=== PATIENT | male | born 1965 | race Caucasian/White ===

== ENCOUNTER → 2019-11-05 09:34 | Outpatient (BNVA) | payer MEDICARE, MEDICAID, SELFPAY | PROVIDERS: PCP Internal Medicine Cardiovascular Disease; Visit Provider Registered Nurse | DX: Z79.899 Other long term (current) drug therapy (principal); F02.80 Dementia in other diseases classified elsewhere, unspecified severity, without behavioral disturbance, psychotic disturbance, mood disturbance, and anxiety; F20.9 Schizophrenia, unspecified | CPT/HCPCS: 80164 ==

== ENCOUNTER → 2020-05-04 14:01 | Outpatient (BNVA) | payer OTHER, SELFPAY | PROVIDERS: Visit Provider Registered Nurse | DX: F20.9 Schizophrenia, unspecified (principal) | CPT/HCPCS: 80061; 83036 ==

== ENCOUNTER → 2020-12-09 10:58 | Outpatient (BNVA) | payer MEDICARE, MEDICAID, SELFPAY ==
[2020-12-09 08:18] VITALS: BP 141/87; BMI 30.5
== END ==
PROVIDERS: Visit Provider Emergency Medicine
DX: R63.4 Abnormal weight loss (principal); F20.9 Schizophrenia, unspecified
CPT/HCPCS: 71046; 80053; 82105; 82378; 84443; 85025; 86304; G0103

== ENCOUNTER → 2020-12-14 00:01 | Outpatient (BNVA) | payer MEDICARE, MEDICAID, SELFPAY ==
[2020-12-09 08:18] VITALS: BP 141/87; BMI 30.5
== END ==
PROVIDERS: Visit Provider Emergency Medicine
DX: R63.4 Abnormal weight loss (principal); F20.9 Schizophrenia, unspecified; R97.20 Elevated prostate specific antigen [PSA]
CPT/HCPCS: 82274

== ENCOUNTER 2020-12-18 08:26 | Emergency (ER) | payer MEDICARE, MEDICAID, SELFPAY ==
[2020-12-09 08:18] VITALS: BP 141/87; BMI 30.5
[2020-12-18] VITALS (7 sets, daily range): BP systolic 89–103; BP diastolic 53–74; PULSE 52–75; RESP 14–21; TEMP 36.6; O2SAT 96–100; BMI 24.0
--- NOTE | 2020-12-18 08:44 | ECG_ITS ---
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 Measurements Intervals [place] Rate: 58 P: 50 AK: 141 QRS: -36 QRSD: 154 T: -85 QT: 509 QTc: 502 Interpretive Statements SINUS BRADYCARDIA POSSIBLE LEFT ATRIAL ENLARGEMENT [-0.1mV P WAVE IN V1/V2] LEFT AXIS DEVIATION [QRS AXIS < -30] RIGHT BUNDLE BRANCH BLOCK [120+ ms QRS DURATION, UPRIGHT V1, 40+ ms S IN I/aVL/V4/V5/V6] MARKED T-WAVE ABNORMALITY, CONSIDER ANTEROLATERAL ISCHEMIA [-0.5+ mV T WAVE IN I/aVL/V3-V6] MODERATE T-WAVE ABNORMALITY, CONSIDER INFERIOR ISCHEMIA [-0.1+ mV T WAVE IN II/aVF] No previous ECG available for comparison Electronically Signed On 12-18-2020 18:13:02 CDT by Harleen Nielsen M.D. [id number]
[2020-12-18 08:55] LABS: Basophils # 0.1 10^3/uL (0.0-0.1); Basophils % 0.7 %; Eosinophils # 0.1 10^3/uL (0.0-0.8); Eosinophils % 0.7 %; Hematocrit 46.3 % (42.0-52.0); Hemoglobin 15.2 g/dL (11.7-16.6); Lymphocytes # 1.1 10^3/uL (0.8-4.8); Lymphocytes % 15.3 %; Mean Corpuscular HGB Conc 32.8 g/dL (30.0-36.0); Mean Corpuscular Hemoglobin 28.6 pg (28.0-34.0); Mean Corpuscular Volume 87.2 fL (80-94); Mean Platelet Volume 9.8 fL (7.4-10.4); Monocytes # 0.4 10^3/uL (0.2-0.9); Neutrophils # 5.27 10^3/uL (1.8-7.7); Nucleated Red Blood Cells % 0 %; Platelet Count 302 10^3/cmm (130-400); Red Blood Count 5.31 10^6/uL (4.1-5.3); White Blood Count 6.9 10^3/uL (4.0-10.0)
--- NOTE | 2020-12-18 09:00 | ED_ITS ---
HPI - Nausea/Vomiting/Diarrhea General: Chief complaint: Nausea/Vomiting/Diarrhea Stated complaint: NAUSEA/VOMITING Time Seen by Provider: 12/18/20 08:33 History of Present Illness: HPI Narrative: 55-year-old male who was brought in by his sister via EMS. He was supposed to be seen at the doctor today she was concerned and describes being stressed about having him in her car so she called EMS to come to the emergency room. Patient has had a 40 pound weight loss over the last several months he has an ongoing outpatient work-up for this. On arrival here patient's blood sugar is 135 he is requesting water. He has not had any vomiting in route. He denies any abdominal pain or chest pain. MD elicited complaint: nausea and vomiting Onset (ago): week(s) Description of vomiting: food contents and watery Associated nausea: Yes Associated abdominal pain: No Severity: moderate Quality: cramping Exacerbating factors: none Relieving factors: none Associated symtoms: Reports anxiety, anorexia, malaise, myalgias, nausea and other; Denies altered mental status, bloating, change in vision, chest pain, cough, diaphoresis, decreased urine output, dizziness, dysuria, epistaxis, fatigue, fecal incontinence, fevers/chills, headache(s), numbness, palpitations, rash, short of breath, syncope, tenesmus, tinnitus or weakness Review of Systems Const: Reports: malaise; Denies: fatigue or diaphoresis Eyes: Denies: change in vision ENMT: Denies: tinnitus or epistaxis Card: Denies: chest pain, palpitations or syncope Resp: Denies: dyspnea, productive cough or non-productive cough GI: Reports: nausea; Denies: bloating or fecal incontinence : Denies: dysuria Skin/Breast: Denies: rash or pruritus Neuro: Denies: headache(s) or dizziness Psych: Reports: anxiety PFSH ED PFSH: Medical History (Updated 12/18/20 @ 12:38 by Antonio Brady DO) Chronic schizophrenia Dementia in other diseases classified elsewhere without behavioral disturbance High prostate specific antigen (PSA) History of CA 125 test Weight loss, abnormal Surgical History (Updated 02/21/20 @ 18:02 by Harleen Nielsen MD) S/P VSD repair Family History (Updated 05/07/20 @ 11:54 by Zoie Mo RN) Other CAD (coronary artery disease) Cancer Diabetes Hypertension Psychiatric illness Stroke Social History Smoking and tobacco status: never smoked Second hand smoke exposure: Yes Alcohol intake: never Adopted: No Caregiver/support person: Yes Lives independently: No Household members: family Marital status: Single Number of children: 0 Number of grandchildren: 0 Highest education level completed: 10th Grade service: No Current occupational status: disabled Current occupational exposures/hazards: No Pets and animals: Yes Pets & animals: cat(s) and dog(s) History of recent travel: No Leisure activites: other Leisure activities details: watch tv, bowling and PSR Sexually active: No Current gender identity: Male Monika/Evangelical: None Special monika needs: No Agree to transfusion: Yes Financial difficulty paying for basics: Not Very Hard Physical Exam Const: COMMON NORMALS: no acute distress EXAM LIMITATIONS: no altered mental status GENERAL APPEARANCE: cooperative and comfortable ORIENTATION/CONSCIOUSNESS: Yes awake, Yes oriented to person, Yes oriented to place and Yes oriented to time HENMT: COMMON NORMALS: normocephalic, atraumatic, hearing grossly normal bilaterally, external ears normal, EAC's normal, TM's normal bilaterally, Normal nasal mucous membranes and turbinates present, moist oral mucous membranes and oropharynx normal HEAD & SCALP: normocephalic and atraumatic NOSE: Normal nasal mucous membranes and turbinates present EXTERNAL EAR: Yes external ears normal EXTERNAL AUDITORY CANAL: EAC's normal TYMPANIC MEMBRANE: TM's normal bilaterally Eye: COMMON NORMALS: Equal, round and reactive pupils present, EOMs intact bilaterally, conjunctivae normal and no scleral icterus CONJUNCTIVA: Yes conjunctivae normal PUPIL: Yes Equal, round and reactive pupils present Neck/C-Spine: COMMON NORMALS: full ROM, no lymphadenopathy, supple and no JVD Lymph: LYMPHATIC: no lymphadenopathy noted and no lymphedema noted Resp: COMMON NORMALS: normal respiratory effort, No retractions, No use of accessory muscles and clear to auscultation bilaterally AUSCULTATION: clear to auscultation bilaterally Cardio: COMMON NORMALS: no JVD, regular rate, regular rhythm and No murmurs present (Cardio) RATE: regular rate RHYTHM: regular rhythm GI: COMMON NORMALS: Soft to palpation and No hepatosplenomegaly present AUSCULTATION: Yes normoactive bowel sounds PALPATION: Yes Soft to palpation, No Tenderness to palpation present (GI), No Guarding due to palpation present (GI) and Yes No hepatosplenomegaly present Extremity: COMMON NORMALS: normal to inspection, capillary refill normal, no clubbing, cyanosis or edema, no calf tenderness and no pedal edema Neuro: SENSORIUM/ORIENTATION: Yes oriented to person, Yes oriented to place and Yes oriented to time Skin: COMMON NORMALS: no rashes or lesions noted GENERAL SKIN EXAM: no rashes or lesions noted Course Vital Signs: Vital signs: Vital Signs Temperature 97.8 F 12/18/20 08:32 Pulse Rate 52 L 12/18/20 13:08 Respiratory Rate 14 12/18/20 13:08 Blood Pressure 89/67 12/18/20 12:03 Pulse Oximetry 100 12/18/20 13:08 MDM - Nausea/Vomiting/Diarrhea MDM Narrative: Medical decision making narrative: No significant findings here in the ER. Patient was given potassium supplement for his hypokalemia p.o. and IV as well as IV fluids we will discharge him home with antiemetics potassium supplement follow-up with primary care he is possibly seeing surgery for endoscopy encouraged him to keep that appointment reviewed the CT findings with him. Lab Data: Labs: Lab Results 12/18/20 12/18/20 12/18/20 Range/Units 08:47 08:47 10:40 WBC 6.9 (4.0-10.0) 10^3/ uL RBC 5.31 H (4.1-5.3) 10^6/u L Hgb 15.2 (11.7-16.6) g/dL Hct 46.3 (42.0-52.0) % MCV 87.2 (80-94) fL MCH 28.6 (28.0-34.0) pg MCHC 32.8 (30.0-36.0) g/dL RDW 14.0 (12.1-15.1) % Plt Count 302 (130-400) 10^3/c mm MPV 9.8 (7.4-10.4) fL Neut % (Auto) 77.0 % Lymph % (Auto) 15.3 % [place]phill % (Auto) 6.0 % Eos % (Auto) 0.7 % Baso % (Auto) 0.7 % Neut # (Auto) 5.27 (1.8-7.7) 10^3/u L Lymph # (Auto) 1.1 (0.8-4.8) 10^3/u L Hemphill # (Auto) 0.4 (0.2-0.9) 10^3/u L Eos # (Auto) 0.1 (0.0-0.8) 10^3/u L Baso # (Auto) 0.1 (0.0-0.1) 10^3/u L Nucleated RBC % (a uto) 0 % Nucleated RBCs # 0.0 /100WBC Sodium 139 (136-145) mmol/L Potassium 2.7 L* (3.5-5.1) mmol/L Chloride 96 L (98-107) mmol/L Carbon Dioxide 24 (22-29) mmol/L Anion Gap 21.7 H (5-19) BUN 20 (6-20) mg/dL Creatinine 0.9 (0.7-1.2) mg/dL GFR Calculation 87.0 L (90-130) mL/min Glucose 113 (65-115) mg/dL Calculated Osmolal ity 291 (285-295) mOsm/k g Calcium 9.1 (8.5-10.5) mg/dL Magnesium 2.3 (1.7-2.3) mg/dL Total Bilirubin 0.9 (0.15-1.2) mg/dL AST 19 (0-40) U/L ALT 15 (0-41) U/L Alkaline Phosphata se 80 (40-130) IU/L Creatine Kinase 24 L (39-308) U/L Total Protein 7.5 (6.6-8.7) g/dL Albumin 3.9 (3.5-5.2) g/dL Globulin 3.6 (1.3-4.6) g/dL Lipase 28 (13-60) U/L Urine Color [place] (Yellow) Urine Appearance Turbid (CLEAR) Urine pH 5 (5-7) Ur Specific Gravit y 1.025 (1.005-1.030) Urine Protein Trace (Negative) Urine Glucose (UA) Norm (Normal) Urine Ketones 1+ H (Negative) Urine Blood Neg (Negative) Urine Nitrate Negative (Negative) Urine Bilirubin 1+ H (Negative) Urine Urobilinogen 8 H (Negative) mg/dL Ur Leukocyte Yamileth ase Negative (Negative) Urine RBC 0-4 H (0-2) /hpf Urine WBC 0-4 H (0-5) /hpf Ur Squamous Epith Cells 0-4 H (0-5) /hpf Amorphous Sediment 4+ /hpf Urine Bacteria 1+ H (NONE) /hpf Discharge Plan Discharge Patient Disposition: Home Clinical Impression: Weight loss, abnormal, Nausea & vomiting, Hypokalemia Condition: Stable Prescriptions: New promethazine 25 mg tablet 25 mg PO QID PRN (Reason: nausea and vomiting) Qty: 30 RF: 0 potassium chloride 20 mEq tablet extended release 20 meq PO DAILY Qty: 14 RF: 0 No Action magnesium oxide 250 mg magnesium tablet 250 mg PO DAILY@1500 RF: 0 hydroxyzine HCl 25 mg tablet 25 mg PO BID PRN (Reason: anxiety) Qty: 60 RF: 2 Depakote 250 mg tablet,delayed release (DR/EC) 250 mg PO DAILY@08 RF: 0 Aricept 10 mg tablet 10 mg PO BEDTIME@2100 RF: 0 Depakote 500 mg tablet,delayed release (DR/EC) 500 mg PO BEDTIME@2100 RF: 0 Celexa 20 mg tablet 30 mg PO DAILY@1200 RF: 0 buspirone 15 mg tablet 15 mg PO BID@12,15 RF: 0 Namenda 10 mg tablet 10 mg PO DAILY@0800 RF: 0 Namenda 5 mg tablet 5 mg PO DAILY@0800 RF: 0 Discharge Orders: Discharge ED (Routine); Ordered 12/18/20 Ordered By: Antonio Brady Discharge Diet: Clear Liquid Patient Instructions: Opioid Safety Activity Restrictions/Additional Instructions: Liquid diet for 24 to 48 hours then advance as tolerated recommend avoiding spicy foods, red meats, tomato-based sauces. Follow-up with Dr. Goldberg and Dr. Jain as previously scheduled. Coding Level of Care Code ED Sandal Parts Assembler for Carla Hyatt
[2020-12-18] MEDS: ondansetron 2 mg/ML SDV 2 mL 4 MG IVP (09:11)
[2020-12-18] MEDS: sodium chloride 0.9% 1,000 ML 999 ML IV ×2 (09:11→11:59)
[2020-12-18 09:15] LABS: Alanine Aminotransferase 15 U/L (0-41); Albumin Level 3.9 g/dL (3.5-5.2); Alkaline Phosphatase 80 IU/L (40-130); Anion Gap 21.7 (5-19); Aspartate Amino Transferase 19 U/L (0-40); Blood Urea Nitrogen 20 mg/dL (6-20); Calcium 9.1 mg/dL (8.5-10.5); Carbon Dioxide 24 mmol/L (22-29); Chloride 96 mmol/L (98-107); Creatine Phosphokinase 24 U/L (39-308); Globulin 3.6 g/dL (1.3-4.6); Glucose 113 mg/dL (65-115); Lipase 28 U/L (13-60); Magnesium 2.3 mg/dL (1.7-2.3); Osmolality Calculated 291 mOsm/kg (285-295); Sodium 139 mmol/L (136-145); Total Bilirubin 0.9 mg/dL (0.15-1.2); Total Protein 7.5 g/dL (6.6-8.7)
[2020-12-18 09:41] LABS: Potassium 2.7 mmol/L (3.5-5.1)
[2020-12-18] MEDS: lidocaine 1% 5 ML in potassium chloride premix 100 ML 50 ML IV (09:59)
[2020-12-18] MEDS: potassium chloride oral liq 20 mEq/15 mL UDC 40 MEQ PO (10:00)
--- NOTE | 2020-12-18 10:26 | CT_ITS ---
WS: [id number] CT ABDOMEN AND PELVIS WITH CONTRAST HISTORY: Abdominal pain, LEFT lower quadrant pain for 3 days with nausea and vomiting. TECHNIQUE: Imaging performed of the abdomen and pelvis with IV contrast. Single phase imaging of the abdomen. Coronal and sagittal reformats are submitted. All CT scans at [facility] use at least one of these dose optimization techniques: automated exposure control; mA and/or kV adjustment per patient size (includes targeted exams where dose is matched to clinical indication); or iterativ e reconstruction. IV CONTRAST: Omnipaque 300; 95 mL IV. Oral contrast: No DLP: 1290.88 mGy.cm COMPARISON: None available. Lower thorax: 6 mm nodule at the RIGHT lung base inseparable from the diaphragm contains a central ca lcification. Heart is normal size. No hiatal hernia. Liver/biliary system: Normal size with no intrahepatic dilatation. Gallbladder: Slightly contracted gallbladder. No stones identified. Pancreas: Normal. Spleen: Normal. Adrenal glands: Normal. Right kidney: Normal. Left kidney: Normal. Aorta: Normal. Lymphadenopathy: None. Free fluid: None. GI tract: The appendix is very small caliber. There is a calcific or medicinal tablet at the terminal ileum. There is no evidence for obstruction of the small bowel. There is very mild fluid distention of the small bowel. This may be medicinal tablet. Numerous diverticula in the descending and sigmoid colon. No definite acute diverticulitis. Abdominal wall: Fat-containing umbilical hernia. Pelvis: Markedly enlarged prostate gland is heterogeneous. Prostate measures 5.1 x 4.7 x 5.7 cm. No f luid or adenopathy. Urinary bladder is normally distended. Bones: L5 anterolisthesis by 7 mm. LEFT lateral pars defect. CT/CT abdomen pelvis w con* [id number] IMPRESSION: 1. Descending and sigmoid diverticulosis. No definite evidence for acute diver ticulitis at this time. There is no free fluid or adenopathy. 2. Mild fluid distention of small bowel. 3. There is a calcific density or medicinal tablet in the terminal ileum. Loca ramana at the junction between the cecum and small bowel. This does not appear to be causing a significant obstruction. If patient continues with pain a follow-u p abdomen radiograph would readily identify whether this is a calcific density which resolves or calcification associated with the terminal ileum. 4. Appendix appears normal. 5. 6 mm nodule at the RIGHT lung base. Recommend follow-up chest CT in 6 month s. 6. Marked prostate gland enlargement.
[2020-12-18] MEDS: iohexol 300 mg/mL 100 mL Btl IV (11:27)
[2020-12-18 11:32] LABS: Add Urine Microscopic? YES; Bilirubin Urine 1+ (Negative); Blood Urine Neg (Negative); Glucose Urine UA Norm (Normal); Ketones Urine 1+ (Negative); Leukocyte Esterase Urine Negative (Negative); Nitrate Urine Negative (Negative); Protein Urine Trace (Negative); Specific Gravity, Urine 1.025 (1.005-1.030); Urine Appearance Turbid (CLEAR); Urine Color Orange (Yellow); Urobilinogen Urine 8 mg/dL (Negative); pH Urine 5 (5-7)
[2020-12-18 11:33] LABS: Add Urine Culture? No; Amorphous Sediment Urine 4+ /hpf; Bacteria Urine 1+ /hpf; RBC Urine 0-4 /hpf (0-2); Squamous Epithelial Cell Urine 0-4 /hpf (0-5); WBC Urine 0-4 /hpf (0-5)
[2020-12-18] MEDS: promethazine 25 mg/mL SDV 1 mL IM (11:58)
== END 2020-12-18 13:09 | disposition home or self-care (01) ==
PROVIDERS: Emergency Provider Family Medicine
DX: R11.2 Nausea with vomiting, unspecified (principal); E87.6 Hypokalemia; R63.4 Abnormal weight loss; F03.90 Unspecified dementia, unspecified severity, without behavioral disturbance, psychotic disturbance, mood disturbance, and anxiety; Z77.22 Contact with and (suspected) exposure to environmental tobacco smoke (acute) (chronic)
CPT/HCPCS: 74177; 80053; 81001; 82550; 83690; 83735; 85025; 93005; 96365; 96366; 96372; 96375; 99284; J2405; J2550; J3480; J7030; Q9967

== ENCOUNTER 2020-12-26 10:05 | Inpatient (IN) | payer MEDICARE, MEDICAID, SELFPAY ==
[2020-12-09 08:18] VITALS: BP 141/87; BMI 30.5
[2020-12-26] VITALS (7 sets, daily range): BP systolic 91–156; BP diastolic 70–101; PULSE 81–91; RESP 17–48; TEMP 36.9–37.5; O2SAT 95–99; BMI 28.0
--- NOTE | 2020-12-26 10:21 | CTR_ITS ---
PROCEDURE INFORMATION: Exam: CT Head Without Contrast Exam date and time: 12/26/2020 10:28 AM Age: 55 years old Clinical indication: Altered mental status/memory loss; Additional info: Altered menta status fall TECHNIQUE: Imaging protocol: Computed tomography of the head without contrast. Radiation optimization: All CT scans at this facility use at least one of these dose optimization techniques: automated exposure control; mA and/or kV adjustment per patient size (includes targeted exams where dose is matched to clinical indication); or iterative reconstruction. COMPARISON: No relevant prior studies available. RADIATION DOSE METRICS: Total DLP (mGy-cm): 920.76 FINDINGS: Brain: Symmetric prominence of the cortical sulci relative to the patient's stated age. No acute cortical infarct or intracranial hemorrhage. Cerebral ventricles: Normal configuration of the ventricles. Bones/joints: No acute calvarial pathology. Paranasal sinuses: Trace left sphenoid sinus fluid. Mastoid air cells: No mastoid effusion. Vasculature: Subtle 13 x 7 mm hyperdense density in the region of the right cavernous sinus (series 2: Image 23), which can be better characterized with MRI if clinically indicated. Soft tissues: Unremarkable soft tissues. CT/CT head wo con* [id number] IMPRESSION: 1. Subtle 13 x 7 mm hyperdense density in the region of the right cavernous sinus (series 2: Image 23), which can be better characterized with MRI if clinically indicated. 2. No acute abnormality in the cerebral hemispheres. Radiation Dose CTDIVOL = (mGy): DLP = 920.76 (mGy-cm)
--- NOTE | 2020-12-26 10:22 | ECG_ITS ---
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 Measurements Intervals [place] Rate: 78 P: 15 VT: 110 QRS: -59 QRSD: 149 T: -50 QT: 462 QTc: 527 Interpretive Statements SINUS RHYTHM WITH SHORT VT INTERVAL WITH OCCASIONAL VENTRICULAR PREMATURE COMPLEXESRIGHT BUNDLE BRANCH BLOCK [120+ ms QRS DURATION, UPRIGHT V1, 40+ ms S INI/aVL/V4/V5/V6] LEFT ANTERIOR FASCICULAR BLOCK [QRS AXIS <= -45, QR IN I, RS IN II] MODERATE T-WAVE ABNORMALITY, CONSIDER LATERAL ISCHEMIA [-0.1+ mV T WAVE IN I/aVL/V5/V6]MODERATE T-WAVE ABNORMALITY, CONSIDER INFERIOR ISCHEMIA [-0.1+ mV T WAVE IN II/aVF] Compared to ECG 12/18/2020 08:55:41 Short VT interval now presentLeft anterior fascicular block now present Sinus bradycardia no longer presentLeft-axis deviation no longer present T-wave abnormality still present Possible ischemia still present Heavy baseline artifact, need to repeat Electronically Signed On 12-26-2020 20:25:10 CDT by Ajay Stokes M.D. [id number]
--- NOTE | 2020-12-26 10:22 | XRR_ITS ---
PROCEDURE INFORMATION: Exam: XR Chest Exam date and time: 12/26/2020 10:28 AM Age: 55 years old Clinical indication: Shortness of breath; Additional info: Cough, aspiration TECHNIQUE: Imaging protocol: XR of the chest Views: 1 view. COMPARISON: CR XR chest 2V* [id number] 12/09/2020 11:11 AM FINDINGS: Tubes, catheters and devices: Median sternotomy sutures. Lungs: Mild interstitial prominence without acute airspace disease. Pleural spaces: No pleural effusion. Heart/Mediastinum: Borderline cardiomegaly and prominent epicardial fat. Vasculature: Ectasia of the thoracic aorta. Diaphragm: Asymmetric elevation of the right hemidiaphragm. Bones/joints: Degenerative change. When correlating with the previous study, no significant interval changes are present. XR/XR chest 1V portable [id number] IMPRESSION: Stable appearance of the chest, not significantly changed from 12/09/20.
[2020-12-26] MEDS: naloxone 0.4 mg/ml SDV 1 MG IVP (11:02)
[2020-12-26 11:30] LABS: Basophils % 0.2 %; Hematocrit 44.1 % (42.0-52.0); Hemoglobin 14.7 g/dL (11.7-16.6); Lymphocytes # 0.6 10^3/uL (0.8-4.8); Lymphocytes % 4.3 %; Mean Corpuscular HGB Conc 33.3 g/dL (30.0-36.0); Mean Corpuscular Hemoglobin 29.2 pg (28.0-34.0); Mean Corpuscular Volume 87.7 fL (80-94); Mean Platelet Volume 9.2 fL (7.4-10.4); Monocytes # 0.8 10^3/uL (0.2-0.9); Monocytes % 5.5 %; Neutrophils # 13.08 10^3/uL (1.8-7.7); Neutrophils % 89.6 %; Nucleated Red Blood Cells % 0 %; Platelet Count 275 10^3/cmm (130-400); Red Blood Count 5.03 10^6/uL (4.1-5.3); White Blood Count 14.6 10^3/uL (4.0-10.0)
--- NOTE | 2020-12-26 11:42 | ED_ITS ---
HPI - Overdose General: Chief Complaint: Overdose Stated Complaint: AMS Time Seen by Provider: 12/26/20 10:19 History of Present Illness: HPI Narrative: Patient comes from home via EMS after her daughter went to go check on him and she found him on the floor and he had some dried vomit around his mouth. Patient does live at home alone but he has a history of dementia and some schizophrenia. She last spoke to him last evening and he appeared normal. She did notice today however it appears he may have missed his Monday medications and started to take those today as Saturdays medications are all present. She does not notice any medications missing just that he may be a day behind Patient is oriented to the hospital and that it is close enough orientation to the month she feels he seems a little more out of it than usual he denies injuring himself in the fall denies any pain denies any abdominal pain. Patient's daughter thinks his color looks a little bit off than usual. He does have a history of nausea and vomiting was here on 12/18 for similar symptoms. EMS had given him Narcan per protocol of altered mental status and they thought maybe he improved in the ambulance therefore they thought he overdosed but patient's sister who is the set and exhibit designer says he does not have any opiate medications that he has dementia and schizophrenia and she places all his medications and daily dosages Review of Systems General: Reports: ROS unobtainable due to medical condition Narrative: Unable to obtain review of systems due to patient have dementia and schizophrenia what can be obtained through the sister: Nausea and vomiting unable to tell how many times as well changes in coloration No known fevers or cough no known injuries or trauma from the fall Does have an enlarged prostate but is not noticed any incontinence or diarrhea around the house [facility] ED PFSH: Medical History Chronic schizophrenia Dementia in other diseases classified elsewhere without behavioral disturbance High prostate specific antigen (PSA) History of CA 125 test Weight loss, abnormal Surgical History S/P VSD repair Family History Other CAD (coronary artery disease) Cancer Diabetes Hypertension Psychiatric illness Stroke Social History Smoking and tobacco status: never smoked Second hand smoke exposure: Yes Alcohol intake: never Adopted: No Caregiver/support person: Yes Lives independently: No Household members: family Marital status: Single Number of children: 0 Number of grandchildren: 0 Highest education level completed: 10th Grade service: No Current occupational status: disabled Current occupational exposures/hazards: No Pets and animals: Yes Pets & animals: cat(s) and dog(s) History of recent travel: No Leisure activites: other Leisure activities details: watch tv, bowling and PSR Sexually active: No Current gender identity: Male Monika/Hindu: None Special monika needs: No Agree to transfusion: Yes Financial difficulty paying for basics: Not Very Hard Physical Exam Narrative: EXAM NARRATIVE: General: a/o/2, no distress Head: atraumatic HEENT: normal eyes, normal conjunctiva, normal hearing, normal external nose, normal mouth, mucous membranes moist, dried vomitus around his mouth Neck: FROM, trachea midline Chest: normal expansion, no gross deformities Resp: normal speech, no retractions, no accessory muscle use, CTA bilaterally Cardio: regular rate and rhythm and no murmur, no peripheral edema, normal peripheral pulses GI: soft, flat non tender, no guarding normal BS denies pain on exam : deferred Musculoskeletal: FROM, no pain or gross deformities no pain with range of motion of his extremities no hip pain no spine pain Neuro: a/o almost back to baseline per sister but he seems a little bit slower than usual, no gross motor or sensory deficits, CN II-XII grossly intact, normal coordination, patient simple answers are easy to understand he is not have his dentures in place Skin: no rashes Psych: cooperative, normal mood and effect Course ED course: Of note patient does not have any opiates at home we believe what happened is EMS gave Narcan as routine protocol when you have an altered mental status and that they felt maybe he improved after the Narcan however he could have improved just from having an IV in place or from stimulus sister is very adamant he does not take any type of opiates Vital Signs: Vital signs: Vital Signs Temperature 98.4 F 12/26/20 10:05 Pulse Rate 91 12/26/20 13:53 Respiratory Rate 48 H 12/26/20 13:53 Blood Pressure 108/74 12/26/20 13:53 Pulse Oximetry 95 12/26/20 13:53 MDM - Overdose MDM Narrative: Medical decision making narrative: She was just here recently for vomiting and weight loss as well and had a CT of his abdomen and pelvis December 18 due to some vomiting. He denies any abdominal pain on exam. Should mention has had previous prostate enlargement. His total CK was normal. Nursing staff went to cath patient for an in and out cath and was able to obtain 800 cc of retained urine and it was dark. Liver functions are normal his recent CT scan was reviewed and there is no signs of gallstones. He does have an elevated lactate IV fluids were started. Urine was sent however this was a urine that was also retained in his bladder a urine culture is pending we will start empiric antibiotics. His potassium is low again gave him 40 mEq of oral potassium will speak to Dr. Tse about admitting the patient Lab Data: Labs: Lab Results 12/26/20 12/26/20 12/26/20 Range/Units 11:12 11:12 11:12 WBC 14.6 H (4.0-10.0) 10^3/ uL RBC 5.03 (4.1-5.3) 10^6/u L Hgb 14.7 (11.7-16.6) g/dL Hct 44.1 (42.0-52.0) % MCV 87.7 (80-94) fL MCH 29.2 (28.0-34.0) pg MCHC 33.3 (30.0-36.0) g/dL RDW 14.0 (12.1-15.1) % Plt Count 275 (130-400) 10^3/c mm MPV 9.2 (7.4-10.4) fL Neut % (Auto) 89.6 % Lymph % (Auto) 4.3 % Perkins % (Auto) 5.5 % Eos % (Auto) 0.0 % Baso % (Auto) 0.2 % Neut # (Auto) 13.08 H (1.8-7.7) 10^3/u L Lymph # (Auto) 0.6 L (0.8-4.8) 10^3/u L Perkins # (Auto) 0.8 (0.2-0.9) 10^3/u L Eos # (Auto) 0.0 (0.0-0.8) 10^3/u L Baso # (Auto) 0.0 (0.0-0.1) 10^3/u L Nucleated RBC % (a uto) 0 % Nucleated RBCs # 0.0 /100WBC Sodium 134 L (136-145) mmol/L Potassium 2.9 L (3.5-5.1) mmol/L Chloride 97 L (98-107) mmol/L Carbon Dioxide 23 (22-29) mmol/L Anion Gap 16.9 (5-19) BUN 14 (6-20) mg/dL Creatinine 0.9 (0.7-1.2) mg/dL GFR Calculation 87.0 L (90-130) mL/min Glucose 115 (65-115) mg/dL Calculated Osmolal ity 279 L (285-295) mOsm/k g Lactate 4.4 H* (0.5-2.2) mmol/L Calcium 9.1 (8.5-10.5) mg/dL Total Bilirubin 1.4 H (0.15-1.2) mg/dL AST 18 (0-40) U/L ALT 13 (0-41) U/L Alkaline Phosphata se 80 (40-130) IU/L Creatine Kinase 207 (39-308) U/L Total Protein 6.4 L (6.6-8.7) g/dL Albumin 3.7 (3.5-5.2) g/dL Globulin 2.7 (1.3-4.6) g/dL Lipase 11 L (13-60) U/L Urine Color (Yellow) Urine Appearance (CLEAR) Urine pH (5-7) Ur Specific Gravit y (1.005-1.030) Urine Protein (Negative) Urine Glucose (UA) (Normal) Urine Ketones (Negative) Urine Blood (Negative) Urine Nitrate (Negative) Urine Bilirubin (Negative) Urine Urobilinogen (Negative) mg/dL Ur Leukocyte Yamileth ase (Negative) Urine RBC (0-2) /hpf Urine WBC (0-5) /hpf Ur Squamous Epith Cells (0-5) /hpf Amorphous Sediment Urine Bacteria (NONE) /hpf Urine Mucus /hpf Salicylates < 0.3 L (3-10) mg/dL Urine Opiates Scre en (Negative) ng/mL Acetaminophen < 5.0 L (10-30) ug/mL Ur Barbiturates Sc reen (Negative) ng/mL Valproic Acid (50-100) ug/mL Ur Phencyclidine S crn (Negative) ng/mL Ur Amphetamines Sc reen (Negative) ng/mL U Benzodiazepines Scrn (Negative) ng/mL Urine Cocaine Scre en (Negative) ng/mL U Marijuana (THC) Screen (Negative) ng/mL Ethyl Alcohol < 10 (0-10) mg/dL 12/26/20 12/26/20 12/26/20 Range/Units 11:12 13:50 13:50 WBC (4.0-10.0) 10^3/ uL RBC (4.1-5.3) 10^6/u L Hgb (11.7-16.6) g/dL Hct (42.0-52.0) % MCV (80-94) fL MCH (28.0-34.0) pg MCHC (30.0-36.0) g/dL RDW (12.1-15.1) % Plt Count (130-400) 10^3/c mm MPV (7.4-10.4) fL Neut % (Auto) % Lymph % (Auto) % Perkins % (Auto) % Eos % (Auto) % Baso % (Auto) % Neut # (Auto) (1.8-7.7) 10^3/u L Lymph # (Auto) (0.8-4.8) 10^3/u L Perkins # (Auto) (0.2-0.9) 10^3/u L Eos # (Auto) (0.0-0.8) 10^3/u L Baso # (Auto) (0.0-0.1) 10^3/u L Nucleated RBC % (a uto) % Nucleated RBCs # /100WBC Sodium (136-145) mmol/L Potassium (3.5-5.1) mmol/L Chloride (98-107) mmol/L Carbon Dioxide (22-29) mmol/L Anion Gap (5-19) BUN (6-20) mg/dL Creatinine (0.7-1.2) mg/dL GFR Calculation (90-130) mL/min Glucose (65-115) mg/dL Calculated Osmolal ity (285-295) mOsm/k g Lactate (0.5-2.2) mmol/L Calcium (8.5-10.5) mg/dL Total Bilirubin (0.15-1.2) mg/dL AST (0-40) U/L ALT (0-41) U/L Alkaline Phosphata se (40-130) IU/L Creatine Kinase (39-308) U/L Total Protein (6.6-8.7) g/dL Albumin (3.5-5.2) g/dL Globulin (1.3-4.6) g/dL Lipase (13-60) U/L Urine Color Daphne (Yellow) Urine Appearance Clear (CLEAR) Urine pH 5 (5-7) Ur Specific Gravit y 1.015 (1.005-1.030) Urine Protein Trace (Negative) Urine Glucose (UA) Norm (Normal) Urine Ketones 1+ H (Negative) Urine Blood 3+ H (Negative) Urine Nitrate Negative (Negative) Urine Bilirubin 1+ H (Negative) Urine Urobilinogen 4 H (Negative) mg/dL Ur Leukocyte Yamileth ase Negative (Negative) Urine RBC 15-25 H (0-2) /hpf Urine WBC Rare (0-5) /hpf Ur Squamous Epith Cells None (0-5) /hpf Amorphous Sediment Not Reportable Urine Bacteria 2+ H (NONE) /hpf Urine Mucus 2+ /hpf Salicylates (3-10) mg/dL Urine Opiates Scre en Negative (Negative) ng/mL Acetaminophen (10-30) ug/mL Ur Barbiturates Sc reen Negative (Negative) ng/mL Valproic Acid 10.6 L (50-100) ug/mL Ur Phencyclidine S crn Negative (Negative) ng/mL Ur Amphetamines Sc reen Negative (Negative) ng/mL U Benzodiazepines Scrn Negative (Negative) ng/mL Urine Cocaine Scre en Negative (Negative) ng/mL U Marijuana (THC) Screen Negative (Negative) ng/mL Ethyl Alcohol (0-10) mg/dL Discharge Plan Discharge Patient Disposition: Admitted As Inpatient Clinical Impression: Fall, Vomiting, Altered mental status, Chronic hypokalemia, Acute urinary retention, Acute dehydration Condition: Stable Coding Level of Care Code ED Gmat Tutor for Carla Hyatt
[2020-12-26 11:49] LABS: Alanine Aminotransferase 13 U/L (0-41); Albumin Level 3.7 g/dL (3.5-5.2); Alkaline Phosphatase 80 IU/L (40-130); Anion Gap 16.9 (5-19); Aspartate Amino Transferase 18 U/L (0-40); Blood Urea Nitrogen 14 mg/dL (6-20); Calcium 9.1 mg/dL (8.5-10.5); Carbon Dioxide 23 mmol/L (22-29); Chloride 97 mmol/L (98-107); Creatine Phosphokinase 207 U/L (39-308); Globulin 2.7 g/dL (1.3-4.6); Glucose 115 mg/dL (65-115); Lipase 11 U/L (13-60); Osmolality Calculated 279 mOsm/kg (285-295); Sodium 134 mmol/L (136-145); Total Bilirubin 1.4 mg/dL (0.15-1.2); Total Protein 6.4 g/dL (6.6-8.7)
[2020-12-26 12:10] LABS: Lactate (Lactic Acid level) 4.4 mmol/L (0.5-2.2); Salicylate < 0.3 mg/dL (3-10)
[2020-12-26 12:11] LABS: Acetaminophen < 5.0 ug/mL (10-30); Alcohol Level < 10 mg/dL (0-10); Potassium 2.9 mmol/L (3.5-5.1)
[2020-12-26 12:20] LABS: Valproic Acid Level 10.6 ug/mL (50-100)
[2020-12-26] MEDS: sodium chloride 0.9% 1,000 ML 999 ML IV (14:06)
[2020-12-26] MEDS: potassium chloride oral liq 20 mEq/15 mL UDC 40 MEQ PO (14:06)
[2020-12-26 14:20] LABS: Bilirubin Urine 1+ (Negative); Blood Urine 3+ (Negative); Glucose Urine UA Norm (Normal); Ketones Urine 1+ (Negative); Leukocyte Esterase Urine Negative (Negative); Nitrate Urine Negative (Negative); Protein Urine Trace (Negative); RBC Urine 15-25 /hpf (0-2); Specific Gravity, Urine 1.015 (1.005-1.030); Urine Appearance Clear (CLEAR); Urine Color Amber (Yellow); Urobilinogen Urine 4 mg/dL (Negative); WBC Urine RARE /hpf (0-5); pH Urine 5 (5-7)
[2020-12-26 14:21] LABS: Add Urine Culture? Yes; Bacteria Urine 2+ /hpf; Mucus Urine 2+ /hpf
[2020-12-26 14:22] LABS: Amphetamines Screen Urine Negative (Negative); Barbiturates Screen Urine Negative (Negative); Benzodiazepines Screen Urine Negative (Negative); Cocaine Screen Urine Negative (Negative); Opiate Screen Urine Negative (Negative); PCP Screen Urine Negative (Negative); THC Screen Urine Negative (Negative)
--- NOTE | 2020-12-26 14:47 | P.HP_ITS ---
Providers/Chief Complaint Primary Care Provider: Kira Jay Chief Complaint: AMS History of Present Illness Bryant Martin JR is a 55 year old male WITH pmh of depression,schizophrenia, BPH, Lewy body dementia without behavioral disturbance was brought in by the EMS after her sister went to go check on him and she found him on the floor and he had some dried vomit around his mouth. He live at home alone but he has a history of dementia and some schizophrenia. Sister last spoke to him last evening and he appeared normal. She did notice today however it appears he may have missed his Monday medications and started to take those today as Saturdays medications are all present. She does not notice any medications missing just that he may be a day behind Patient is oriented to the hospital and that it is close enough orientation to the month she feels he seems a little more out of it than usual he denies injuring himself in the fall denies any pain denies any abdominal pain. Patient's daughter thinks his color looks a little bit off than usual. He does have a history of nausea and vomiting was here on 12/18 for similar symptoms. EMS had given him Narcan per protocol of altered mental status and they thought maybe he improved in the ambulance therefore they thought he overdosed but patient's sister who is the diesel maintenance technician says he does not have any opiate medications that he has dementia and schizophrenia and she places all his medications and daily dosages.She was just here recently for vomiting and weight loss as well and had a CT of his abdomen and pelvis December 18 due to some vomiting.He denies any abdominal pain on exam. Should mention has had previous prostate enlargement. His total CK was normal. Nursing staff went to cath patient for an in and out cath and was able to obtain 800 cc of retained urine and it was dark. Liver functions are normal his recent CT scan was reviewed and there is no signs of gallstones. He does have an elevated lactate IV fluids were started. Urine was sent however this was a urine that was also retained in his bladder a urine culture is pending we will start empiric antibiotics. His potassium is low again gave him 40 mEq of oral potassium. C.T Head without Contarst : No acute intracranial pathology Xray chest : Mild interstitial prominence without acute airspace disease. Pleural spaces: No pleural effusion Review of Systems Const: Denies: fever(s) Card: Denies: palpitations Resp: Denies: productive cough or wheezing GI: Denies: abdominal pain or nausea Musc: Denies: back pain or extremity swelling Medications/Allergies Home Medications Medication Instructions Recorded Confirmed Last Taken Type magnesium oxide 250 mg PO DAILY@1500 02/21/20 12/26/20 12/24/20 History hydroxyzine HCl 25 mg tablet 25 mg PO BID PRN #60 tab 12/17/20 12/26/20 12/26/20 Rx buspirone 15 mg PO BID@12,15 12/18/20 12/26/20 12/24/20 History citalopram [Celexa] 30 mg PO DAILY@1200 12/18/20 12/26/20 12/24/20 History divalproex [Depakote] 250 mg PO DAILY@08 12/18/20 12/26/20 12/26/20 History divalproex [Depakote] 500 mg PO BEDTIME@2100 12/18/20 12/26/20 12/24/20 History donepezil [Aricept] 10 mg PO BEDTIME@2100 12/18/20 12/26/20 12/25/20 History memantine [Namenda] 5 mg PO DAILY@0800 12/18/20 12/26/20 12/26/20 History memantine [Namenda] 10 mg PO DAILY@0800 12/18/20 12/26/20 12/26/20 History promethazine 25 mg PO QID PRN #30 tab 12/18/20 12/26/20 12/26/20 Rx food supplemt, lactose-reduced 1 ea PO TID #414 ml 12/21/20 12/26/20 12/25/20 Rx potassium chloride 20 meq PO DAILY@0800 12/26/20 12/26/20 12/26/20 History Allergies Allergy/AdvReac Type Severity Reaction Status Date / Time No Known Allergies Allergy Verified 12/26/20 10:20 PFSH Acute PFSH: Medical History Chronic schizophrenia Dementia in other diseases classified elsewhere without behavioral disturbance High prostate specific antigen (PSA) History of CA 125 test Weight loss, abnormal Surgical History S/P VSD repair Family History Other CAD (coronary artery disease) Cancer Diabetes Hypertension Psychiatric illness Stroke Social History Smoking and tobacco status: never smoked Second hand smoke exposure: Yes Alcohol intake: never Adopted: No Caregiver/support person: Yes Lives independently: No Household members: family Marital status: Single Number of children: 0 Number of grandchildren: 0 Highest education level completed: 10th Grade service: No Current occupational status: disabled Current occupational exposures/hazards: No Pets and animals: Yes Pets & animals: cat(s) and dog(s) History of recent travel: No Leisure activites: other Leisure activities details: watch tv, bowling and PSR Sexually active: No Current gender identity: Male Monika/Scientology: None Special monika needs: No Agree to transfusion: Yes Financial difficulty paying for basics: Not Very Hard Vitals/I&O/Wt Last Vital Signs Temp 98.4 F 12/26/20 10:05 Pulse 91 12/26/20 13:53 Resp 48 H 12/26/20 13:53 BP 108/74 12/26/20 13:53 Pulse Ox 95 12/26/20 13:53 Weight last 48 hrs Weight 86.183 kg Physical Exam HENMT: COMMON NORMALS: normocephalic and atraumatic HEAD & SCALP: normocephalic and atraumatic Chest: CHEST: Yes Symmetrical chest wall rise Resp: COMMON NORMALS: normal respiratory effort and clear to auscultation bilaterally EFFORT & INSPECTION: Yes symmetric chest movement AUSCULTATION: clear to auscultation bilaterally Cardio: COMMON NORMALS: regular rate, regular rhythm, S1 normal heart sound present, S2 normal heart sound present, No gallops present (Cardio), No murmurs present (Cardio), No rub (Cardio) and Peripheral pulses 2+ throughout RATE: regular rate RHYTHM: regular rhythm HEART SOUNDS: S1 normal heart sound present and S2 normal heart sound present PERIPHERAL PULSES: Peripheral pulses 2+ throughout GI: COMMON NORMALS: Normal to inspection, nondistended, normoactive bowel soun ds present, Soft to palpation, non-tender, No hepatosplenomegaly present and no masses AUSCULTATION: Yes normoactive bowel sounds PALPATION: Yes Soft to palpation and Yes No hepatosplenomegaly present RECTAL EXAM: Yes deferred Extremity: COMMON NORMALS: no clubbing, cyanosis or edema and no pedal edema Neuro: COMMON NORMALS: patient oriented x3 Data : 12/27/20 06:38 12/27/20 06:38 A&P Assessment and plan (1) SIRS (systemic inflammatory response syndrome): Sepsis; Leukocytosis, tachypenia,hypothermia,elevated lactate : Possible UTI Blood Culture Urine Culture Procal Cef 1 gm q24 h daily Status: Acute (2) Acute dehydration: Status: Acute (3) Acute urinary retention: Status: Acute (4) Vomiting: Status: Acute Qualifiers: Nausea presence: unspecified Vomiting Intractability: unspecified Vomiting type: unspecified Qualified Code(s): R11.10 - Vomiting, unspecified (5) Hematuria: Status: Acute (6) Fall: Status: Acute Qualifiers: Encounter type: initial encounter Qualified Code(s): W19.XXXA - Unspecified fall, initial encounter (7) Chronic hypokalemia: Status: Acute (8) Dementia in other diseases classified elsewhere without behavioral disturbance: Status: Acute (9) Chronic schizophrenia: Status: Acute Attestations Medical Necessity Statement*: Patient needs to be in hospital for the management of sepsis.Anticipated LOS Greater then 2 midnights. Coding Level of Care Code Acute White Washer Piler for g Fwd Exam Detailed Diagnoses SIRS (systemic inflammatory response syndrome) R65.10 Acute dehydration E86.0 Acute urinary retention R33.8 Vomiting R11.10 Nausea presence: unspecified Vomiting Intractability: unspecified Vomiting type: unspecified Hematuria R31.9 Fall W19.XXXA Encounter type: initial encounter Chronic hypokalemia E87.6 Dementia in other diseases classified elsewhere without behavioral disturbance F02.80 Chronic schizophrenia F20.9
[2020-12-26] MEDS: sodium chlor 0.9% + KCl 20 mEq 20 MEQ/1,000 ML BAG 100 MEQ IV (16:08)
[2020-12-26] MEDS: cefTRIAXone 1,000 MG in sodium chloride 0.9% (plus) 50 ML 100 MG IV (17:58)
[2020-12-26] MEDS: enoxaparin 40 mg/0.4 mL Syringe SUBCUT (17:58)
[2020-12-26] MEDS: donepezil 5 MG Tablet 10 MG PO (20:30)
[2020-12-26] MEDS: divalproex DR 500 mg Tablet PO (20:31)
[2020-12-26] MEDS: tamsulosin 0.4 mg Capsule PO (21:50)
[2020-12-26] MEDS: hyDRALAzine 20 mg/mL INJ 1 mL 10 MG IVP (21:50)
[2020-12-27] VITALS (8 sets, daily range): BP systolic 105–136; BP diastolic 72–89; PULSE 64–87; RESP 17–20; TEMP 36.2–37.5; O2SAT 94–97
[2020-12-27] MEDS: sodium chlor 0.9% + KCl 20 mEq 20 MEQ/1,000 ML BAG 75 MEQ IV ×2 (04:31→22:35)
[2020-12-27 07:04] LABS: Basophils % 0.2 %; Eosinophils % 0.2 %; Hematocrit 40.3 % (42.0-52.0); Hemoglobin 13.1 g/dL (11.7-16.6); Lymphocytes # 0.8 10^3/uL (0.8-4.8); Lymphocytes % 6.3 %; Mean Corpuscular HGB Conc 32.5 g/dL (30.0-36.0); Mean Corpuscular Volume 89.4 fL (80-94); Mean Platelet Volume 9.4 fL (7.4-10.4); Monocytes # 0.6 10^3/uL (0.2-0.9); Monocytes % 5.1 %; Neutrophils # 10.55 10^3/uL (1.8-7.7); Neutrophils % 87.5 %; Nucleated Red Blood Cells % 0 %; Platelet Count 213 10^3/cmm (130-400); Red Blood Count 4.51 10^6/uL (4.1-5.3); Red Cell Distribution Width 14.7 % (12.1-15.1); White Blood Count 12.1 10^3/uL (4.0-10.0)
[2020-12-27 07:37] LABS: Procalcitonin 0.42 ng/mL (0-0.5)
[2020-12-27 07:48] LABS: Alanine Aminotransferase 10 U/L (0-41); Albumin Level 2.9 g/dL (3.5-5.2); Alkaline Phosphatase 71 IU/L (40-130); Anion Gap 12.7 (5-19); Aspartate Amino Transferase 14 U/L (0-40); Blood Urea Nitrogen 16 mg/dL (6-20); Calcium 8.5 mg/dL (8.5-10.5); Carbon Dioxide 21 mmol/L (22-29); Chloride 107 mmol/L (98-107); Globulin 2.3 g/dL (1.3-4.6); Glomerular Filtration Rate 116.2 mL/min (90-130); Glucose 101 mg/dL (65-115); Osmolality Calculated 285 mOsm/kg (285-295); Potassium 3.7 mmol/L (3.5-5.1); Sodium 137 mmol/L (136-145); Total Bilirubin 0.7 mg/dL (0.15-1.2); Total Protein 5.2 g/dL (6.6-8.7)
[2020-12-27] MEDS: tamsulosin 0.4 mg Capsule PO (09:21)
[2020-12-27] MEDS: divalproex DR 250 mg Tablet PO (09:22)
[2020-12-27] MEDS: memantine 5 mg tablet 15 MG PO (09:23)
[2020-12-27] MEDS: potassium chloride ER 20 mEq Tablet PO (09:23)
[2020-12-27 12:21] LABS: Lactate (Lactic Acid level) 1.6 mmol/L (0.5-2.2)
--- NOTE | 2020-12-27 12:22 | PM.PN ---
Subjective Subjective: Interval history: was alert, awake and oriented ( AO *2 ). He was very pleasant today. Has remained afebrile.WBC is trending down.Needed lynch to be placed as there was urinary retention. Post lynch placement 800cc urine output. Vitals/I&O/Wt Last Vital Signs Temp 98.6 F 12/27/20 11:16 Pulse 73 12/27/20 11:16 Resp 18 12/27/20 11:16 BP 105/74 12/27/20 11:16 Pulse Ox 94 12/27/20 11:16 12/26/20 12/27/20 12/27/20 22:59 06:59 14:59 Intake Total 1613.333 / 1613.333 436.667 / 2050.000 Output Total 0 / 0 100 / 100 Balance 1613.333 / 1613.333 336.667 / 1950.000 Weight last 48 hrs Weight 86.183 kg Physical Exam Const: COMMON NORMALS: patient oriented x3 HENMT: COMMON NORMALS: normocephalic and atraumatic HEAD & SCALP: normocephalic and atraumatic Chest: CHEST: Yes Symmetrical chest wall rise Resp: COMMON NORMALS: normal respiratory effort and clear to auscultation bilaterally EFFORT & INSPECTION: Yes symmetric chest movement AUSCULTATION: clear to auscultation bilaterally Cardio: COMMON NORMALS: regular rate, regular rhythm, S1 normal heart sound present, S2 normal heart sound present, No gallops present (Cardio), No murmurs present (Cardio), No rub (Cardio) and Peripheral pulses 2+ throughout RATE: regular rate RHYTHM: regular rhythm HEART SOUNDS: S1 normal heart sound present and S2 normal heart sound present PERIPHERAL PULSES: Peripheral pulses 2+ throughout GI: COMMON NORMALS: Normal to inspection, nondistended, normoactive bowel sounds present, Soft to palpation, non-tender, No hepatosplenomegaly present and no masses AUSCULTATION: Yes normoactive bowel sounds PALPATION: Yes Soft to palpation and Yes No hepatosplenomegaly present RECTAL EXAM: Yes deferred Extremity: COMMON NORMALS: no clubbing, cyanosis or edema and no pedal edema Neuro: COMMON NORMALS: patient oriented x3 Urinary Catheter Management^: Coude: Cath Placed During This Visit: yes Reason for Continuing Indwelling Catheter: Acute Urinary Retention or Obstruction Urinary Catheter Date of Insertion: 12/27/20 Urinary Catheter Time of Insertion: 04:23 Data : 12/27/20 06:38 12/27/20 06:38 Micro: Microbiology 12/26/20 13:50 Urine Culture - Preliminary Urine,Clean Catch 12/26/20 15:18 Blood Culture - Preliminary Blood SPECIMEN COLLECTED 12/26/20 15:15 Blood Culture - Preliminary Blood SPECIMEN COLLECTED A&P Assessment and plan (1) Sepsis: Sepsis; Leukocytosis, tachypenia,hypothermia,elevated lactate : Possible UTI Blood Culture:NTD Urine Culture:NTD Procal:0.42 Cef 1 gm q24 h daily Status: Acute (2) Acute dehydration: Status: Acute (3) Acute urinary retention: Possible cause, medications,enlarged Prostrate Currently has indwelling lynch. Will give voiding trail at appropriate time. Flomax 0.4 mg po daily Possible Urology consult Status: Acute (4) Vomiting: Status: Acute Qualifiers: Nausea presence: unspecified Vomiting Intractability: unspecified Vomiting type: unspecified Qualified Code(s): R11.10 - Vomiting, unspecified (5) Hematuria: Follow Repeat urine analysis.No renal calculi Possibly due to UTI Status: Acute (6) Fall: Status: Acute Qualifiers: Encounter type: initial encounter Qualified Code(s): W19.XXXA - Unspecified fall, initial encounter (7) Chronic hypokalemia: Status: Acute (8) Dementia in other diseases classified elsewhere without behavioral disturbance: Status: Acute (9) Chronic schizophrenia: Status: Acute (10) Enlarged prostate: Urology follow up Status: Acute Attestations Medical Necessity Statement*: Patient needs to be in hospital for the management of sepsis, dehydration,acute urinary retention. Coding Level of Care Code Acute Risk Management Specialist for [facility] Fwd Diagnoses Sepsis A41.9 Acute dehydration E86.0 Acute urinary retention R33.8 Vomiting R11.10 Nausea presence: unspecified Vomiting Intractability: unspecified Vomiting type: unspecified Hematuria R31.9 Fall W19.XXXA Encounter type: initial encounter Chronic hypokalemia E87.6 Dementia in other diseases classified elsewhere without behavioral disturbance F02.80 Chronic schizophrenia F20.9 Enlarged prostate N40.0
[2020-12-27] MEDS: citalopram 20 mg Tablet 30 MG PO (13:10)
[2020-12-27] MEDS: cefTRIAXone 1,000 MG in sodium chloride 0.9% (plus) 50 ML 100 MG IV (16:07)
[2020-12-27] MEDS: ondansetron 2 mg/ML SDV 2 mL 4 MG IVP (16:07)
[2020-12-27] MEDS: enoxaparin 40 mg/0.4 mL Syringe SUBCUT (16:07)
[2020-12-27] MEDS: BuSPIRONE 10 mg Tablet 15 MG PO (20:06)
[2020-12-27] MEDS: divalproex DR 500 mg Tablet PO (22:36)
[2020-12-27] MEDS: donepezil 5 MG Tablet 10 MG PO (22:36)
[2020-12-28] VITALS (8 sets, daily range): BP systolic 90–145; BP diastolic 60–79; PULSE 64–80; RESP 18–24; TEMP 36.6–37.4; O2SAT 91–98
[2020-12-28 05:53] LABS: Basophils % 0.2 %; Eosinophils # 0.1 10^3/uL (0.0-0.8); Eosinophils % 1.2 %; Hematocrit 35.2 % (42.0-52.0); Hemoglobin 11.3 g/dL (11.7-16.6); Lymphocytes # 0.6 10^3/uL (0.8-4.8); Mean Corpuscular HGB Conc 32.1 g/dL (30.0-36.0); Mean Corpuscular Hemoglobin 28.5 pg (28.0-34.0); Mean Corpuscular Volume 88.9 fL (80-94); Mean Platelet Volume 9.6 fL (7.4-10.4); Monocytes # 0.3 10^3/uL (0.2-0.9); Neutrophils # 7.32 10^3/uL (1.8-7.7); Neutrophils % 87.2 %; Nucleated Red Blood Cells % 0 %; Platelet Count 199 10^3/cmm (130-400); Red Blood Count 3.96 10^6/uL (4.1-5.3); Red Cell Distribution Width 14.5 % (12.1-15.1); White Blood Count 8.4 10^3/uL (4.0-10.0)
[2020-12-28 06:11] LABS: Alanine Aminotransferase 10 U/L (0-41); Albumin Level 2.6 g/dL (3.5-5.2); Alkaline Phosphatase 79 IU/L (40-130); Anion Gap 12.1 (5-19); Aspartate Amino Transferase 13 U/L (0-40); Blood Urea Nitrogen 13 mg/dL (6-20); Calcium 7.7 mg/dL (8.5-10.5); Carbon Dioxide 24 mmol/L (22-29); Chloride 100 mmol/L (98-107); Globulin 2.7 g/dL (1.3-4.6); Glomerular Filtration Rate 171.4 mL/min (90-130); Glucose 95 mg/dL (65-115); Osmolality Calculated 276 mOsm/kg (285-295); Potassium 3.1 mmol/L (3.5-5.1); Sodium 133 mmol/L (136-145); Total Bilirubin 0.7 mg/dL (0.15-1.2); Total Protein 5.3 g/dL (6.6-8.7)
[2020-12-28] MEDS: tamsulosin 0.4 mg Capsule PO (08:56)
[2020-12-28] MEDS: potassium chloride ER 20 mEq Tablet PO (08:56)
[2020-12-28] MEDS: memantine 5 mg tablet 15 MG PO (08:56)
[2020-12-28] MEDS: BuSPIRONE 10 mg Tablet 15 MG PO ×2 (08:56→17:29)
[2020-12-28] MEDS: divalproex DR 250 mg Tablet PO (09:03)
[2020-12-28] MEDS: lidocaine 1% 5 ML in potassium chloride premix 100 ML 50 ML IV (09:06)
--- NOTE | 2020-12-28 09:28 | PM.PN ---
Subjective Subjective: Interval history: is doing well,no acute event overnight. Has remained afebrile.WBC is trending down.Needed lynch to be placed as there was urinary retention. Vitals/I&O/Wt Last Vital Signs Temp 98.0 F 12/28/20 07:46 Pulse 67 12/28/20 08:15 Resp 18 12/28/20 07:46 BP 115/74 12/28/20 07:46 Pulse Ox 98 12/28/20 08:15 12/27/20 12/28/20 12/28/20 22:59 06:59 14:59 Intake Total 1050 / 1050 803.75 / 803.75 Output Total 1050 / 1050 Balance 1050 / 1050 -1050 / 0 803.75 / 803.75 Weight last 48 hrs Weight 86.183 kg Physical Exam HENMT: COMMON NORMALS: normocephalic and atraumatic HEAD & SCALP: normocephalic and atraumatic Chest: CHEST: Yes Symmetrical chest wall rise Resp: COMMON NORMALS: normal respiratory effort and clear to auscultation bilaterally EFFORT & INSPECTION: Yes symmetric chest movement AUSCULTATION: clear to auscultation bilaterally Cardio: COMMON NORMALS: regular rate, regular rhythm, S1 normal heart sound present, S2 normal heart sound present, No gallops present (Cardio), No murmurs present (Cardio), No rub (Cardio) and Peripheral pulses 2+ throughout RATE: regular rate RHYTHM: regular rhythm HEART SOUNDS: S1 normal heart sound present and S2 normal heart sound present PERIPHERAL PULSES: Peripheral pulses 2+ throughout GI: COMMON NORMALS: Normal to inspection, nondistended, normoactive bowel sounds present, Soft to palpation, non-tender, No hepatosplenomegaly present and no masses AUSCULTATION: Yes normoactive bowel sounds PALPATION: Yes Soft to palpation and Yes No hepatosplenomegaly present RECTAL EXAM: Yes deferred Extremity: COMMON NORMALS: no clubbing, cyanosis or edema and no pedal edema Urinary Catheter Management^: Coude: Cath Placed During This Visit: yes Reason for Continuing Indwelling Catheter: Acute Urinary Retention or Obstruction Urinary Catheter Date of Insertion: 12/27/20 Urinary Catheter Time of Insertion: 04:23 Data : 12/28/20 05:27 12/28/20 05:27 Micro: Microbiology 12/26/20 13:50 Urine Culture - Final Urine,Clean Catch 12/26/20 15:18 Blood Culture - Preliminary Blood NEGATIVE TO DATE 12/26/20 15:15 Blood Culture - Preliminary Blood NEGATIVE TO DATE A&P Assessment and plan (1) Sepsis: Sepsis; Leukocytosis, tachypenia,hypothermia,elevated lactate : Possible UTI Blood Culture:NTD Urine Culture:Negative Procal:0.42 Cef 1 gm q24 h daily Status: Acute (2) Acute dehydration: Status: Acute (3) Acute urinary retention: Possible causes, medications,enlarged Prostrate Currently has indwelling lynch. Flomax 0.4 mg po daily Possible Urology consult Status: Acute (4) Vomiting: Status: Acute Qualifiers: Nausea presence: unspecified Vomiting Intractability: unspecified Vomiting type: unspecified Qualified Code(s): R11.10 - Vomiting, unspecified (5) Hematuria: Follow Repeat urine analysis.No renal calculi Possibly due to UTI Status: Acute (6) Fall: Status: Acute Qualifiers: Encounter type: initial encounter Qualified Code(s): W19.XXXA - Unspecified fall, initial encounter (7) Chronic hypokalemia: Status: Acute (8) Dementia in other diseases classified elsewhere without behavioral disturbance: Status: Acute (9) Chronic schizophrenia: Status: Acute (10) Enlarged prostate: Urology follow up Status: Acute Attestations Medical Necessity Statement*: Patient needs to be in hospital for the management of sepsis, dehydration,acute urinary retention. Coding Level of Care Code Acute Biologics Specialist for [facility] Diagnoses Sepsis A41.9 Acute dehydration E86.0 Acute urinary retention R33.8 Vomiting R11.10 Nausea presence: unspecified Vomiting Intractability: unspecified Vomiting type: unspecified Hematuria R31.9 Fall W19.XXXA Encounter type: initial encounter Chronic hypokalemia E87.6 Dementia in other diseases classified elsewhere without behavioral disturbance F02.80 Chronic schizophrenia F20.9 Enlarged prostate N40.0
[2020-12-28] MEDS: citalopram 20 mg Tablet 30 MG PO (13:03)
[2020-12-28] MEDS: cefTRIAXone 1,000 MG in sodium chloride 0.9% (plus) 50 ML 100 MG IV (15:10)
[2020-12-28] MEDS: enoxaparin 40 mg/0.4 mL Syringe SUBCUT (15:11)
[2020-12-28] MEDS: divalproex DR 500 mg Tablet PO (20:41)
[2020-12-28] MEDS: donepezil 5 MG Tablet 10 MG PO (20:41)
[2020-12-28] MEDS: sodium chlor 0.9% + KCl 20 mEq 20 MEQ/1,000 ML BAG 75 MEQ IV (23:24)
[2020-12-29] VITALS: BP 122/90; PULSE 76; RESP 18; TEMP 37.3; O2SAT 93
[2020-12-29 04:00] VITALS: BP 109/70; PULSE 68; RESP 16; TEMP 36.6; O2SAT 92
[2020-12-29 05:12] LABS: Basophils % 0.4 %; Eosinophils # 0.1 10^3/uL (0.0-0.8); Eosinophils % 2.6 %; Hematocrit 34.2 % (42.0-52.0); Hemoglobin 11.1 g/dL (11.7-16.6); Lymphocytes # 0.8 10^3/uL (0.8-4.8); Lymphocytes % 16.1 %; Mean Corpuscular HGB Conc 32.5 g/dL (30.0-36.0); Mean Corpuscular Hemoglobin 28.8 pg (28.0-34.0); Mean Corpuscular Volume 88.6 fL (80-94); Mean Platelet Volume 9.2 fL (7.4-10.4); Monocytes # 0.2 10^3/uL (0.2-0.9); Monocytes % 4.7 %; Neutrophils # 3.72 10^3/uL (1.8-7.7); Neutrophils % 75.8 %; Nucleated Red Blood Cells % 0 %; Platelet Count 168 10^3/cmm (130-400); Red Blood Count 3.86 10^6/uL (4.1-5.3); Red Cell Distribution Width 14.2 % (12.1-15.1); White Blood Count 4.9 10^3/uL (4.0-10.0)
[2020-12-29 05:34] LABS: Alanine Aminotransferase 12 U/L (0-41); Albumin Level 2.5 g/dL (3.5-5.2); Alkaline Phosphatase 77 IU/L (40-130); Anion Gap 11.5 (5-19); Aspartate Amino Transferase 17 U/L (0-40); Blood Urea Nitrogen 10 mg/dL (6-20); Calcium 7.5 mg/dL (8.5-10.5); Carbon Dioxide 26 mmol/L (22-29); Chloride 101 mmol/L (98-107); Globulin 2.4 g/dL (1.3-4.6); Glomerular Filtration Rate 221.7 mL/min (90-130); Glucose 88 mg/dL (65-115); Osmolality Calculated 278 mOsm/kg (285-295); Potassium 3.5 mmol/L (3.5-5.1); Sodium 135 mmol/L (136-145); Total Bilirubin 0.5 mg/dL (0.15-1.2); Total Protein 4.9 g/dL (6.6-8.7)
[2020-12-29 07:21] VITALS: BP 145/75; PULSE 77; RESP 19; TEMP 37; O2SAT 97
[2020-12-29] MEDS: divalproex DR 250 mg Tablet PO (08:42)
[2020-12-29] MEDS: potassium chloride ER 20 mEq Tablet PO (08:43)
[2020-12-29] MEDS: tamsulosin 0.4 mg Capsule PO (08:43)
[2020-12-29] MEDS: BuSPIRONE 10 mg Tablet 15 MG PO ×2 (08:43→17:15)
[2020-12-29] MEDS: memantine 5 mg tablet 15 MG PO (08:43)
--- NOTE | 2020-12-29 10:54 | PC.NURSE ---
PT PREVIOUSLY UP IN [facility] AMBULATING WITH PT AT SIDE AND WALKER WELL - DEB WELL
[2020-12-29 11:05] VITALS: BP 110/75; PULSE 89; RESP 18; TEMP 37.2; O2SAT 98
--- NOTE | 2020-12-29 11:31 | PC.SOCIAL ---
IMM Update Pg.2 of IMM updated and reviewed with patient, who verbalized understanding. Copy provided.
[2020-12-29] MEDS: citalopram 20 mg Tablet 30 MG PO (11:49)
[2020-12-29] MEDS: cefTRIAXone 1,000 MG in sodium chloride 0.9% (plus) 50 ML 100 MG IV (14:27)
[2020-12-29] MEDS: enoxaparin 40 mg/0.4 mL Syringe SUBCUT (14:29)
--- NOTE | 2020-12-29 14:36 | P.PN_ITS ---
Subjective Subjective: Interval history: is doing well,no acute event overnight.Currently tolerating diet well,has good urine output, remained afebrile. Medications: Reviewed: Yes Vitals/I&O/Wt Last Vital Signs Temp 99.0 F 12/29/20 11:05 Pulse 89 12/29/20 11:05 Resp 18 12/29/20 11:05 BP 110/75 12/29/20 11:05 Pulse Ox 98 12/29/20 11:05 12/28/20 12/29/20 12/29/20 22:59 06:59 14:59 Intake Total 246.25 / 1515.00 1200 / 1200 Output Total 1040 / 1040 0 / 1040 2100 / 2100 Balance -793.75 / 475.00 0 / 475.00 -900 / -900 Physical Exam Const: COMMON NORMALS: patient oriented x3 HENMT: COMMON NORMALS: normocephalic and atraumatic HEAD & SCALP: normocephalic and atraumatic Chest: CHEST: Yes Symmetrical chest wall rise Resp: COMMON NORMALS: normal respiratory effort and clear to auscultation bilaterally EFFORT & INSPECTION: Yes symmetric chest movement AUSCULTATION: clear to auscultation bilaterally Cardio: COMMON NORMALS: regular rate, regular rhythm, S1 normal heart sound present, S2 normal heart sound present, No gallops present (Cardio), No murmurs present (Cardio), No rub (Cardio) and Peripheral pulses 2+ throughout RATE: regular rate RHYTHM: regular rhythm HEART SOUNDS: S1 normal heart sound present and S2 normal heart sound present PERIPHERAL PULSES: Peripheral pulses 2+ throughout GI: COMMON NORMALS: Normal to inspection, nondistended, normoactive bowel sounds present, Soft to palpation, non-tender, No hepatosplenomegaly present and no masses AUSCULTATION: Yes normoactive bowel sounds PALPATION: Yes Soft to palpation and Yes No hepatosplenomegaly present RECTAL EXAM: Yes deferred Extremity: COMMON NORMALS: no clubbing, cyanosis or edema and no pedal edema Neuro: COMMON NORMALS: patient oriented x3 Urinary Catheter Management^: Coude: Cath Placed During This Visit: yes Reason for Continuing Indwelling Catheter: Acute Urinary Retention or Obstruction Urinary Catheter Date of Insertion: 12/27/20 Urinary Catheter Time of Insertion: 04:23 Data : 12/29/20 05:00 12/29/20 05:00 A&P Assessment and plan (1) Sepsis: Sepsis; Leukocytosis, tachypenia,hypothermia,elevated lactate : Possible UTI Blood Culture:NTD Urine Culture:Negative Procal:0.42 Cef 1 gm q24 h daily Status: Acute (2) Acute dehydration: Status: Acute (3) Acute urinary retention: Possible causes, medications,enlarged Prostrate Currently has indwelling lynch. Flomax 0.4 mg po daily Patient will be discharged with lynch catheter and he will follow urology as outpatient. Status: Acute (4) Vomiting: Resolved Status: Acute Qualifiers: Nausea presence: unspecified Vomiting Intractability: unspecified Vomiting type: unspecified Qualified Code(s): R11.10 - Vomiting, unspecified (5) Hematuria: Follow Repeat urine analysis.No renal calculi Possibly due to UTI Status: Acute (6) Fall: Status: Acute Qualifiers: Encounter type: initial encounter Qualified Code(s): W19.XXXA - Unspecified fall, initial encounter (7) Chronic hypokalemia: Status: Acute (8) Dementia in other diseases classified elsewhere without behavioral disturbance: Status: Acute (9) Chronic schizophrenia: Status: Acute (10) Enlarged prostate: Urology follow up Status: Acute Attestations Medical Necessity Statement*: Patient needs to be in hospital for the management of sepsis. Coding Level of Care Code Acute Decision Support Analyst for [facility] Diagnoses Sepsis A41.9 Acute dehydration E86.0 Acute urinary retention R33.8 Vomiting R11.10 Nausea presence: unspecified Vomiting Intractability: unspecified Vomiting type: unspecified Hematuria R31.9 Fall W19.XXXA Encounter type: initial encounter Chronic hypokalemia E87.6 Dementia in other diseases classified elsewhere without behavioral disturbance F02.80 Chronic schizophrenia F20.9 Enlarged prostate N40.0
[2020-12-29 15:31] VITALS: BP 108/58; PULSE 88; RESP 17; TEMP 36.4; O2SAT 90
[2020-12-29 19:43] VITALS: BP 92/66; PULSE 92; RESP 18; TEMP 37; O2SAT 91
[2020-12-29] MEDS: divalproex DR 500 mg Tablet PO (20:52)
[2020-12-29] MEDS: donepezil 5 MG Tablet 10 MG PO (20:52)
[2020-12-30] VITALS: BP 122/90; PULSE 76; RESP 18; TEMP 37.3; O2SAT 93
[2020-12-30 04:00] VITALS: BP 117/67; PULSE 81; RESP 18; TEMP 37.5; O2SAT 90
[2020-12-30 06:31] LABS: Basophils % 0.4 %; Eosinophils # 0.2 10^3/uL (0.0-0.8); Eosinophils % 2.9 %; Hematocrit 35.1 % (42.0-52.0); Hemoglobin 11.6 g/dL (11.7-16.6); Lymphocytes # 0.8 10^3/uL (0.8-4.8); Lymphocytes % 16.1 %; Mean Corpuscular Volume 87.8 fL (80-94); Mean Platelet Volume 8.9 fL (7.4-10.4); Monocytes # 0.4 10^3/uL (0.2-0.9); Monocytes % 7.3 %; Neutrophils # 3.79 10^3/uL (1.8-7.7); Neutrophils % 72.5 %; Nucleated Red Blood Cells % 0 %; Platelet Count 243 10^3/cmm (130-400); Red Cell Distribution Width 13.6 % (12.1-15.1); White Blood Count 5.2 10^3/uL (4.0-10.0)
[2020-12-30 06:49] LABS: Anion Gap 12.5 (5-19); Blood Urea Nitrogen 11 mg/dL (6-20); Calcium 7.6 mg/dL (8.5-10.5); Carbon Dioxide 26 mmol/L (22-29); Chloride 98 mmol/L (98-107); Glomerular Filtration Rate 221.7 mL/min (90-130); Glucose 84 mg/dL (65-115); Osmolality Calculated 275 mOsm/kg (285-295); Potassium 3.5 mmol/L (3.5-5.1); Sodium 133 mmol/L (136-145)
[2020-12-30 07:18] VITALS: BP 117/67; PULSE 81; RESP 18; TEMP 37.5; O2SAT 90
[2020-12-30] MEDS: divalproex DR 250 mg Tablet PO (08:51)
[2020-12-30] MEDS: tamsulosin 0.4 mg Capsule PO (08:51)
[2020-12-30] MEDS: potassium chloride ER 20 mEq Tablet PO (08:52)
[2020-12-30] MEDS: memantine 5 mg tablet 15 MG PO (08:53)
[2020-12-30] MEDS: BuSPIRONE 10 mg Tablet 15 MG PO (08:54)
[2020-12-30] MEDS: citalopram 20 mg Tablet 30 MG PO (11:16)
[2020-12-30 11:19] VITALS: BP 106/74; PULSE 79; RESP 18; TEMP 37; O2SAT 94
--- NOTE | 2020-12-30 11:20 | PC.NURSE ---
[facility] FAXED INFORMATION TO [facility] - PT BATHED/GROOMED PER MARGUERITE OLIVERA, OPTED TO REMAIN IN GOWN
--- NOTE | 2020-12-30 11:30 | P.DS_ITS ---
Discharge Providers Date of Admission: 12/26/20 14:39 Date of Discharge: December 30, 2020 Attending Provider at Admission: Rasheed Tse MD Attending Provider at Discharge: Rasheed Tse MD Primary Care Provider: Kira Jay Diagnoses at Discharge Discharge Diagnosis (1) Sepsis: Status: Resolved (2) Acute dehydration: Status: Resolved (3) Acute urinary retention: Status: Acute (4) Vomiting: Status: Acute Qualifiers: Nausea presence: unspecified Vomiting Intractability: unspecified Vomiting type: unspecified Qualified Code(s): R11.10 - Vomiting, unspecified (5) Fall: Status: Acute Qualifiers: Encounter type: initial encounter Qualified Code(s): W19.XXXA - Unspecified fall, initial encounter (6) Chronic hypokalemia: Status: Chronic (7) Dementia in other diseases classified elsewhere without behavioral disturbance: Status: Chronic (8) Chronic schizophrenia: Status: Chronic (9) Enlarged prostate: Status: Chronic Reason for Visit Reason for Visit: AMS Hospital Course Hospital Course 55 year old male WITH pmh of depression,schizophrenia, BPH, Lewy body dementia without behavioral disturbance was brought in by the EMS after her sister went to go check on him and she found him on the floor and he had some dried vomit around his mouth.He was admitted for the management of sepsis likely 2/2 UTI as well as for Ac urinary retention and dehydration.For his sepsis he was kept on ceftriaxone and was discharged on levofloxacin for additional 3 days.Cultures were negative. C.T head without contrast on admission was negative for any acute intra cranial pathology. Recent C.T abdomen and pelvis which was Marked prostate gland enlargement ( Markedly enlarged prostate gland is heterogeneous. Prostate measures 5.1 x 4.7 x 5.7 cm ) which could be the possible cause of Ac urinary retention, lynch catheter was placed during the hospital stay and he was discharged on lynch catheter. He has follow up appointment with on Monday, he was also started on tamsulosin during this hospital stay.Hematuria present on urine analysis is likely 2/2 to UTI as well due to prostatic enlargement resulting in obstructed flow.He will follow urology as outpatient. Patient responded well to the above medical management and is being discharged in stable condition. Physical Exam Const: COMMON NORMALS: patient oriented x3 HENMT: COMMON NORMALS: normocephalic and atraumatic HEAD & SCALP: normocephalic and atraumatic Chest: CHEST: Yes Symmetrical chest wall rise Resp: COMMON NORMALS: normal respiratory effort and clear to auscultation bilaterally EFFORT & INSPECTION: Yes symmetric chest movement AUSCULTATION: clear to auscultation bilaterally Cardio: COMMON NORMALS: regular rate, regular rhythm, S1 normal heart sound present, S2 normal heart sound present, No gallops present (Cardio), No murmurs present (Cardio), No rub (Cardio) and Peripheral pulses 2+ throughout RATE: regular rate RHYTHM: regular rhythm HEART SOUNDS: S1 normal heart sound present and S2 normal heart sound present PERIPHERAL PULSES: Peripheral pulses 2+ throughout GI: COMMON NORMALS: Normal to inspection, nondistended, normoactive bowel sounds present, Soft to palpation, non-tender, No hepatosplenomegaly present and no masses AUSCULTATION: Yes normoactive bowel sounds PALPATION: Yes Soft to palpation and Yes No hepatosplenomegaly present RECTAL EXAM: Yes deferred Extremity: COMMON NORMALS: no clubbing, cyanosis or edema and no pedal edema Neuro: COMMON NORMALS: patient oriented x3 Urinary Catheter Management^: Coude: Cath Placed During This Visit: yes Reason for Continuing Indwelling Catheter: Acute Urinary Retention or Obstruction Urinary Catheter Date of Insertion: 12/27/20 Urinary Catheter Time of Insertion: 04:23 Discharge Data Data Completed and Pending: Completed Studies During Hospitalization Category Date Time Status CT head wo con* 7 0450 Stat Cat Scan 12/26/20 10:21 Completed XR chest 1V melba ble [id number] Stat Exams 12/26/20 10:22 Completed Pending at discharge Category Date Time Status Blood Culture Rou maren Lab 12/26/20 15:18 Results Urine Culture Sta t Lab 12/26/20 14:36 Ordered Labs from last 24 hours 12/30/20 12/30/20 06:12 06:12 WBC 5.2 RBC 4.00 L Hgb 11.6 L Hct 35.1 L MCV 87.8 MCH 29.0 MCHC 33.0 RDW 13.6 Plt Count 243 MPV 8.9 Neut % (Auto) 72.5 Lymph % (Auto) 16.1 Treasure % (Auto) 7.3 Eos % (Auto) 2.9 Baso % (Auto) 0.4 Neut # (Auto) 3.79 Lymph # (Auto) 0.8 Treasure # (Auto) 0.4 Eos # (Auto) 0.2 Baso # (Auto) 0.0 Nucleated RBC % (a uto) 0 Nucleated RBCs # 0.0 Sodium 133 L Potassium 3.5 Chloride 98 Carbon Dioxide 26 Anion Gap 12.5 BUN 11 Creatinine 0.4 L GFR Calculation 221.7 H Glucose 84 Calculated Osmolal ity 275 L Calcium 7.6 L Vitals: Last Vital Signs Temp 98.6 F 12/30/20 11:19 Pulse 79 12/30/20 11:19 Resp 18 12/30/20 11:19 BP 106/74 12/30/20 11:19 Pulse Ox 94 12/30/20 11:19 Discharge Plan Discharge Patient Disposition: Home Condition: Stable Prescriptions: New tamsulosin 0.4 mg Capsule 0.4 mg PO DAILY 30 Days RF: 3 levofloxacin 500 mg tablet 500 mg PO DAILY 3 Days RF: 0 Continued magnesium oxide 250 mg magnesium tablet 250 mg PO DAILY@1500 RF: 0 hydroxyzine HCl 25 mg tablet 25 mg PO BID PRN (Reason: anxiety) Qty: 60 RF: 2 Ensure Active High Protein Liquid 1 ea PO TID Qty: 414 RF: 12 divalproex [Depakote] 250 mg tablet,delayed release (DR/EC) 250 mg PO DAILY@08 RF: 0 donepezil [Aricept] 10 mg tablet 10 mg PO BEDTIME@2100 RF: 0 divalproex [Depakote] 500 mg tablet,delayed release (DR/EC) 500 mg PO BEDTIME@2100 RF: 0 citalopram [Celexa] 20 mg tablet 30 mg PO DAILY@1200 RF: 0 buspirone 15 mg tablet 15 mg PO BID@12,15 RF: 0 memantine [Namenda] 10 mg tablet 10 mg PO DAILY@0800 RF: 0 memantine [Namenda] 5 mg tablet 5 mg PO DAILY@0800 RF: 0 promethazine 25 mg tablet 25 mg PO QID PRN (Reason: nausea and vomiting) Qty: 30 RF: 0 potassium chloride 20 mEq tablet extended release 20 meq PO DAILY@0800 RF: 0 Discharge Orders: Discharge Order (Routine); Ordered 12/30/20 Ordered By: Rasheed Tse Other Ambulatory Orders: DME: Walker (Order) Location: None Selected Ordered By: Rasheed Tse Referrals: [facility] [Outside] ([facility] cannot start services until after your appointment with Dr. Canchola. ) Xu Goldberg MD [Physician] - 01/01/21 9:30 am Elizabeth Canchola MD [Physician] - 01/04/21 10:30 am (You have an appointment [facility] with Dr. Canchola. [facility] cannot start services until you establish primary care. [facility] has you scheduled on Monday, after your appointment. ) Discharge Diet: Regular Discharge Activity: Resume usual activity Patient Instructions: Levofloxacin (By mouth), Tamsulosin (By mouth), Lynch Catheter Placement and Care (GEN) Discharge Attestations Time Spent in Discharge Care*: less than 30 min Specific Discharge Activities: educating patient, educating and/or supporting family/caregiver, discussing with pcp/other providers, discussing with assistant case manager/social workers/dc planners, documenting/other paperwork and evaluating patient/reviewing data Status at Discharge: Cognitive status at discharge: cognitively intact , Behavioral status at discharge: cooperative , Functional status at discharge: independent ambulation Overall status at discharge: patient is back to [facility] Quality Metrics Clinical Quality Measures During this hospital stay, did patient experience: None Coding Level of Care Code Acute Chg FW DC note Diagnoses Sepsis A41.9 Acute dehydration E86.0 Acute urinary retention R33.8 Vomiting R11.10 Nausea presence: unspecified Vomiting Intractability: unspecified Vomiting type: unspecified Fall W19.XXXA Encounter type: initial encounter Chronic hypokalemia E87.6 Dementia in other diseases classified elsewhere without behavioral disturbance F02.80 Chronic schizophrenia F20.9 Enlarged prostate N40.0
--- NOTE | 2020-12-30 14:38 | PC.NURSE ---
DISCHARGE NOTE DISCHARGE EDUCATION GIVEN AT LENGTH PER THIS NURSE - OLIVARES CARE WELL EMPTYING AND RECORDING URINE TAUGHT PER THIS NURSE - SISTER VERBALIZES UNDERSTANDING - HARD SCRIPT GIVEN FOR LEVAQUIN TO SISTER - FLOMAX SCRIPT E SENT - SISTER AWARE
[2020-12-30 14:47] VITALS: BP 106/74; PULSE 79; RESP 18; TEMP 37; O2SAT 94
== END 2020-12-30 14:48 | disposition home or self-care (01) | DRG 872 ==
LOC: ER 14:37 → MEDSURG 15:34
PROVIDERS: Admitting Provider Internal Medicine; Emergency Provider Emergency Medicine; PCP Nurse Practitioner Family; Visit Provider Internal Medicine
DX: A41.9 Sepsis, unspecified organism (principal); N39.0 Urinary tract infection, site not specified; T68.XXXA Hypothermia, initial encounter; F20.9 Schizophrenia, unspecified; F32.9 Major depressive disorder, single episode, unspecified; G31.83 Neurocognitive disorder with Lewy bodies; F02.80 Dementia in other diseases classified elsewhere, unspecified severity, without behavioral disturbance, psychotic disturbance, mood disturbance, and anxiety; N40.1 Benign prostatic hyperplasia with lower urinary tract symptoms; R33.8 Other retention of urine; R97.20 Elevated prostate specific antigen [PSA]; Z77.22 Contact with and (suspected) exposure to environmental tobacco smoke (acute) (chronic); E86.0 Dehydration; R31.9 Hematuria, unspecified; W19.XXXA Unspecified fall, initial encounter; E87.6 Hypokalemia
CPT/HCPCS: 36415; 51701; 51702; 70450; 71045; 80048; 80053; 80164; 80306; 80307; 81001; 82550; 83605; 83690; 84145; 85025; 87040; 87086; 93005; 96365; 96366; 96372; 96375; 97116; 97161; 97530; 99285; J0360; J0696; J1650; J2310; J2405; J3480; J7030

== ENCOUNTER → 2021-01-21 09:48 | Outpatient (BNVA) | payer MEDICARE, MEDICAID, SELFPAY ==
[2020-12-09 08:18] VITALS: BP 141/87; BMI 30.5
== END ==
PROVIDERS: PCP Family Medicine; Referring Provider Surgery; Visit Provider Surgery
DX: Z20.822 Contact with and (suspected) exposure to COVID-19 (principal); R63.4 Abnormal weight loss
CPT/HCPCS: 87635

== ENCOUNTER 2021-01-26 07:19 | Day surgery (SDC) | payer MEDICARE, MEDICAID, SELFPAY ==
[2020-12-09 08:18] VITALS: BP 141/87; BMI 30.5
[2021-01-22 14:19] VITALS: BMI 22.8
--- NOTE | 2021-01-26 07:47 | ANES.PREANE2 ---
Pre-Anesthetic Assessment Pre-Anesthetic Assessment: Height/Weight: Height 1.75 m Weight 70.307 kg Preop Diagnosis: panendoscopy Proposed Procedure: Operation Date: 01/26/21 08:45 Proposed Procedures p EGD/Colon 19652 43992 R63.4(Not Applicable) - Speedy Jain MD s Colonoscopy(Not Applicable) - Speedy Jain MD Was Beta Leslee taken within 24 hours: N/A Was Clonidine taken within 24 hours: N/A Social: Social History: No alcohol and No tobacco Exam: Pre-Anes Outpt Exam: alert, oriented x 3, clear to auscultation bilaterally and regular rate & rhythm Airway: Submandibular: WNL Cervical ROM: WNL MP: 2 Dentition: False CV/HEM: Comments: h/o VSD repair (as child), reported Ao aneurysm : Comments: Indwelling catheter Musc/skel: Musc/skel: Weakness Neuropsych: Neuropsych: Dementia Comments: Schizoaffective Anesthetic Plan: ASA status: 3 Anesthesia: MAC Risk of > 500 ml blood loss (7ml/kg in children): No PFSH Anesthesia PFSH: Medical History Acute dehydration Acute urinary retention Chronic hypokalemia Chronic schizophrenia Dementia in other diseases classified elsewhere without behavioral disturbance Surgical History S/P VSD repair Family History Other CAD (coronary artery disease) Cancer Diabetes Hypertension Psychiatric illness Stroke Social History Smoking and tobacco status: never smoked Second hand smoke exposure: Yes Alcohol intake: never Adopted: No Caregiver/support person: Yes Lives independently: No Household members: family Marital status: Single Number of children: 0 Number of grandchildren: 0 Highest education level completed: 10th Grade service: No Current occupational status: disabled Current occupational exposures/hazards: No Pets and animals: Yes Pets & animals: cat(s) and dog(s) History of recent travel: No Leisure activites: other Leisure activities details: watch tv, bowling and PSR Sexually active: No Current gender identity: Male Monika/Baptism: None Special monika needs: No Agree to transfusion: Yes Financial difficulty paying for basics: Not Very Hard Data Anesthesia Cardiac Studies: No Data to Display
[2021-01-26 08:07] VITALS: BP 143/73; PULSE 75; RESP 18; TEMP 36; O2SAT 97
[2021-01-26] MEDS: sodium chloride 0.9% 1,000 ML 30 ML IV (08:21)
--- NOTE | 2021-01-26 08:45 | W.PM.OPSUD ---
Surgery/Procedure H&P Update DATE OF PROCEDURE: January 26, 2021 DATE H&P PERFORMED: 01/08/21 H&P UPDATE INFORMATION: I have reviewed H&P completed within last 30 days, I have examined patient prior to procedure and No changes to prior documentation PREOP DIAGNOSIS: panendoscopy PLANNED PROCEDURE: Operation Date: 01/26/21 08:45 Proposed Procedures p EGD/Colon [id number] R63.4(Not Applicable) - Speedy Jain MD s Colonoscopy(Not Applicable) - Speedy Jain MD
[2021-01-26 09:40] VITALS: BP 118/70; PULSE 69; RESP 16; TEMP 36.1; O2SAT 94
[2021-01-26 09:59] VITALS: BP 127/93; PULSE 62; RESP 18; O2SAT 100
--- NOTE | 2021-01-26 12:40 | ANE.PACU2 ---
Inpatient post-anesthesia follow up: Airway intact: Yes Vital signs: Temperature 97 F Pulse Rate 62 Respiratory Rate 18 Blood Pressure 127/93 Pulse Oximetry 100 Oxygen Delivery Me thod Room Air Oxygen Flow Rate Fraction of Inspir ed Oxygen Hydration adequate: Yes Nausea and vomiting: No Pain level: 1 Mental status: Baseline
== END 2021-01-26 10:12 | disposition home or self-care (01) ==
PROVIDERS: PCP Family Medicine; Visit Provider Surgery
PROC: 0DJ08ZZ Inspection of Upper Intestinal Tract, Via Natural or Artificial Opening Endoscopic (ICD-10-PCS; CPT 43235; principal; 2021-01-26 08:45)
PROC: 0DJD8ZZ Inspection of Lower Intestinal Tract, Via Natural or Artificial Opening Endoscopic (ICD-10-PCS; CPT 45378; 2021-01-26 08:45)
DX: R63.4 Abnormal weight loss (principal); D12.5 Benign neoplasm of sigmoid colon; D12.3 Benign neoplasm of transverse colon; K57.30 Diverticulosis of large intestine without perforation or abscess without bleeding; F03.90 Unspecified dementia, unspecified severity, without behavioral disturbance, psychotic disturbance, mood disturbance, and anxiety
CPT/HCPCS: 43235; 45385; 88305; 96360; 96361; J2704; J3490; J7030

== ENCOUNTER 2021-03-02 09:53 | Outpatient (CLI) | payer MEDICARE, MEDICAID, SELFPAY ==
[2020-12-09 08:18] VITALS: BP 141/87; BMI 30.5
--- NOTE | 2021-03-02 10:15 | USCV_ITS ---
Bryant Martin Age: 56 Gender: M : 1965 Exam Date: 03/02/2021 10:04 Ordering Phys: Harleen Nielsen MD ([email or web address]) Technologist: Marjorie Miller Exam Location: [facility] [place] Indication: THORACIC AORTIC ECTSIA BP: / HR: 89 Rhythm: Sinus Technical Quality: Adequate MEASUREMENTS (Male / Female) Normal Values 2D ECHO LV Diastolic Diameter PLAX 3.3 cm 4.2 - 5.9 / 3.9 - 5.3 cm LV Systolic Diameter PLAX 2.3 cm LV Chamber Size 3.0 cm IVS Diastolic Thickness 1.2 cm 0.6 - 1.0 / 0.6 - 0.9 cm IVS Systolic Thickness 1.6 cm LVPW Diastolic Thickness 1.4 cm 0.6 - 1.0 / 0.6 - 0.9 cm LVPW Systolic Thickness 1.7 cm RV Chamber Size 4.5 cm LVOT Diameter 2.1 cm LV Ejection Fraction 2D Teich 60.1 % LV Ejection Fraction MOD 2C 50.7 % LV Ejection Fraction 2C AL 50.9 % LA Diameter 3.0 cm LA Width 2.5 cm LA Height 3.7 cm RA Width 4.4 cm RA Height 4.7 cm Aorta at Sinotubular Diameter 4.3 cm M-MODE LV Diastolic Diameter MM 4.4 cm 4.2 - 5.9 / 3.9 - 5.3 cm LV Systolic Diameter MM 3.3 cm LV Ejection Fraction MM Teich 49.9 % IVS Diastolic Thickness MM 1.2 cm 0.6 - 1.0 / 0.6 - 0.9 cm IVS Systolic Thickness MM 1.3 cm LVPW Diastolic Thickness MM 0.9 cm 0.6 - 1.0 / 0.6 - 0.9 cm LVPW Systolic Thickness MM 1.3 cm RV Diastolic Diameter MM 2.3 cm Aortic Annulus Diameter 2.7 cm LA Ao Ratio MM 1.1 MV E Point Septal Separation 0.5 cm DOPPLER AV Peak Velocity 90.0 cm/s LVOT Peak Velocity 94.0 cm/s AV Area Cont Eq vti 2.7 cm squared AV Area Cont Eq pk 3.6 cm squared MV Area PHT 12.9 cm squared Mitral E to A Ratio 0.9 MV E' Velocity 40.0 cm/s Mitral E to MV E' Ratio 5.5 Mitral E to LV E' Lateral Ratio 5.1 Mitral E to LV E' Septal Ratio 6.1 TR Peak Velocity 213.5 cm/s TR Peak Gradient 18.2 mmHg TR Mean Velocity 152.9 cm/s TR Mean Gradient 10.5 mmHg TR Velocity Time Integral 52.2 cm TV Peak E Velocity 60.0 cm/s FINDINGS Left Ventricle Normal left ventricular cavity size. Midly increased left ventricular wall thickness. Normal left ventricular systolic function. Left ventricular ejection fraction is estimated at 55- 60 %. No regional wall motion abnormalities. Grade I diastolic dysfunction (abnormal relaxation filling pattern), normal to mildly elevated filling pressures. Abnormal septal motion. Right Ventricle Right ventricle not well visualized. Probably normal right ventricular systolic function. Right ventricular systolic pressure 21 mmHg. Right Atrium Mildly increased right atrial size. Right atrial pressure estimated at 3 mm Hg. Left Atrium Normal left atrial size. Mitral Valve Structurally normal mitral valve. No mitral valve stenosis. No mitral valve regurgitation. Aortic Valve Structurally normal trileaflet aortic valve. No aortic valve stenosis. Mild markedly eccentric aortic valve regurgitation directed to septal wall. Tricuspid Valve Tricuspid valve not well visualized. Trace tricuspid valve regurgitation. Pulmonic Valve Structurally normal pulmonic valve. Mild to moderate pulmonary valve regurgitation. Pericardium No pericardial effusion. Aorta Dilated aortic root at sinus of valsalva measured at 46 mm. Ascending aorta measured at 38 mm and aortic arch measured at 36 mm. Normal sized inferior vena cava. CONCLUSIONS 1. Normal left ventricular cavity size and systolic function. Midly increased left ventricular wall thickness. Left ventricular ejection fraction is estimated at 55-60 %. No regional wall motion abnormalities. Grade I diastolic dysfunction (abnormal relaxation filling pattern), normal to mildly elevated filling pressures. 2. Probably normal right ventricular systolic function. 3. Pulmonary artery pressure measured at 21 mmHg. 4. Mild markedly eccentric aortic valve regurgitation directed to septal wall. 5. Mild to moderate pulmonary valve regurgitation. 6. Dilated aortic root at sinus of valsalva measured at 46 mm. Ascending aorta measured at 38 mm and aortic arch measured at 36 mm. 7. When compared to previous echocardiogram dated 02/06/2019, aortic root size seems to have increased slightly. Harleen Nielsen MD (Electronically Signed) Final Date: 07 March 2021 10:58 S
== END 2021-03-02 09:54 | disposition home or self-care (01) ==
LOC: RAD 09:55
PROVIDERS: PCP Family Medicine; Visit Provider Internal Medicine Cardiovascular Disease
DX: I77.810 Thoracic aortic ectasia (principal); I35.1 Nonrheumatic aortic (valve) insufficiency; I37.1 Nonrheumatic pulmonary valve insufficiency
CPT/HCPCS: 93306

== ENCOUNTER → 2021-05-12 13:23 | Outpatient (BNVA) | payer OTHER, SELFPAY ==
[2020-12-09 08:18] VITALS: BP 141/87; BMI 30.5
== END ==
PROVIDERS: PCP Family Medicine; Visit Provider Registered Nurse
DX: F20.89 Other schizophrenia (principal)
CPT/HCPCS: 80061; 83036

== ENCOUNTER → 2021-05-20 10:31 | Outpatient (BNVA) | payer MEDICARE, MEDICAID, SELFPAY ==
[2021-05-13 12:01] VITALS: BP 129/83; BMI 25.1
== END ==
PROVIDERS: PCP Family Medicine; Visit Provider Urology
DX: R33.9 Retention of urine, unspecified (principal)
CPT/HCPCS: 81003

== ENCOUNTER → 2021-11-16 10:38 | Outpatient (BNVA) | payer MEDICARE, MEDICAID, SELFPAY ==
[2021-05-13 12:01] VITALS: BP 129/83; BMI 25.1
== END ==
PROVIDERS: PCP Family Medicine; Visit Provider Urology
DX: N40.1 Benign prostatic hyperplasia with lower urinary tract symptoms (principal); N13.8 Other obstructive and reflux uropathy; R97.20 Elevated prostate specific antigen [PSA]
CPT/HCPCS: 81003

== ENCOUNTER → 2022-04-20 09:46 | Outpatient (BNVA) | payer MEDICARE, MEDICAID, SELFPAY ==
[2022-04-05 08:23] VITALS: BP 129/83; BMI 25.1
== END ==
PROVIDERS: PCP Family Medicine; Visit Provider Registered Nurse
DX: Z79.899 Other long term (current) drug therapy (principal); I50.32 Chronic diastolic (congestive) heart failure
CPT/HCPCS: 80053; 80061; 80164; 82306; 82607

== ENCOUNTER 2022-05-24 09:28 | Emergency (ER) | payer MEDICARE, MEDICAID, SELFPAY ==
[2022-04-05 08:23] VITALS: BP 129/83; BMI 25.1
[2022-05-24 09:40] VITALS: BP 142/92; PULSE 73; RESP 18; TEMP 36.8; O2SAT 99; BMI 26.3
--- NOTE | 2022-05-24 09:55 | W.ED.PSYCHS ---
HPI - Psych General: Chief Complaint: Psychiatric Symptoms Stated Complaint: Possible medication withdrawl Time Seen by Provider: 05/24/22 09:32 Source: patient Mode of arrival: ambulatory Limitations: other (demnetia) History of Present Illness: 57-year-old male who presents to the emergency room with his sister. He has some dementia he intermittently takes his medications and he will have episodes of behavioral issues where she describes them as spinning out of control. He will pull his hair get fidgety get very anxious. He does not make any suicidal homicidal ideations in the room he states he has go the bathroom he is waiting patiently does not really contribute much to history at all. Usually sees someone over at [facility] at the [place] office where he is on citalopram donepezil hydroxyzine BuSpar Depakote and memantine. He has not had any recent changes in medications but has not been taking his medications regularly. When he does take them regularly things tend to go much better, he does not have these episodes of spinning out of control . MD complaint: altered mental status Duration: intermittent History of same: Yes Relieving factors: none Exacerbating factors: none Context: other (Underlying dementia) Associated psychiatric symptoms: none Associated symptoms: Reports depression; Deny auditory hallucinations, visual hallucinations, delusions, homicidal ideation, suicidal ideation or racing thoughts Treatments prior to arrival: none Review of Systems Const: Denies: fever(s), chills, body aches, change in appetite, fatigue or malaise ENMT: Denies: throat pain, ear or mastoid pain, nasal discharge or nasal congestion Card: Denies: chest pain, edema, dyspnea on exertion or orthopnea Resp: Denies: dyspnea, productive cough or non-productive cough GI: Denies: abdominal pain, nausea, vomiting, hematemesis, coffee ground emesis, diarrhea, constipation, bloating, hematochezia or melena : Denies: flank pain, dysuria, urinary frequency or urinary urgency Skin/Breast: Denies: rash or pruritus Psych: Reports: depression; Denies: visual hallucinations, auditory hallucinations, suicidal ideation or homicidal ideation [facility] ED PFSH: Medical History Acute dehydration Acute urinary retention BPH w urinary obs/LUTS Chronic hypokalemia Chronic schizophrenia Decreased independence with activities of daily living Dementia in other diseases classified elsewhere without behavioral disturbance Generalized anxiety disorder Medication management Poor compliance with medication Psychiatric care Surgical History H/O esophagogastroduodenoscopy (01/26/21) S/P VSD repair Status post colonoscopy (01/26/21) Diverticulosis, transverse and sigmoid colon polyp Family History Other CAD (coronary artery disease) Cancer Dementia in other diseases classified elsewhere without behavioral disturbance Diabetes Hypertension Psychiatric illness Stroke Social History Smoking and tobacco status: never smoked Second hand smoke exposure: Yes Alcohol intake: never Adopted: No Caregiver/support person: Yes Lives independently: No Household members: none Housing: Apartment Marital status: Single Number of children: 0 Number of grandchildren: 0 Highest education level completed: 10th Grade service: No Current occupational status: disabled Current occupational exposures/hazards: No Pets and animals: Yes Pets & animals: cat(s) and dog(s) History of recent travel: No Leisure activites: other Leisure activities details: watch tv, bowling and PSR Sexually active: No Current gender identity: Male Monika/Christianity: None Special monika needs: No Agree to transfusion: Yes Financial difficulty paying for basics: Not Very Hard Physical Exam Const: GENERAL APPEARANCE: cooperative and comfortable ORIENTATION/CONSCIOUSNESS: Yes awake, Yes oriented to person, Yes oriented to place and Yes oriented to time HENMT: COMMON NORMALS: normocephalic, atraumatic and hearing grossly normal bilaterally HEAD & SCALP: normocephalic and atraumatic Resp: COMMON NORMALS: normal respiratory effort, No retractions, No use of accessory muscles and clear to auscultation bilaterally AUSCULTATION: clear to auscultation bilaterally Cardio: COMMON NORMALS: regular rate, regular rhythm and No murmurs present (Cardio) RATE: regular rate RHYTHM: regular rhythm GI: COMMON NORMALS: Soft to palpation and No hepatosplenomegaly present AUSCULTATION: Yes normoactive bowel sounds PALPATION: Yes Soft to palpation, No Tenderness to palpation present (GI), No Guarding due to palpation present (GI) and Yes No hepatosplenomegaly present Extremity: COMMON NORMALS: normal to inspection, capillary refill normal, no clubbing, cyanosis or edema, no calf tenderness and no pedal edema Neuro: SENSORIUM/ORIENTATION: Yes oriented to person, Yes oriented to place and Yes oriented to time Psych: THOUGHT CONTENT: No delusions Skin: COMMON NORMALS: no rashes or lesions noted GENERAL SKIN EXAM: no rashes or lesions noted Course Vital Signs: Vital signs: Vital Signs Temperature 98.2 F 05/24/22 09:40 Pulse Rate 73 05/24/22 09:40 Respiratory Rate 18 05/24/22 09:40 Blood Pressure 142/92 05/24/22 09:40 Pulse Oximetry 99 05/24/22 09:40 Oxygen Delivery Me thod 05/24/22 09:40 MDM - Psych Medical Decision Making Patient has dementia issues but is not acutely psychotic is not having any behavioral disturbances. At this point he does not present a danger to himself or others continue his current medication he is having some increased reflux symptoms add Protonix daily. Discussed with caregiver strongly encouraged to consider senior living level of care on the Medical Records I reviewed the patient's medical records. Lab Data I reviewed the patient's lab results. : 05/24/22 10:05 05/24/22 10:05 Laboratory Results WBC 7.3 10^3/uL (4.0-10.0) 05/24/22 10:05 RBC 5.62 10^6/uL (4.1-5.3) H 05/24/22 10:05 Hgb 15.8 g/dL (11.7-16.6) 05/24/22 10:05 Hct 47.7 % (42.0-52.0) 05/24/22 10:05 MCV 84.9 fl (80-94) 05/24/22 10:05 MCH 28.1 pg (28.0-34.0) 05/24/22 10:05 MCHC 33.1 g/dL (30.0-36.0) 05/24/22 10:05 RDW 13.0 % (12.1-15.1) 05/24/22 10:05 Plt Count 221 10^3/cmm (130-400) 05/24/22 10:05 MPV 9.5 fL (7.4-10.4) 05/24/22 10:05 Neut % (Auto) 69.5 % 05/24/22 10:05 Lymph % (Auto) 22.2 % 05/24/22 10:05 [place] % (Auto) 6.4 % 05/24/22 10:05 Eos % (Auto) 1.1 % 05/24/22 10:05 Baso % (Auto) 0.5 % 05/24/22 10:05 Neut # (Auto) 5.06 10^3/uL (1.8-7.7) 05/24/22 10:05 Lymph # (Auto) 1.6 10^3/uL (0.8-4.8) 05/24/22 10:05 [place] # (Auto) 0.5 10^3/uL (0.2-0.9) 05/24/22 10:05 Eos # (Auto) 0.1 10^3/uL (0.0-0.8) 05/24/22 10:05 Baso # (Auto) 0.0 10^3/uL (0.0-0.1) 05/24/22 10:05 Nucleated RBC % (auto) 0 % 05/24/22 10:05 Nucleated RBCs # 0.0 /100WBC 05/24/22 10:05 Sodium 141 mmol/L (136-145) 05/24/22 10:05 Potassium 3.9 mmol/L (3.5-5.1) 05/24/22 10:05 Chloride 103 mmol/L (98-107) 05/24/22 10:05 Carbon Dioxide 24 mmol/L (22-29) 05/24/22 10:05 Anion Gap 17.9 (5-19) 05/24/22 10:05 BUN 28 mg/dL (6-20) H 05/24/22 10:05 Creatinine 0.7 mg/dL (0.7-1.2) 05/24/22 10:05 GFR Calculation 115.4 mL/min (90-130) 05/24/22 10:05 Glucose 91 mg/dL (65-115) 05/24/22 10:05 Calculated Osmolality 297 mOsm/kg (285-295) H 05/24/22 10:05 Calcium 9.7 mg/dL (8.5-10.5) 05/24/22 10:05 Total Bilirubin 0.5 mg/dL (0.15-1.2) 05/24/22 10:05 AST 21 U/L (0-40) 05/24/22 10:05 ALT 18 U/L (0-41) 05/24/22 10:05 Alkaline Phosphatase 91 U/L (40-130) 05/24/22 10:05 Total Protein 8.1 g/dL (6.6-8.7) 05/24/22 10:05 Albumin 5.0 g/dL (3.5-5.2) 05/24/22 10:05 Globulin 3.1 g/dL (1.3-4.6) 05/24/22 10:05 Urine Color Yellow (Yellow) 05/24/22 09:58 Urine Appearance Clear (CLEAR) 05/24/22 09:58 Urine pH 7 (5-7) 05/24/22 09:58 Ur Specific [place] 1.000 (1.005-1.030) L 05/24/22 09:58 Urine Protein Neg (Negative) 05/24/22 09:58 Urine Glucose (UA) Norm (Normal) 05/24/22 09:58 Urine Ketones Negative (Negative) 05/24/22 09:58 Urine Blood Neg (Negative) 05/24/22 09:58 Urine Nitrate Negative (Negative) 05/24/22 09:58 Urine Bilirubin Neg (Negative) 05/24/22 09:58 Urine Urobilinogen Norm mg/dL (Negative) 05/24/22 09:58 Ur Leukocyte Esterase Negative (Negative) 05/24/22 09:58 Salicylates < 0.3 mg/dL (3-10) L 05/24/22 10:05 Acetaminophen < 5.0 ug/mL (10-30) L 05/24/22 10:05 Valproic Acid 35.0 ug/mL (50-100) L 05/24/22 10:05 Discharge Plan Discharge Patient Disposition: Home Clinical Impression: Dementia in other diseases classified elsewhere without behavioral disturbance, Cognitive dysfunction Condition: Stable Prescriptions: New Protonix 40 mg tablet,delayed release (DR/EC) 40 mg PO DAILY Qty: 30 0RF No Action Men's 50 Plus Multivitamin 400-20-370 mcg tablet 1 tab PO DAILY@08 Ensure Active High Protein Liquid 1 ea PO TID PRN (Reason: weight loss) Rx Instructions: strawberry flavored potassium gluconate 595 mg (99 mg) tablet 595 mg PO DAILY@15 magnesium oxide 250 mg magnesium tablet 250 mg PO DAILY@1500 divalproex [Depakote] 250 mg tablet,delayed release (DR/EC) 250 mg PO DAILY@08 Qty: 30 3RF hydroxyzine HCl 25 mg tablet See Rx Instructions PO .COMPLEX Qty: 90 3RF Rx Instructions: 50MG PO DAILY@08:00 AND 25MG PO DAILY @15:00 memantine [Namenda] 10 mg tablet 10 mg PO DAILY@0800 Qty: 30 3RF Rx Instructions: in addition to 5mg = 15mg memantine [Namenda] 5 mg tablet 5 mg PO DAILY@0800 Qty: 30 3RF Rx Instructions: in addition to 10mg = 15mg citalopram 40 mg tablet 40 mg PO DAILY@08 Aricept 10 mg tablet 10 mg PO DAILY@15 Depakote 500 mg tablet,delayed release (DR/EC) 500 mg PO DAILY@15 tamsulosin 0.4 mg capsule 0.4 mg PO BID@08,15 Risperdal 0.5 mg tablet 0.5 mg PO DAILY@15 buspirone 15 mg tablet 15 mg PO BID@08,15 Discharge Orders: Discharge ED (Routine); Ordered 05/24/22 Ordered By: Antonio Brady Referrals: Elizabeth Canchola MD [Primary Care Provider] - Discharge Diet: Usual diet Discharge Activity: Limit activity as instructed Patient Instructions: Opioid Safety Activity Restrictions/Additional Instructions: Follow-up with your primary care doctor to be evaluated for placement in memory impairment unit at senior living.. Coding Level of Care Code ED Therapist Physical for Carla Fwd Exam Comprehensive
[2022-05-24 10:05] LABS: Add Urine Microscopic? NO; Charge for UA Resulting for Rev
[2022-05-24 10:09] LABS: Bilirubin Urine Neg (Negative); Blood Urine Neg (Negative); Glucose Urine UA Norm (Normal); Ketones Urine Negative (Negative); Leukocyte Esterase Urine Negative (Negative); Nitrate Urine Negative (Negative); Protein Urine Neg (Negative); Urine Appearance Clear (CLEAR); Urine Color Yellow (Yellow); Urobilinogen Urine Norm (Negative); pH Urine 7 (5-7)
[2022-05-24 10:11] LABS: Basophils % 0.5 %; Eosinophils # 0.1 10^3/uL (0.0-0.8); Eosinophils % 1.1 %; Hematocrit 47.7 % (42.0-52.0); Hemoglobin 15.8 g/dL (11.7-16.6); Lymphocytes # 1.6 10^3/uL (0.8-4.8); Lymphocytes % 22.2 %; Mean Corpuscular HGB Conc 33.1 g/dL (30.0-36.0); Mean Corpuscular Hemoglobin 28.1 pg (28.0-34.0); Mean Corpuscular Volume 84.9 fl (80-94); Mean Platelet Volume 9.5 fL (7.4-10.4); Monocytes # 0.5 10^3/uL (0.2-0.9); Monocytes % 6.4 %; Neutrophils # 5.06 10^3/uL (1.8-7.7); Neutrophils % 69.5 %; Nucleated Red Blood Cells % 0 %; Platelet Count 221 10^3/cmm (130-400); Red Blood Count 5.62 10^6/uL (4.1-5.3); White Blood Count 7.3 10^3/uL (4.0-10.0)
[2022-05-24 10:26] LABS: Alanine Aminotransferase 18 U/L (0-41); Alkaline Phosphatase 91 U/L (40-130); Anion Gap 17.9 (5-19); Aspartate Amino Transferase 21 U/L (0-40); Blood Urea Nitrogen 28 mg/dL (6-20); Calcium 9.7 mg/dL (8.5-10.5); Carbon Dioxide 24 mmol/L (22-29); Chloride 103 mmol/L (98-107); Globulin 3.1 g/dL (1.3-4.6); Glomerular Filtration Rate 115.4 mL/min (90-130); Glucose 91 mg/dL (65-115); Osmolality Calculated 297 mOsm/kg (285-295); Potassium 3.9 mmol/L (3.5-5.1); Sodium 141 mmol/L (136-145); Total Bilirubin 0.5 mg/dL (0.15-1.2); Total Protein 8.1 g/dL (6.6-8.7)
[2022-05-24 10:31] LABS: Acetaminophen < 5.0 ug/mL (10-30); Salicylate < 0.3 mg/dL (3-10)
== END 2022-05-24 12:52 | disposition home or self-care (01) ==
PROVIDERS: Emergency Provider Family Medicine; PCP Family Medicine
DX: F03.90 Unspecified dementia, unspecified severity, without behavioral disturbance, psychotic disturbance, mood disturbance, and anxiety (principal); F09 Unspecified mental disorder due to known physiological condition; Z77.22 Contact with and (suspected) exposure to environmental tobacco smoke (acute) (chronic)
CPT/HCPCS: 36415; 80053; 80164; 80307; 81003; 85025; 99284

== ENCOUNTER → 2022-06-13 14:15 | Outpatient (BNVA) | payer OTHER, SELFPAY ==
[2022-04-05 08:23] VITALS: BP 129/83; BMI 25.1
== END ==
PROVIDERS: PCP Family Medicine; Visit Provider Registered Nurse
DX: F20.89 Other schizophrenia (principal); Z03.89 Encounter for observation for other suspected diseases and conditions ruled out; Z79.899 Other long term (current) drug therapy
CPT/HCPCS: 80061; 83036

== ENCOUNTER → 2022-10-21 09:46 | Outpatient (BNVA) | payer MEDICARE, MEDICAID, SELFPAY ==
[2022-06-16 15:59] VITALS: BP 133/78; BMI 24.0
== END ==
PROVIDERS: PCP Family Medicine; Visit Provider Internal Medicine Cardiovascular Disease
DX: I71.20 Thoracic aortic aneurysm, without rupture, unspecified (principal); Z87.74 Personal history of (corrected) congenital malformations of heart and circulatory system; F20.9 Schizophrenia, unspecified; R91.1 Solitary pulmonary nodule
CPT/HCPCS: 99214; Q3014

== ENCOUNTER 2022-11-22 11:56 | Outpatient (CLI) | payer MEDICARE, MEDICAID, SELFPAY ==
[2022-06-16 15:59] VITALS: BP 133/78; BMI 24.0
--- NOTE | 2022-11-22 12:00 | USCV_ITS ---
Bryant Martin Age: 57 Gender: M : 1965 Exam Date: 11/22/2022 12:15 Ordering Phys: Harleen Nielsen MD ([email or web address]) Technologist: [place]am [place] [facility] [place]: enlarged ao BP: 125 / 73 HR: 66 Rhythm: Sinus Technical Quality: Adequate MEASUREMENTS (Male / Female) Normal Values 2D ECHO LV Diastolic Diameter PLAX 4.1 cm 4.2 - 5.9 / 3.9 - 5.3 cm LV Systolic Diameter PLAX 3.4 cm IVS Diastolic Thickness 1.2 cm 0.6 - 1.0 / 0.6 - 0.9 cm IVS Systolic Thickness 1.4 cm LVPW Diastolic Thickness 1.3 cm 0.6 - 1.0 / 0.6 - 0.9 cm LVPW Systolic Thickness 1.4 cm LVOT Diameter 2.0 cm LV Ejection Fraction 2D Teich 28.3 % LV Ejection Fraction MOD 2C 69.8 % LV Ejection Fraction 2C AL 69.9 % LA Diameter 3.5 cm Aorta at Sinotubular Diameter 4.3 cm IVC Diameter 1.2 cm M-MODE Aortic Annulus Diameter 3.9 cm LA Ao Ratio MM 1.0 MV E Point Septal Separation 0.7 cm DOPPLER AV Peak Velocity 126.0 cm/s LVOT Peak Velocity 77.0 cm/s AV Area Cont Eq vti 2.3 cm squared AV Area Cont Eq pk 2.0 cm squared MV Area PHT 5.0 cm squared Mitral E to A Ratio 0.9 MV E' Velocity 34.0 cm/s Mitral E to MV E' Ratio 4.5 Mitral E to LV E' Lateral Ratio 4.2 Mitral E to LV E' Septal Ratio 4.9 TR Peak Velocity 269.7 cm/s TR Peak Gradient 29.1 mmHg TV Peak E Velocity 121.0 cm/s Right Atrial Pressure 3.0 mmHg Pulmonary Artery Systolic Pressu 32.1 mmHg FINDINGS Left Ventricle Normal left ventricular size and systolic function, EF 67 %. No regional wall motion abnormalities. Right Ventricle Mildly dilated with a normal ejection fraction Right Atrium Mildly dilated Left Atrium Normal left atrial size. Mitral Valve Trace mitral valve regurgitation. Aortic Valve Mild aortic valve regurgitation. Tricuspid Valve Mild tricuspid valve regurgitation. Estimated pulmonary artery peak systolic pressure 32 mmHg Pulmonic Valve Mild pulmonary valve regurgitation. Pericardium No pericardial effusion. Aorta Aortic root, measured 4.5 centimeter at the level of the sinuses and 4.3 cm at the sinotubular junction IVC Normal inferior vena cava. CONCLUSIONS 1. Dilated aortic root measuring 4.5 cm at the level of the sinuses and 4.3 cm at the level of the sinotubular junction. 2. Normal LV size ejection fraction of 67%. No gross wall motion abnormalities. 3. Mild aortic regurgitation. 4. Mild tricuspid valve regurgitation. Estimated pulmonary artery peak systolic pressure 32 mmHg. 5. Mild pulmonary valve regurgitation. 6. Trace mitral valve regurgitation. 7. No intracardiac masses. 8. No significant pericardial effusion Compared to the study from 03/02/2021, there is no significant change in the aortic root dimensions Dr Ajay Stokes MD [facility] (Electronically Signed) Final Date: 23 November 2022 07:00 S
== END 2022-11-22 11:57 | disposition home or self-care (01) ==
LOC: RAD 12:01
PROVIDERS: PCP Family Medicine; Visit Provider Internal Medicine Cardiovascular Disease
DX: I50.9 Heart failure, unspecified (principal); I77.810 Thoracic aortic ectasia; Z87.74 Personal history of (corrected) congenital malformations of heart and circulatory system; I08.3 Combined rheumatic disorders of mitral, aortic and tricuspid valves
CPT/HCPCS: 93306

== ENCOUNTER 2022-12-15 09:39 | Outpatient (CLI) | payer MEDICARE, MEDICAID, SELFPAY ==
[2022-06-16 15:59] VITALS: BP 133/78; BMI 24.0
[2022-12-15] MEDS: iohexol 350 mg/mL 500 mL Btl (per mL) IV (09:48)
--- NOTE | 2022-12-15 10:00 | CT_ITS ---
WS: [id number] CTA THORACIC TECHNIQUE: Noncontrast and contrast enhanced CTA of the thoracic aorta with coronal and sagittal refo rmatted images and maximum intensity projection (MIP) images. CLINICAL INFORMATION: Thoracic Aneurysm COMPARISON: CT abdomen pelvis December 18, 2020 DLP: 462.[address] scans at [facility] use at least one of these dose optimization techniques: automated e xposure control; mA and/or kV adjustment per patient size (includes targeted exams where dose is matc hed to clinical indication); or iterative reconstruction. FINDINGS: Ascending thoracic aortic aneurysm measuring 4.1 CM. Normal aortic arch and descending thoracic aorta . Prominent LEFT main pulmonary artery. Visualized upper abdominal aorta is normal caliber. Celiac an d SMA are patent. No mediastinal or hilar lymphadenopathy. No axillary lymphadenopathy. Normal GE junction. Adrenal gla nds are normal. Noncontrast images are unremarkable. Lungs are well aerated. No acute pulmonary infiltrates. No focal pneumonia or pleural fluid. Partiall y calcified 7 mm nodule RIGHT lower lobe is unchanged. CT/CT angio chest [id number] IMPRESSION: 1. Aneurysmal ascending thoracic aorta measures 4.1 CM. 2. Normal descending thoracic aorta. 3. No acute pulmonary infiltrates. 4. Partially calcified 7 mm nodule RIGHT lower lobe is unchanged.
== END 2022-12-15 09:40 | disposition home or self-care (01) ==
LOC: RAD 09:42
PROVIDERS: PCP Family Medicine; Visit Provider Internal Medicine
DX: R91.1 Solitary pulmonary nodule; I71.20 Thoracic aortic aneurysm, without rupture, unspecified
CPT/HCPCS: 71275; Q9967

== ENCOUNTER → 2023-01-26 09:51 | Outpatient (BNVA) | payer MEDICARE, MEDICAID, SELFPAY ==
[2022-06-16 15:59] VITALS: BP 133/78; BMI 24.0
== END ==
PROVIDERS: PCP Family Medicine; Visit Provider Family Medicine
DX: Z02.2 Encounter for examination for admission to residential institution (principal); N13.8 Other obstructive and reflux uropathy; N40.1 Benign prostatic hyperplasia with lower urinary tract symptoms; I50.9 Heart failure, unspecified
CPT/HCPCS: 80053; 81000; 84153; 85025; 87086

== ENCOUNTER → 2023-03-30 11:24 | Outpatient (BNVA) | payer OTHER, SELFPAY ==
[2022-06-16 15:59] VITALS: BP 133/78; BMI 24.0
== END ==
PROVIDERS: PCP Family Medicine; Visit Provider Registered Nurse
DX: Z51.81 Encounter for therapeutic drug level monitoring (principal); Z79.899 Other long term (current) drug therapy
CPT/HCPCS: 80053; 80061; 80164; 82306; 82607; 83036; 83735; 85007; 85025

== ENCOUNTER → 2023-04-21 11:07 | Outpatient (BNVA) | payer MEDICARE, MEDICAID, SELFPAY ==
[2022-06-16 15:59] VITALS: BP 133/78; BMI 24.0
== END ==
PROVIDERS: PCP Family Medicine; Visit Provider Internal Medicine Cardiovascular Disease
DX: I71.20 Thoracic aortic aneurysm, without rupture, unspecified (principal); Z87.74 Personal history of (corrected) congenital malformations of heart and circulatory system; F20.9 Schizophrenia, unspecified; R91.1 Solitary pulmonary nodule
CPT/HCPCS: 99214

== ENCOUNTER → 2023-10-20 11:14 | Outpatient (BNVA) | payer MEDICARE, MEDICAID, SELFPAY ==
[2023-06-08 14:40] VITALS: BP 97/71; BMI 28.5
== END ==
PROVIDERS: PCP Family Medicine; Visit Provider Nurse Practitioner Family
DX: I77.810 Thoracic aortic ectasia (principal)
CPT/HCPCS: 99214

== ENCOUNTER 2023-11-03 12:37 | Outpatient (CLI) | payer MEDICARE, MEDICAID, SELFPAY ==
[2023-06-08 14:40] VITALS: BP 97/71; BMI 28.5
--- NOTE | 2023-11-03 13:00 | USCV_ITS ---
Bryant Martin Age: 58 Gender: M : 1965 Exam Date: 11/03/2023 13:12 Ordering Phys: Theresa Hernandez Technologist: ARIELLE Exam Location: [facility] – [place] Indication: dilated aortic root BP: 119 / 77 HR: Rhythm: Sinus Technical Quality: MEASUREMENTS (Male / Female) Normal Values FINDINGS Left Ventricle Normal left ventricular size, systolic function and wall thickness, with no regional wall motion abnormalities. Grade I/IV diastolic dysfunction (abnormal relaxation filling pattern), normal to mildly elevated filling pressures. Left ventricular ejection fraction is estimated at 60 %. Right Ventricle Normal right ventricular size and systolic function. Right Atrium The right atrium is normal in size. Left Atrium The left atrium is normal in size. Mitral Valve Structurally normal mitral valve without significant stenosis or prolapse. There is no mitral regurgitation. Aortic Valve Structurally normal trileaflet aortic valve. No aortic valve stenosis. Mild aortic valve regurgitation. Tricuspid Valve Structurally normal tricuspid valve without significant stenosis or regurgitation. Pulmonary artery systolic pressure is normal. Pulmonic Valve Structurally normal pulmonic valve without significant stenosis. There is no pulmonic regurgitation. Pericardium Normal pericardium without effusion. Aorta Ascending aortic dilation 3.35 cm IVC The inferior vena cava appears normal. CONCLUSIONS Normal left ventricular size, systolic function and wall thickness, with no regional wall motion abnormalities. Grade I/IV diastolic dysfunction (abnormal relaxation filling pattern), normal to mildly elevated filling pressures. Structurally normal trileaflet aortic valve. No aortic valve stenosis. Mild aortic valve regurgitation. Ascending aortic dilation 3.35 cm. EF 60% From the previous study dictated 11/23 22, the proximal aorta appears to be smaller in size. There is a large discrepancy from [address] scanning would solve the dilemma. Dr. Giovanni Torres MD (Electronically Signed) Final Date: 03 November 2023 16:01 S
== END 2023-11-03 12:38 | disposition home or self-care (01) ==
LOC: RAD 12:37
PROVIDERS: PCP Family Medicine; Visit Provider Nurse Practitioner Family
DX: I77.810 Thoracic aortic ectasia (principal); I35.1 Nonrheumatic aortic (valve) insufficiency
CPT/HCPCS: 93306

== ENCOUNTER → 2023-11-30 13:31 | Outpatient (BNVA) | payer OTHER, SELFPAY ==
[2023-06-08 14:40] VITALS: BP 97/71; BMI 28.5
== END ==
PROVIDERS: PCP Family Medicine; Visit Provider Psychiatry & Neurology Psychiatry
DX: Z79.899 Other long term (current) drug therapy (principal)
CPT/HCPCS: 80053; 80061; 80164; 83036; 84443; 85025

== ENCOUNTER 2023-12-19 11:38 | Outpatient (CLI) | payer MEDICARE, MEDICAID, SELFPAY ==
[2023-06-08 14:40] VITALS: BP 97/71; BMI 28.5
--- NOTE | 2023-12-19 12:00 | CT_ITS ---
WS: [id number] CTA THORACIC TECHNIQUE: Contrast enhanced CTA of the thoracic aorta with coronal and sagittal reformatted images a nd maximum intensity projection (MIP) images. CLINICAL INFORMATION: Thoracic Aneurysm COMPARISON: CT 12/15/2022 DLP: 697.[address] scans at [facility] use at least one of these dose optimization techniques: automated e xposure control; mA and/or kV adjustment per patient size (includes targeted exams where dose is matc hed to clinical indication); or iterative reconstruction. FINDINGS: Aneurysmal ascending thoracic aorta measures 4.1 cm not significantly changed compared to 12/15/2022. Proximal main pulmonary arteries are patent. Prominent LEFT main pulmonary artery is unchanged. Kya l caliber descending thoracic aorta. Celiac and SMA are patent in the upper abdomen. Adrenal glands are normal. Tiny esophageal hiatal her esme. Partially calcified nodule in the RIGHT lower lobe along the diaphragm is unchanged. No mediasti nal or hilar lymphadenopathy. No axillary lymphadenopathy. Chronic emphysematous changes. No acute pu lmonary infiltrates. IMPRESSION: 1. Aneurysmal ascending thoracic aorta measures 4.1 cm not significantly changed compared to 2022. 2. Normal descending thoracic aorta. 3. No other changes compared to previous.
[2023-12-19] MEDS: iohexol 350 mg/mL 500 mL Btl (per mL) IV (12:25)
== END 2023-12-19 11:39 | disposition home or self-care (01) ==
LOC: RAD 11:39
PROVIDERS: PCP Family Medicine; Visit Provider Internal Medicine
DX: I71.20 Thoracic aortic aneurysm, without rupture, unspecified (principal); I71.21 Aneurysm of the ascending aorta, without rupture
CPT/HCPCS: 71275; 99214; Q9967

== ENCOUNTER → 2024-04-08 10:40 | Outpatient (BNVA) | payer MEDICARE, OTHER, SELFPAY ==
[2024-01-03 09:45] VITALS: BP 97/71; BMI 28.5
== END ==
PROVIDERS: PCP Family Medicine; Visit Provider Psychiatry & Neurology Psychiatry
DX: F41.1 Generalized anxiety disorder (principal); Z79.899 Other long term (current) drug therapy
CPT/HCPCS: 80061; 83036

== ENCOUNTER → 2024-04-23 11:21 | Outpatient (BNVA) | payer OTHER, SELFPAY ==
[2024-04-11 13:37] VITALS: BP 131/85; BMI 30.9
== END ==
PROVIDERS: PCP Family Medicine; Visit Provider Internal Medicine Cardiovascular Disease
DX: R06.02 Shortness of breath (principal); R07.9 Chest pain, unspecified
CPT/HCPCS: 36415; 80048; 83880; 93005

== ENCOUNTER → 2024-06-20 09:42 | Outpatient (BNVA) | payer MEDICARE, MEDICAID, SELFPAY ==
[2024-04-11 13:37] VITALS: BP 131/85; BMI 30.9
== END ==
PROVIDERS: PCP Family Medicine; Visit Provider Surgery
DX: Z12.11 Encounter for screening for malignant neoplasm of colon (principal); Z86.010 Personal history of colon polyps
CPT/HCPCS: 99024; 99204

== ENCOUNTER → 2024-07-15 14:53 | Outpatient (BNVA) | payer MEDICARE, MEDICAID, SELFPAY ==
[2024-04-11 13:37] VITALS: BP 131/85; BMI 30.9
== END ==
PROVIDERS: PCP Family Medicine; Visit Provider Family Medicine
DX: Z12.5 Encounter for screening for malignant neoplasm of prostate (principal); I50.32 Chronic diastolic (congestive) heart failure
CPT/HCPCS: 80048; 83880; G0103

== ENCOUNTER 2024-07-24 09:18 | Day surgery (SDC) | payer MEDICARE, MEDICAID, SELFPAY ==
[2024-04-11 13:37] VITALS: BP 131/85; BMI 30.9
[2024-07-24 09:35] VITALS: BP 136/76; PULSE 78; RESP 18; TEMP 36.2; O2SAT 94; BMI 33.0
[2024-07-24] MEDS: sodium chloride 0.9% 1,000 ML 30 ML IV (09:42)
--- NOTE | 2024-07-24 10:17 | ANES.PREANE2 ---
Pre-Anesthetic Assessment Height/Weight: Height 1.7 m Weight 95.708 kg Temp Pulse Resp BP Pulse Ox O2 Del Method 97.2 F L 78 18 136/76 94 Room Air 07/24/24 09:35 07/24/24 09:35 07/24/24 09:35 07/24/24 09:35 07/24/24 09:35 07/24/24 09:35 Preop Diagnosis: screening Operation Date: 07/24/24 10:30 Proposed Procedures p Colonoscopy 98399, G0105, Z12.11(Not Applicable) - Tian Tucker, DO Was Beta Leslee taken within 24 hours: N/A Was Clonidine taken within 24 hours: N/A Last intake: Intake Last Liquid Date 07/23/24 Last Liquid Time 22:00 Last Solid Date 07/22/24 Last Solid Time 17:00 Social No alcohol and No tobacco Exam alert and oriented x 3 Airway Submandibular: within normal limits Cervical ROM: within normal limits Mallampati: Class II Dentition: false History/ROS No significant history except as noted Pulmonary None reported CV/HEM Congestive Heart Failure None reported Hepatic None reported GI Gastroesophageal Reflux Disease Metabolic None reported Musc/skel None reported Neuropsych Dementia and Depression Anesthetic Plan ASA status: 3 Anesthesia: MAC Medications/Allergies Home Medications Medication Instructions Recorded Confirmed Last Taken Type magnesium oxide 250 mg PO DAILY@1500 02/21/20 07/24/24 07/23/24 History kvbltczlladc-uon-luivt acid-vit 1 tab PO DAILY@08 01/08/21 07/24/24 07/23/24 History K-lycop 400 mcg-20 mcg-370 mcg tablet (Men's 50 Plus Multivitamin) potassium gluconate 595 mg (99 mg) 595 mg PO DAILY@15 07/13/21 07/24/24 07/23/24 History tablet acetaminophen 500 mg tablet 500 mg PO Q6H PRN fever or pain 02/16/23 07/24/24 Unknown Rx (Tylenol Extra Strength) #90 tabs memantine 10 mg tablet (Namenda) 10 mg PO BID #60 tabs 09/03/23 07/24/24 07/23/24 Rx clotrimazole-betamethasone 1 1 applic topical BID 2 weeks #45 01/23/24 07/24/24 07/23/24 Rx %-0.05 % topical cream grams ketoconazole 2 % shampoo 1 applic topical DAILY #120 mL 01/23/24 07/24/24 07/23/24 Rx buspirone 15 mg tablet 15 mg PO BID #60 tabs 04/04/24 07/24/24 07/23/24 Rx citalopram 40 mg tablet 40 mg PO DAILY@08 #30 tabs 04/04/24 07/24/24 07/23/24 Rx divalproex 250 mg tablet,delayed 250 mg PO DAILY #30 tabs 04/04/24 07/24/24 07/24/24 Rx release (Depakote) divalproex 500 mg tablet,delayed 500 mg PO DAILY #30 tabs 04/04/24 07/24/24 07/24/24 Rx release (Depakote) donepezil 23 mg tablet 23 mg PO DAILY #30 tabs 04/04/24 07/24/24 07/23/24 Rx hydroxyzine HCl 25 mg tablet 50 mg (2 x 25 mg) PO BID PRN 04/04/24 07/24/24 07/24/24 Rx anxiety #60 tabs risperidone 0.25 mg tablet 0.25 mg PO DAILY #30 tabs 04/04/24 07/24/24 07/23/24 Rx oxygen-air delivery systems 04/23/24 07/22/24 Unknown History magnesium aspart,citrate,oxide 400 mg PO DAILY 06/20/24 07/24/24 07/23/24 History furosemide 20 mg tablet 10 mg (1/2 x 20 mg) PO QAM 90 days 07/15/24 07/24/24 07/23/24 Rx #45 tabs pantoprazole 40 mg tablet,delayed 40 mg PO DAILY 07/22/24 07/24/24 07/23/24 History release tamsulosin 0.4 mg capsule 0.4 mg PO DAILY 07/22/24 07/24/24 07/23/24 History Allergies Allergy/AdvReac Type Severity Reaction Status Date / Time No Known Allergies Allergy Verified 07/24/24 09:33 Current Medications Generic Name Dose Route Start Last Admin Trade Name Freq PRN Reason Stop Dose Admin Sodium Chloride 1,000 mls @ 30 mls/hr 07/24/24 09:30 07/24/24 09:42 Sodium Chloride 0.9% IV 07/25/24 09:29 30 mls/hr .Q24H SIGRID Administration PFSH Anesthesia Medical History Schizophrenia Poor compliance with medication Decreased independence with activities of daily living Generalized anxiety disorder Medication management BPH w urinary obs/LUTS Psychiatric care Acute dehydration Acute urinary retention Chronic hypokalemia Dementia in other diseases classified elsewhere without behavioral disturbance Chronic schizophrenia Surgical History Status post colonoscopy (01/26/21) Diverticulosis, transverse and sigmoid colon polyp H/O esophagogastroduodenoscopy (01/26/21) S/P VSD repair Family History Other CAD (coronary artery disease) Cancer Dementia in other diseases classified elsewhere without behavioral disturbance Diabetes Hypertension Psychiatric illness Stroke Social History (Updated 07/22/24 @ 11:07 by Zoie Mo RN) Smoking and tobacco/nicotine status: never used tobacco/nicotine Second hand smoke exposure: Yes Alcohol intake: never Substance/Drug Use: never Adopted: No Caregiver/support person: Yes Lives independently: No Household members: other Details: assisted living facility - [facility] Housing: Assisted Living Facility Marital status: Single Number of children: 0 Number of grandchildren: 0 Highest education level completed: 10th Grade service: No Current occupational status: disabled Current occupational exposures/hazards: No Pets and animals: No Leisure activites: music, games and other Leisure activities details: watch tv, bingo, simin art, puzzle booksand PSR Sexually active: No Do you think of yourself as: Straight/Heterosexual Current gender identity: Male Monika/Scientology: Yazdanism Special monika needs: No Agree to transfusion: Yes Data Anesthesia Cardiac Studies: Echocardiogram 11/03/23 Echocardiogram Ultrasound 03/02/21
--- NOTE | 2024-07-24 10:50 | PM.HP ---
Providers/Chief Complaint Primary Care Provider: Elizabeth Canchola MD Chief Complaint: Z12.11 History of Present Illness Bryant Martin is a 59 year old male Review of Systems General: Reports: 10 or more systems reviewed and unremarkable except in HPI and below Medications/Allergies Home Medications Medication Instructions Recorded Confirmed Last Taken Type magnesium oxide 250 mg PO DAILY@1500 02/21/20 07/24/24 07/23/24 History siaoifxebkqn-znc-xkslz acid-vit 1 tab PO DAILY@08 01/08/21 07/24/24 07/23/24 History K-lycop 400 mcg-20 mcg-370 mcg tablet (Men's 50 Plus Multivitamin) potassium gluconate 595 mg (99 mg) 595 mg PO DAILY@15 07/13/21 07/24/24 07/23/24 History tablet acetaminophen 500 mg tablet 500 mg PO Q6H PRN fever or pain 02/16/23 07/24/24 Unknown Rx (Tylenol Extra Strength) #90 tabs memantine 10 mg tablet (Namenda) 10 mg PO BID #60 tabs 09/03/23 07/24/24 07/23/24 Rx clotrimazole-betamethasone 1 1 applic topical BID 2 weeks #45 01/23/24 07/24/24 07/23/24 Rx %-0.05 % topical cream grams ketoconazole 2 % shampoo 1 applic topical DAILY #120 mL 01/23/24 07/24/24 07/23/24 Rx buspirone 15 mg tablet 15 mg PO BID #60 tabs 04/04/24 07/24/24 07/23/24 Rx citalopram 40 mg tablet 40 mg PO DAILY@08 #30 tabs 04/04/24 07/24/24 07/23/24 Rx divalproex 250 mg tablet,delayed 250 mg PO DAILY #30 tabs 04/04/24 07/24/24 07/24/24 Rx release (Depakote) divalproex 500 mg tablet,delayed 500 mg PO DAILY #30 tabs 04/04/24 07/24/24 07/24/24 Rx release (Depakote) donepezil 23 mg tablet 23 mg PO DAILY #30 tabs 04/04/24 07/24/24 07/23/24 Rx hydroxyzine HCl 25 mg tablet 50 mg (2 x 25 mg) PO BID PRN 04/04/24 07/24/24 07/24/24 Rx anxiety #60 tabs risperidone 0.25 mg tablet 0.25 mg PO DAILY #30 tabs 04/04/24 07/24/24 07/23/24 Rx oxygen-air delivery systems 04/23/24 07/22/24 Unknown History magnesium aspart,citrate,oxide 400 mg PO DAILY 06/20/24 07/24/24 07/23/24 History furosemide 20 mg tablet 10 mg (1/2 x 20 mg) PO QAM 90 days 07/15/24 07/24/24 07/23/24 Rx #45 tabs pantoprazole 40 mg tablet,delayed 40 mg PO DAILY 07/22/24 07/24/24 07/23/24 History release tamsulosin 0.4 mg capsule 0.4 mg PO DAILY 07/22/24 07/24/24 07/23/24 History Allergies Allergy/AdvReac Type Severity Reaction Status Date / Time No Known Allergies Allergy Verified 07/24/24 09:33 PFSH Acute PFSH: Medical History Schizophrenia Poor compliance with medication Decreased independence with activities of daily living Generalized anxiety disorder Medication management BPH w urinary obs/LUTS Psychiatric care Acute dehydration Acute urinary retention Chronic hypokalemia Dementia in other diseases classified elsewhere without behavioral disturbance Chronic schizophrenia Surgical History Status post colonoscopy (01/26/21) Diverticulosis, transverse and sigmoid colon polyp H/O esophagogastroduodenoscopy (01/26/21) S/P VSD repair Family History Other CAD (coronary artery disease) Cancer Dementia in other diseases classified elsewhere without behavioral disturbance Diabetes Hypertension Psychiatric illness Stroke Social History (Updated 07/22/24 @ 11:07 by Zoie Mo RN) Smoking and tobacco/nicotine status: never used tobacco/nicotine Second hand smoke exposure: Yes Alcohol intake: never Substance/Drug Use: never Adopted: No Caregiver/support person: Yes Lives independently: No Household members: other Details: assisted living facility [facility] Housing: Assisted Living Facility Marital status: Single Number of children: 0 Number of grandchildren: 0 Highest education level completed: 10th Grade service: No Current occupational status: disabled Current occupational exposures/hazards: No Pets and animals: No Leisure activites: music, games and other Leisure activities details: watch tv, bingo, simin art, puzzle booksand PSR Sexually active: No Do you think of yourself as: Straight/Heterosexual Current gender identity: Male Monika/Holiness: Protestant Special monika needs: No Agree to transfusion: Yes Vitals/I&O/Wt Last Vital Signs Temp 97.2 F L 07/24/24 09:35 Pulse 78 07/24/24 09:35 Resp 18 07/24/24 09:35 BP 136/76 07/24/24 09:35 Pulse Ox 94 07/24/24 09:35 O2 Del Method Room Air 07/24/24 09:35 Weight last 48 hrs Weight 211 lb A&P Assessment and plan (1) History of colon polyps: Plan Colonoscopy Attestations Medical Necessity Statement*: Home Coding Level of Care Code Acute Code for Chg Fwd Diagnoses History of colon polyps Z86.010
--- NOTE | 2024-07-24 10:57 | PC.NURSE ---
Pt has bilat ischial decubitus ulcers. Stage 1 on the rt and stage 2 on the left.
[2024-07-24 11:10] VITALS: BP 91/57; PULSE 62; RESP 18; TEMP 36.1; O2SAT 96
[2024-07-24 11:15] VITALS: BP 115/69; PULSE 59; RESP 18; O2SAT 97
[2024-07-24 11:31] VITALS: BP 112/69; PULSE 52; RESP 18; O2SAT 99
--- NOTE | 2024-07-24 12:40 | ANE.PACU2 ---
Inpatient post-anesthesia follow up: Airway intact: Yes Vital signs: Temperature 97.0 F Pulse Rate 52 Respiratory Rate 18 Blood Pressure 112/69 Pulse Oximetry 99 Oxygen Delivery Me thod Room Air Oxygen Flow Rate 3 Fraction of Inspir ed Oxygen Hydration adequate: Yes Nausea and vomiting: No Pain level: 1 Mental status: Baseline
== END 2024-07-24 11:40 | disposition home or self-care (01) ==
PROVIDERS: PCP Family Medicine; Visit Provider Surgery
PROC: 0DJD8ZZ Inspection of Lower Intestinal Tract, Via Natural or Artificial Opening Endoscopic (ICD-10-PCS; CPT 45378; principal; 2024-07-24 10:30)
DX: Z12.11 Encounter for screening for malignant neoplasm of colon (principal); D12.4 Benign neoplasm of descending colon; K57.30 Diverticulosis of large intestine without perforation or abscess without bleeding; N40.1 Benign prostatic hyperplasia with lower urinary tract symptoms; N13.8 Other obstructive and reflux uropathy; Z86.0100 Personal history of colon polyps, unspecified; K21.9 Gastro-esophageal reflux disease without esophagitis; F20.9 Schizophrenia, unspecified
CPT/HCPCS: 45385; 88305; J2704; J7030

== ENCOUNTER → 2024-10-22 10:35 | Outpatient (BNVA) | payer MEDICARE, MEDICAID, SELFPAY ==
[2024-04-11 13:37] VITALS: BP 131/85; BMI 30.9
== END ==
PROVIDERS: PCP Family Medicine; Visit Provider Family Medicine
DX: N40.1 Benign prostatic hyperplasia with lower urinary tract symptoms (principal); N13.8 Other obstructive and reflux uropathy; I50.32 Chronic diastolic (congestive) heart failure; Z51.81 Encounter for therapeutic drug level monitoring; Z86.79 Personal history of other diseases of the circulatory system
CPT/HCPCS: 80053; 81000; 83880; 85025; 87086

== ENCOUNTER → 2024-11-08 10:02 | Outpatient (BNVA) | payer MEDICARE, MEDICAID, SELFPAY ==
[2024-04-11 13:37] VITALS: BP 131/85; BMI 30.9
== END ==
PROVIDERS: PCP Family Medicine; Visit Provider Nurse Practitioner Family
DX: I71.20 Thoracic aortic aneurysm, without rupture, unspecified (principal); Z87.74 Personal history of (corrected) congenital malformations of heart and circulatory system; I50.32 Chronic diastolic (congestive) heart failure; I35.1 Nonrheumatic aortic (valve) insufficiency
CPT/HCPCS: 99214

== ENCOUNTER 2024-11-20 11:29 | Outpatient (CLI) | payer MEDICARE, MEDICAID, SELFPAY ==
[2024-04-11 13:37] VITALS: BP 131/85; BMI 30.9
--- NOTE | 2024-11-20 12:00 | USCV_ITS ---
MartinBryant wallace Age: 59 Gender: M : 1965 Exam Date: 11/20/2024 12:05 Ordering Phys: Theresa Hernandez Technologist: CT Exam Location: [facility] [place]_ Indication: BP: 130 / 64 HR: 57 Rhythm: Sinus Technical Quality: Adequate MEASUREMENTS (Male / Female) Normal Values 2D ECHO LVOT Diameter 2.3 cm LV Ejection Fraction MOD 4C 43.6 % LV Ejection Fraction MOD 2C 37.5 % LV Ejection Fraction 2C AL 38.5 % LA Diameter 3.9 cm RA Systolic Volume 4C AL 90.1 ml RA Systolic Volume 4C MOD 84.3 ml LA Sys Volume AL 79.7 cm cubed LA Sys Volume Index AL 35.9 cm cubed/m squared Aorta at Sinotubular Diameter 3.2 cm IVC Diameter 2.6 cm M-MODE LA Ao Ratio MM 1.2 AV Cusp Separation MM 2.4 cm DOPPLER AV Peak Velocity 141.0 cm/s LVOT Peak Velocity 117.0 cm/s AV Area Cont Eq vti 3.4 cm squared AV Area Cont Eq pk 3.3 cm squared MV Peak Velocity 64.0 cm/s MV Area PHT 1.9 cm squared Mitral E to A Ratio 0.9 TR Peak Velocity 283.0 cm/s TR Peak Gradient 32.0 mmHg TR Mean Velocity 171.0 cm/s TR Mean Gradient 14.9 mmHg TR Velocity Time Integral 72.0 cm TV Peak E Velocity 72.0 cm/s PV Peak Velocity 170.0 cm/s FINDINGS Left Ventricle Moderately increased left ventricular cavity size. Severely decreased left ventricular systolic function. Left ventricular ejection fraction is estimated at 38 %. Global left ventricular hypokinesis. Grade II/IV diastolic dysfunction, moderately elevated filling pressures. Right Ventricle The right ventricle is normal in size and function. Right Atrium The right atrium is normal in size. Left Atrium Moderately increased left atrial size. Mitral Valve Thickened mitral valve. No mitral valve stenosis. Mild mitral valve regurgitation. Aortic Valve Mild aortic valve calcification. No aortic valve stenosis. Mild aortic valve regurgitation. Tricuspid Valve Structurally normal tricuspid valve without significant stenosis or regurgitation. Pulmonary artery systolic pressure is normal. Pulmonic Valve Moderate pulmonary valve regurgitation. Pericardium Normal pericardium without effusion. Aorta Normal ascending aorta dimension. IVC The inferior vena cava appears normal. CONCLUSIONS Moderately increased left ventricular cavity size. Severely decreased left ventricular systolic function. Left ventricular ejection fraction is estimated at 38 %. Global left ventricular hypokinesis. Grade II/IV diastolic dysfunction, moderately elevated filling pressures. Moderately increased left atrial size. Thickened mitral valve. No mitral valve stenosis. Mild mitral valve regurgitation. Mild aortic valve calcification. No aortic valve stenosis. Mild aortic valve regurgitation. Moderate pulmonary valve regurgitation. Right atrial pressure is around 10 mm of mercury. Shelly Claire MD (Electronically Signed) Final Date: 10 December 2024 10:37 S
== END 2024-11-20 11:30 | disposition home or self-care (01) ==
PROVIDERS: PCP Family Medicine; Visit Provider Nurse Practitioner Family
DX: I50.32 Chronic diastolic (congestive) heart failure (principal); Z87.74 Personal history of (corrected) congenital malformations of heart and circulatory system; I77.810 Thoracic aortic ectasia; I51.7 Cardiomegaly; R93.1 Abnormal findings on diagnostic imaging of heart and coronary circulation; I34.0 Nonrheumatic mitral (valve) insufficiency; I35.8 Other nonrheumatic aortic valve disorders; I35.1 Nonrheumatic aortic (valve) insufficiency; I37.1 Nonrheumatic pulmonary valve insufficiency; I51.89 Other ill-defined heart diseases
CPT/HCPCS: 93306

== ENCOUNTER 2024-12-10 11:46 | Outpatient (CLI) | payer MEDICARE, MEDICAID, SELFPAY ==
[2024-04-11 13:37] VITALS: BP 131/85; BMI 30.9
--- NOTE | 2024-12-10 12:00 | CT_ITS ---
WS: [id number] CTA THORACIC AORTA WITH AND WITHOUT HISTORY: aortic aneurysm TECHNIQUE: CTA imaging of the thorax is performed with and without contrast. After noncontrast imaging is performed, CT angiogram is performed during injection of Omnipaque 350; 100 mL IV.. Sagittal and coronal reconstructions, sagittal and coronal MIP imaging is submitted. All CT scans at [facility] use at least one of these dose optimization techniques: automated exposure control; mA and/or kV adjustment per patient size (includes targeted exams where dose is matched to clinical indication); or iterative reconstruction. DLP: 764.06 mGy.cm COMPARISON: 12/19/2023 Mildly dilated ascending thoracic aorta. Maximum diameter of 4.2 cm to the prior study. Normal caliber through the aortic arch. Normal descending thoracic aorta size. Sinotubular junction and sinus of Valsalva are normal. No progression of aneurysm and no dissection. Mild atherosclerotic plaque within the aorta. Proximal patent pulmonary artery at the level of the valve is very slightly dilated. Main pulmonary artery is normal size. LEFT pulmonary artery is dilated to 3.3 cm. Normal RIGHT main pulmonary artery. Enlarged RIGHT heart. All 4 chambers are slightly enlarged but greater involving the RIGHT heart. No mediastinal or hilar adenopathy. No pulmonary mass or pneumonia. Partially calcified pulmonary nodule at the RIGHT diaphragmatic surface is stable. Visualized liver and gallbladder are negative. No adrenal mass. Mild diverticular disease at the splenic flexure. No destructive bone lesions. Prior median sternotomy. CT/CT angio chest [id number] IMPRESSION: 1. Stable mild ascending aortic aneurysmal dilatation to 4.2 cm. 2. Dilated pulmonary artery just distal to the pulmonic valve, unchanged. 3. Dilated LEFT main pulmonary artery to 3.3 cm. Unchanged. 4. Cardiomegaly. All 4 chambers are enlarged. Slightly greater enlargement of the RIGHT heart.
[2024-12-10] MEDS: iohexol 350 mg/mL 500 mL Btl (per mL) IV (12:15)
== END 2024-12-10 11:47 | disposition home or self-care (01) ==
LOC: RAD 11:48
PROVIDERS: PCP Family Medicine; Visit Provider Nurse Practitioner Family
DX: I77.810 Thoracic aortic ectasia (principal); R93.89 Abnormal findings on diagnostic imaging of other specified body structures; I51.7 Cardiomegaly; I70.0 Atherosclerosis of aorta; R91.1 Solitary pulmonary nodule; K57.90 Diverticulosis of intestine, part unspecified, without perforation or abscess without bleeding; Z98.890 Other specified postprocedural states
CPT/HCPCS: 71275

== ENCOUNTER 2024-12-26 07:43 | Outpatient (CLI) | payer MEDICARE, MEDICAID, SELFPAY ==
[2024-04-11 13:37] VITALS: BP 131/85; BMI 30.9
[2024-12-26 07:57] VITALS: BMI 34.7
--- NOTE | 2024-12-26 08:02 | ECG_ITS ---
[employer] Test Date: 2024-12-26 Pat Name: Bryant Martin Department: Room: Gender: Male Manager Forensic: : 1965 Requested By: Ajay Stokes Order Number: [id number] Nathan MD: Toribio Barnhart M.D. Interpretive Statements LEXISCAN: Procedure: At the baseline, the blood pressure was 125/84 mmHg with a heart rate of 60 bpm. The electrocardiogram showed normal sinus rhythm, right bundle branch block with non specific ST T wave changes. The Lexiscan was infused over a period of 20 seconds. A total of 0.4 mg of Lexiscan was infused. The stress phase was continued for a total of 5 minutes. Heart rate was at the end of stress phase was 74 bpm and a blood pressure of 127/76 mmHg. The EKG at the peak infusion revealed normal sinus rhythm with no significant ST-T wave changes. Sestamibi was injected 20 seconds after the Lexiscan infusion. Blood pressure at the end of recovery phase was 113/77 mmHg with a heart rate of 71 bpm. Conclusion: 1. Normal EKG response to Lexiscan infusion 2. No Lexiscan induced chest pain or cardiac arrhythmia. 3. Normal blood pressure and heart rate response. 4. Sestamibi/sestamibi perfusion scan pending; see separate report. Electronically Signed On 01-11-2025 21:21:03 CDT by Toribio Barnhart M.D. [email or web address]
--- NOTE | 2024-12-26 08:04 | NMCV_ITS ---
NM sadie perf SPECT r/s* [id number] Bryant Martin Age: 59 Gender: M : 1965 Exam Date: 12/26/2024 08:52 Ordering Phys: Ajay Stokes MD ([email or web address]) Technologist: ÁNGEL Venegas Exam Location: [facility] Indications: cp STRESS TEST [facility] IMAGE PROTOCOL Rest/Stress 1 Lexiscan Day Radiopharmaceutical Dose (mCi) Administration Site Administered by Rest: Tc-99m 10.4 IV Beth Boone, REPTILE FARMER Sestamibi Stress:Tc-99m 33 IV Beth Olsengle, REPTILE FARMER Sestamibi Rest: 26-Dec-2024 60 Discovery 630 Stress: 26-Dec-2024 30 Discovery 630 0.4mg Lexiscan. Images obtained in supine and prone position. SPECT RESULTS Technical Quality: Good Raw Data Analysis: Normal Image Corrections: No attenuation or motion correction applied Summed Stress Score: 11 Summed Rest Score: 9 Summed Difference Score: 2 PERFUSION FINDINGS Moderate area of moderate decrease tracer uptake involving the inferior, inferolateral and apical lateral segments with a small area of reversibility at the basal inferior wall region, with the supine imaging. However with the prone imaging, no significant reversibility was noted FUNCTIONAL RESULTS (calculated via Gated SPECT) Stress Image LV EF (%): 68 Stress EDV (mL):88 TID: 0.9 Stress ESV (mL):28 FUNCTIONAL FINDINGS: Segmental wall motion analysis revealing no gross wall motion abnormalities IMPRESSIONS 1. Myocardial perfusion imaging revealing moderate area of moderately decreased persistent tracer uptake involving the inferior , inferolateral and apical regions with a very small area of reversibility at the basal inferior region may have suggestive Myocard scarring in the distribution of the right coronary artery/circumflex artery with a very small area of ischemia. However because of the inconsistency with the prone imaging, this could be artifactual 2. Normal LV ejection fraction of 68%. 3. LV wall motion analysis revealing no gross wall motion abnormalities. 4. Normal LV volume No similar previous studies are available for comparison Dr Ajay Stokes MD [facility] (Electronically Signed) Final Date: 26 December 2024 15:24 S
[2024-12-26] MEDS: regadenoson 0.4 Mg/5 ml Syringe IVP (09:21)
[2024-12-26 09:28] VITALS: BP 113/77; PULSE 70
== END 2024-12-26 07:44 | disposition home or self-care (01) ==
LOC: CDL 07:44
PROVIDERS: PCP Family Medicine; Visit Provider Internal Medicine Cardiovascular Disease
DX: I50.20 Unspecified systolic (congestive) heart failure (principal)
CPT/HCPCS: 36415; 78452; 93017; 96374; A9500; J2785

== ENCOUNTER → 2025-01-07 15:05 | Outpatient (BNVA) | payer MEDICARE, MEDICAID, SELFPAY ==
[2024-04-11 13:37] VITALS: BP 131/85; BMI 30.9
== END ==
PROVIDERS: PCP Family Medicine; Visit Provider Internal Medicine Cardiovascular Disease
DX: I50.32 Chronic diastolic (congestive) heart failure (principal); I25.10 Atherosclerotic heart disease of native coronary artery without angina pectoris; I71.20 Thoracic aortic aneurysm, without rupture, unspecified; Z87.74 Personal history of (corrected) congenital malformations of heart and circulatory system
CPT/HCPCS: 99214

== ENCOUNTER → 2025-01-10 11:44 | Outpatient (BNVA) | payer MEDICARE, MEDICAID, SELFPAY ==
[2024-04-11 13:37] VITALS: BP 131/85; BMI 30.9
== END ==
PROVIDERS: PCP Family Medicine; Visit Provider Nurse Practitioner
DX: N40.1 Benign prostatic hyperplasia with lower urinary tract symptoms (principal); R32 Unspecified urinary incontinence; N13.8 Other obstructive and reflux uropathy
CPT/HCPCS: 81000; 87086

== ENCOUNTER 2025-01-16 12:04 | Outpatient (CLI) | payer MEDICARE, MEDICAID, SELFPAY ==
[2024-04-11 13:37] VITALS: BP 131/85; BMI 30.9
[2025-01-16 13:00] LABS: Basophils # 0.1 10^3/uL (0.0-0.1); Basophils % 0.7 %; Eosinophils # 0.3 10^3/uL (0.0-0.8); Eosinophils % 3.4 %; Hematocrit 41.8 % (37-53); Lymphocytes % 27.8 %; Mean Corpuscular HGB Conc 32.5 g/dL (30-55); Mean Corpuscular Hemoglobin 27.9 pg (27-33); Mean Corpuscular Volume 85.7 fl (82-101); Mean Platelet Volume 9.4 fL (7.4-10.4); Monocytes # 0.7 10^3/uL (0.2-0.9); Monocytes % 10.1 %; Neutrophils # 4.19 10^3/uL (1.8-7.7); Neutrophils % 57.7 %; Nucleated Red Blood Cells % 0 %; Platelet Count 216 10^3/cmm (157-399); Red Blood Count 4.88 10^6/uL (3.85-5.65); Red Cell Distribution Width 14.6 % (12.1-15.1); White Blood Count 7.26 10^3/uL (3.29-11.43)
[2025-01-16 13:15] LABS: INR 0.99 (0.83-1.21); Prothrombin Time (Patient) 13.8 Seconds (12.0-15.1)
[2025-01-16 13:18] LABS: Anion Gap 14.2 (5-19); Blood Urea Nitrogen 15 mg/dL (8-23); Calcium 8.8 mg/dL (8.5-10.5); Carbon Dioxide 27 mmol/L (22-29); Chloride 101 mmol/L (98-107); Glomerular Filtration Rate 85.8 mL/min (90-130); Glucose 92 mg/dL (65-115); Osmolality Calculated 286 mOsm/kg (285-295); Potassium 4.2 mmol/L (3.5-5.1); Sodium 138 mmol/L (136-145)
== END 2025-01-16 12:05 | disposition home or self-care (01) ==
LOC: LAB 12:06
PROVIDERS: PCP Family Medicine; Visit Provider Internal Medicine Cardiovascular Disease
DX: I50.32 Chronic diastolic (congestive) heart failure (principal); R58 Hemorrhage, not elsewhere classified
CPT/HCPCS: 36415; 80048; 85025; 85610

== ENCOUNTER 2025-01-21 05:42 | Outpatient (CLI) | payer MEDICARE, MEDICAID, SELFPAY ==
[2024-04-11 13:37] VITALS: BP 131/85; BMI 30.9
[2025-01-21] VITALS (20 sets, daily range): BP systolic 95–157; BP diastolic 51–90; PULSE 55–66; RESP 12–20; TEMP 37.1; O2SAT 94–99; BMI 35.2
--- NOTE | 2025-01-21 06:00 | XACV_ITS ---
Exam Room: [id number] Ht: 170 cm Wt: 102 kg BSA: 2.24 m2 Gender: Male : 1965 Any Known Allergies: No known allergies Exam Priority: Routine Procedure(s): Procedure Description: Diagnostic procedure Procedure Description: Right Heart Catheterization Procedure Description: O2 saturation Procedure Description: Coronary Angiography Alethea BRYAN; Diagnostic Cath Status: Elective Diagnostic Findings * No disease noted in the Left Main, Left Anterior Descending, Right, or Circumflex coronary arteries. * Coronary angiography shows right dominance. Conclusions 1. No disease noted in the Left Main, Left Anterior Descending, Right, or Circumflex coronary arteries. Recommendations * Continue current medical management and risk factor modification. Pressures Phase:Rest AO : 149 / 79 ( 106 ) @ 9:49:00 AM 131 / 68 ( 95 ) @ 9:59:00 AM RV : 44 / 10 / 22 @ 9:32:00 AM PA : 44 / 17 ( 29 ) @ 9:31:00 AM RA : a wave = 20 v wave = 17 mean = 17 @ 9:33:00 AM a wave = 23 v wave = 20 mean = 20 @ 9:34:00 AM PCW : a wave = 19 v wave = 17 mean = 18 @ 9:31:00 AM O2 Content Phase:Rest PA : O2 Content O2: 58.8 @ 9:49:00 AM Saturations Phase:Rest AO : 93 @ 9:31:00 AM RV : 62 @ 9:59:00 AM PA : 59 @ 9:49:00 AM Cardiac Output Phase:Rest Lucio : 4 @ 9:15:55 AM Lucio Cardiac Index: 2 @ 9:15:55 AM Flow Phase:Rest Qp : 4 @ 9:15:55 AM Qs : 4 @ 9:15:55 AM Clinical Evaluation EBL: 5mL-10mL Procedural Details Procedure Consent Obtained. Pre-Procedure Time Out. Identified patient by full name and date of as verbalized by the patient/guarantor. Does the consent match the physician's order: Yes. Accurate & Complete Informed Consent: Yes. Inpatient/Outpatient History & Physical on Chart: Yes. If H&P is completed, is and addenduem needed: No; If yes, is the addendum complete: N/A. Visualize and Verify Site with Patient/Guarantor: N/A. Relevant Radiology Images available: Yes. Pre-op teaching completed and patient verbalized understanding. The risks, benefits, and alternatives of sedation and/or procedure were discussed by physician. The patient agrees to continue. Procedure started. [facility] Clinical Fraility Score: 3: Managing Well. [place] Indications: LV Dysfunction. Chest Pain Symptom Assessment: Typical Angina Symptoms. Correct patient, site and procedure confirmed by cath team. PERRLA. 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 Lungs clear x 5 lobes. Current diagnosis: Chest Pain. IV Site on Arrival: 20 gauge in the right anticubital. IV Site on Arrival: 20 gauge in the left anticubital. IV Fluids: 0.9% NaCl at KVO. 0 mL infused prior to labor service representative. Pre Procedural Pulses: bilateral dorsalis pedis was 3+. Pre Procedural Pulses: bilateral posterior tibial was Doppled. Pre Procedural Pulses: right radial was Absent. Pre Procedural Pulses: left radial was 3+. Oxygen started at 2liters/min via nasal canula. right groin was prepped with chloroprep then draped in the usual sterile fashion. right brachial was prepped with chloroprep then draped in the usual sterile fashion. Baseline sample Acquired. HR: 72 BPM. Physician arrived. Physician scrubbed in. Immediate Pre-Procedure Time Out. Correct Patient: Yes; Correct Procedure: Yes; Correct Site: Yes; Correct Patient Position: Yes; Correct Supplies: Yes; Dried Flammable Prep: Yes; Blood Products Available: N/A;. Lidocaine 1% infiltrated to the right brachial. Sheath wire inserted through the brachial sheath. IV catheter out OTW. [place] MON catheter inserted. [place] wire inserted through the catheter. Oximetry samples were obtained. Normal venous range: 60-85%. Normal arterial range: 95-100%. Pressure measurements obtained. [place] out. Lidocaine 1% infiltrated to the right groin. Arterial access obtained with micropuncture set. A Right femoral angiogram was performed to determine safe placement of closure device. A 5 turkmen JL4 catheter in over wire. Catheter removed over the standard wire. A 5 turkmen JR4 catheter in over wire. Multiple views taken of right coronary artery. Catheter removed over the standard wire. 6 turkmen XB 3.5 guide catheter was inserted over the wire. Guide catheter out. A 5 turkmen JL4.5 catheter in over wire. Multiple views taken of left coronary artery. Catheter removed over the standard wire. Lidocaine 1% infiltrated to the right groin. A Angio-Seal VIP ([place]) was successful obtaining hemostatsis at the Right Femoral artery insertion site. A Manual Compression was successful obtaining hemostatsis at the Right Brachial Vein insertion site. Post Procedure: Pulses reassessed and unchanged. PERRLA. 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 No VTE prophylaxis required. Medication's Wasted: Lidocaine 1% = 1 mL. Medication's Wasted: Heparin = 1000 units. Medication's Wasted: Other = Fentanyl 50 mcg. Total IV fluids: 50 mL. Post-op diagnosis: LV Dysfunction. Complications: None. Estimated blood loss: 5mL-10mL. Responsiveness - Normal response to verbal stimuli; alert and oriented, PERRLA. Airway - Unaffected, no intervention required; spontaneous ventilation. Circulation: W/N/L, pulses unchanged. Nausea/Vomiting: No. Procedure completed. Patient transferred by stretcher to CPRU. Vital chart was stopped. Access Site Site: Right Brachial Vein Sheath Size: 6 Fr Hemostasis Method: Manual Compression Hemostasis Success: Successful Site: Right Femoral artery Sheath Size: 6 Fr Hemostasis Method: Angio-Seal VIP ([place]) Hemostasis Success: Successful Procedure Medications Start: 8:18 AM Stop: 8:18 AM Medication: Versed Amount: 1 mg Route: I.V. Start: 8:47 AM Stop: 8:47 AM Medication: Versed 1 mg and Fentanyl 25 mcg Amount: 1 Route: I.V. Start: 9:05 AM Stop: 9:05 AM Medication: Fentanyl Amount: 25 mcg Route: I.V. I, the attending physician, have reviewed and verified all procedure medications. Yes, all medications given per verbal order History/Risk Factors Hypertension: No Dyslipidemia: No Peripheral Arterial Disease (PAD): No Myocardial Infarction (NE): No Obesity: No Renal Disease: No Tobacco Use: Never Prior Interventions PCI: No CABG: No Valve Surgery: No Report Signatures Finalized by Shelly Claire MD on 02/06/2025 11:11 PM
[2025-01-21] MEDS: diphenhydrAMINE 50 mg Capsule PO (06:30)
[2025-01-21] MEDS: aspirin 325 mg Tablet PO (06:30)
--- NOTE | 2025-01-21 08:12 | W.PM.OPSUD ---
Surgery/Procedure H&P Update DATE OF PROCEDURE: January 21, 2025 DATE H&P PERFORMED: 01/07/25 H&P UPDATE INFORMATION: I have reviewed H&P completed within last 30 days, I have examined patient prior to procedure and No changes to prior documentation PREOP DIAGNOSIS: New onset of heart failure, LV dysfunction, history of VSD repair, shortnes PRIMARY INDICATION FOR PROCEDURE: Right and left heart PLANNED PROCEDURE: Operation Date: 01/21/25 07:00 Proposed Procedures p Cardiac Catheterization - RLHC w/w/o LV and rossi(Bilateral) - Shelly Claire MD PATIENT REASSESSED PRIOR TO SEDATION, WITH NO CHANGE NOTED: Yes PHYSICAL EXAM: alert, oriented x 3, clear to auscultation bilaterally, regular rate & rhythm and operative site marked AIRWAY EVAL/ANESTHESIA PLAN: normal airway, ASA II, Risks, benefits & alternatives of sedation and/or procedure discussed and Patient agrees to continue as planned ADDITIONAL INFORMATION: All risk-benefit and alternative for the procedure has been explained to the patient and mother by bedside patient understand 2% risk of stroke major bleed, patient understand 5 to 6% risk of contrast induced nephropathy urgent emergent vascular or bypass surgery hematoma and pseudoaneurysm. Patient would like to proceed with it.
[2025-01-21 08:55] LABS: Alveolar-Arterial Oxygen Gradi 7.7 mmHg (5-10); Arterial Blood Gas Hematocrit 48.7 % (42-52); Blood Gas Allen Test Pos; Blood Gas Operator Identificat MONRO; Blood Gas Sample Site PA; Blood Gas Sample Type Arterial; Carboxyhemoglobin 0.3 %THgb (0.4-20.1); HGB O2 Sat 58.1 % (95-100); Oxygen Device ROOM AIR; Total Hemoglobin 15.9 g/dL (14-18)
[2025-01-21 08:57] LABS: Alveolar-Arterial Oxygen Gradi 3.7 mmHg (5-10); Alveolar-Arterial Oxygen Gradi 7.7 mmHg (5-10); Arterial Blood Gas Hematocrit 33.6 % (42-52); Arterial Blood Gas Hematocrit 38.5 % (42-52); Blood Gas Operator Identificat MONRO; Blood Gas Sample Site AO; Blood Gas Sample Site RV; Blood Gas Sample Type Arterial; Carboxyhemoglobin 1.1 %THgb (0.4-20.1); Carboxyhemoglobin < 0.3 %THgb (0.4-20.1); HGB O2 Sat 60.4 % (95-100); HGB O2 Sat 92.6 % (95-100); Methemoglobin 0.3 % (0.4-1.5); Methemoglobin 1.2 % (0.4-1.5); Oxygen Device ROOM AIR; Total Hemoglobin 12.6 g/dL (14-18)
[2025-01-21 08:58] LABS: Alveolar-Arterial Oxygen Gradi 7.7 mmHg (5-10); Arterial Blood Gas Hematocrit 41.1 % (42-52); Blood Gas Operator Identificat MONRO; Blood Gas Sample Site RV; Blood Gas Sample Type Arterial; HGB O2 Sat 61.1 % (95-100); Methemoglobin 0.6 % (0.4-1.5); Oxygen Device ROOM AIR; Total Hemoglobin 13.4 g/dL (14-18)
--- NOTE | 2025-01-21 09:20 | PC.NURSE ---
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 Patient drowsy. Awakens to verbal stimuli. A & 0 x 3. playground monitor placed and vital signs obtained. Right femoral access site s/p Mynx Closure. Groin soft with no bleeding or hematoma noted. Dressing D/I. No other assessment changes noted from pre cath assessment. Sister, Tania, remains at beside. No concerns voiced at this time.
--- NOTE | 2025-01-21 09:25 | PC.NURSE ---
Addendum to previous note: Patient has a bulky pressure dressing to the right brachial area from the RHC procedure. No bleeding or hematoma noted. Also, a Mynx closure was charted to be in the right femoral access site. It is an Angioseal closure.
--- NOTE | 2025-01-21 13:30 | PC.NURSE ---
Patient up out of bed and ambulated around the unit without difficulty. He also used the restroom to void. He then went back to the room to sit in the recliner. Right femoral access site remains unchanged from previous assessments. Dressing dry and intact. Big bulky pressure dressing was removed from the right brachial area at 1300. No bleeding noted. A new 4 x 4 was applied to the site and loosely secured with coban. No other assessemnt changes noted. Plan for DC home in one hour. Vital signs stable.
--- NOTE | 2025-01-21 13:53 | PC.NURSE ---
Patient care transferred, Verbal report to Horacio Correia RN.
== END 2025-01-21 14:50 | disposition home or self-care (01) ==
PROVIDERS: PCP Family Medicine; Visit Provider Internal Medicine Cardiovascular Disease
DX: I50.32 Chronic diastolic (congestive) heart failure (principal); I25.10 Atherosclerotic heart disease of native coronary artery without angina pectoris; Z87.74 Personal history of (corrected) congenital malformations of heart and circulatory system; Q25.43 Congenital aneurysm of aorta; K21.9 Gastro-esophageal reflux disease without esophagitis
CPT/HCPCS: 36415; 82810; 93456; 99152; 99153; C1751; C1760; C1769; C1887; C1894; G0269; J1644; J2250; J3010; J3490; J7030; J9999; Q0163; Q9967

== ENCOUNTER → 2025-02-03 13:02 | Outpatient (BNVA) | payer MEDICARE, MEDICAID, SELFPAY ==
[2024-04-11 13:37] VITALS: BP 131/85; BMI 30.9
== END ==
PROVIDERS: PCP Family Medicine; Visit Provider Nurse Practitioner Family
DX: Z09 Encounter for follow-up examination after completed treatment for conditions other than malignant neoplasm (principal); I25.10 Atherosclerotic heart disease of native coronary artery without angina pectoris; I71.20 Thoracic aortic aneurysm, without rupture, unspecified; I50.32 Chronic diastolic (congestive) heart failure; Z78.9 Other specified health status; F20.9 Schizophrenia, unspecified; Z68.35 Body mass index [BMI] 35.0-35.9, adult
CPT/HCPCS: 99214

== ENCOUNTER → 2025-03-25 14:16 | Outpatient (BNVA) | payer MEDICARE, MEDICAID, SELFPAY ==
[2025-04-04 15:49] VITALS: BP 104/82; BMI 34.4
== END ==
PROVIDERS: PCP Family Medicine; Visit Provider Internal Medicine Cardiovascular Disease
DX: I42.8 Other cardiomyopathies (principal); E78.5 Hyperlipidemia, unspecified; R60.0 Localized edema; I10 Essential (primary) hypertension
CPT/HCPCS: 99214

== ENCOUNTER → 2025-04-02 14:22 | Outpatient (BNVA) | payer OTHER, SELFPAY ==
[2024-04-11 13:37] VITALS: BP 131/85; BMI 30.9
== END ==
PROVIDERS: PCP Family Medicine; Visit Provider Psychiatry & Neurology Psychiatry
DX: F20.89 Other schizophrenia (principal); F41.1 Generalized anxiety disorder; Z79.899 Other long term (current) drug therapy
CPT/HCPCS: 80061; 83036

== ENCOUNTER 2025-04-05 08:04 | Observation (INO) | payer MEDICARE, MEDICAID, SELFPAY ==
--- OUTSIDE RECORDS SUMMARY | 2017-03-13 05:30 | XMS_ITS | Continuity of Care Document ---
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 Role Phone Kaycee HERNANDEZ, Jeevan Unavailable Unavailab le Allergies, Adverse Reactions, Alerts Substance Reaction Status Criticality No Known Allergies Active No Inform ation Medications Medication Instructions Dosage Effective Dates (start - stop) Status Comments amoxicillin 500 mg capsule take 4 capsules before appt for Pre-med - Active [place] 5 mg-325 mg tablet take 1 tablet by oral route every 4 hours as needed for pain 1 tablet - Active MAGNESIUM (unknown strength) Not Available - Active DIVALPROEX SODIUM (unknown strength) take 2 tablet by oral route 2 times every day Not Available - Active BENZTROPINE MESYLATE (unknown strength) take 1 tablet by oral route 2 times every day Not Available - Active CITALOPRAM HBR (unknown strength) take 1 tablet by oral route every day Not Available - Active RISPERIDONE (unknown strength) take 2 milliliter by oral route 2 times every day Not Available - Active BUSPIRONE HCL (unknown strength) take 1 tablet by oral route 2 times every day Not Available - Active amoxicillin 500 mg capsule take 4 capsules before appt for Pre-med - No Longer Active amoxicillin 500 mg capsule take 4 capsules before appt for Pre-med - No Longer Active Procedures Procedure Date No Work Today/No Charge Extraction, Erupted Tooth Or Exposed Mckenna t (Elevati Extraction, Erupted Tooth Or Exposed Mckenna t (Elevati Extraction, Erupted Tooth Or Exposed Mckenna t (Elev Extraction, Erupted Tooth Or Exposed Mckenna t (Elevati EDR Approval Note Surgical Removal Of Erupted Tooth Requir ing Elevat Surgical Removal Of Erupted Tooth Requir ing Elevat EDR Approval Note Extraction, Erupted Tooth Or Exposed Mckenna t (Elevati Extraction, Erupted Tooth Or Exposed Mckenna t (Elevati Extraction, Erupted Tooth Or Exposed Mckenna t (Elevati Extraction, Erupted Tooth Or Exposed Mckenna t (Elevati EDR Approval Note Bitewings Two Films Intraoral Periapical First Film Intraoral Periapical Each Additional Film Intraoral Periapical Each Additional Film Intraoral Periapical Each Additional Film Intraoral Periapical Each Additional Film Panoramic Film Comprehensive Oral Evaluatio n New Or Established Perio Probing EDR Approval Note EDR Approval Note EDR Approval Note Advance Directives Directive Yes / No Effective Date File Name No Information Encounters Encounter Description Practice Location Reason(s) For Visit Diagnoses Date Provider Providers Copied on Encounter [facility], [id number], [id number], [place] tel:[phone] [facility] Encounter for dental exam and cleaning w/o abnormal findings 7 Kaycee Chew. [address] [place], [address], [place]. tel:[phone] Referring Provider: Jeevan Hong, [address] [place], [address]. tel:[phone] [facility], [id number] [place], [place], [id number], [place] tel:[phone] [facility] Encounter for dental exam and cleaning w/o abnormal findings Kiran Martin. [address] [place], [address], [place]. tel:[phone] Referring Provider: Mario Avalos, [address] [place], [address]. tel:[phone] [facility], [id number], [id number], [place] tel:[phone] [facility] Encounter for dental exam and cleaning w/o abnormal findings Kaycee Gupta. [address] [place], [address], [place]. tel:[phone] Referring Provider: Candy Marie, [address] [place], [address]. tel:[phone] [facility], [id number] 614[address]J[place], [id number], [place] tel:[phone] [facility] Encounter for dental exam and cleaning w/o abnormal findings Kiran Martin. [address] [place], [address], [place]. tel:[phone] Referring Provider: Mario Avalos, [address] [place], [address]. tel:[phone] Family History Family Member Type Diagnosis Age At Onset Sister Problem (finding) Payers Payer name Insurance type Covered green party ID irineo legibson(s) D Medicaid [id number] Social History Type Description Quantity Date Captured Comments Alcohol Use Details No Caffeine Use Details Unknown Tobacco Use Status No Information Smoking Status No Information Sex Male Sexual Orientation Heterosexual Gender Identity Male Chief Complaint And Reason For Visit No Information Reason For Referral Reason For Referral No Information History Of Present Illness Encounter Date Complaint History Of Prese nt Illness No Information Functional Status Date Functional Assessmen t No Information Instructions Date Instruction Additional Infor mation No Information Assessments Type Assessment Date No Information Patient Care Teams Name Effective Dates (start - stop) Status Members No Information
--- OUTSIDE RECORDS SUMMARY | 2017-03-13 05:30 | XMS_ITS | Continuity of Care Document ---
Author Organization [facility] Address [address] [id number] [address] Phone Care Team Providers Care Junior Financial Analyst Name Role Phone Kaycee HERNANDEZ, Jeevan Unavailable Unavailab le Allergies, Adverse Reactions, Alerts Substance Reaction Status Criticality No Known Allergies Active No Inform ation Medications Medication Instructions Dosage Effective Dates (start - stop) Status Comments amoxicillin 500 mg capsule take 4 capsules before appt for Pre-med - Active [place] 5 mg-325 mg tablet take 1 tablet [...] Diagnoses Date Provider Providers Copied on Encounter [facility], [id number] [id number], [id number], [place] tel:[phone] [facility] Encounter for dental exam and cleaning w/o abnormal findings 7 Kaycee Chew. [address] [place], [address], [place]. tel:[phone] Referring Provider: Jeevan Hong, [address] [place], [address]. tel:[phone] [facility], [id number] 864793[address] [place], [id number], [place] tel:[phone] [facility] Encounter for dental exam and cleaning w/o abnormal findings Kiran Martin. [address] [place], [address], [place]. tel:[phone] Referring Provider: Mario Avalos, [address] [place], [address]. tel:[phone] [facility], [id number] [place]162[place], [id number], [place] tel:[phone] [facility] Encounter for dental exam and cleaning w/o abnormal findings Kaycee Gupta. [address] [place], [address], [place]. tel:[phone] Referring Provider: Candy Marie, [address] [place], [address]. tel:[phone] [facility], [id number] 869[place], [id number], [place] tel:[phone] [facility] Encounter for dental exam and cleaning w/o abnormal findings Kiran Martin. [address] [place], [address], [place]. tel:[phone] Referring Provider: Mario Avalos, [address] [place], [address]. tel:[phone] Family History Family Member Type Diagnosis Age At Onset Sister Problem (finding) Payers Payer name Insurance type Covered alliance party ID irineo legibson(s) D Medicaid [id number] Social History Type Description Quantity Date Captured [...]
[2025-04-04 15:49] VITALS: BP 104/82; BMI 34.4
[2025-04-05] VITALS (7 sets, daily range): BP systolic 90–114; BP diastolic 49–64; PULSE 60–83; RESP 16–18; TEMP 36.6–36.9; O2SAT 92–99; BMI 36.6
--- NOTE | 2025-04-05 08:35 | XRR_ITS ---
PROCEDURE INFORMATION: Exam: XR Chest Exam date and time: 04/05/2025 8:44 AM Age: 60 years old Clinical indication: Dyspnea; Cough; Open wound to buttox TECHNIQUE: Imaging protocol: Radiologic exam of the chest. Views: 1 view. COMPARISON: CT angio chest [id number] 12/10/2024 11:57 AM FINDINGS: Lungs: Unremarkable. No consolidation. Pleural spaces: Unremarkable. No pleural effusion. No pneumothorax. Heart/Mediastinum: Unremarkable. No cardiomegaly. Bones/joints: Unremarkable. XR/XR chest 1V portable [id number] IMPRESSION: No acute findings.
--- NOTE | 2025-04-05 08:41 | W.ED.SKABFB ---
HPI - Skin/Abscess/Foreign Bdy General: Chief complaint: Skin/Abscess/Foreign Body Stated complaint: wound on right butt check Time Seen by Provider: 04/05/25 08:30 History of Present Illness: 60-year-old male presents to the emergency room reported a fever. Patient has a wound on his buttocks has had redness and inflammation spreading from that to the picture below on the chart. It has been going on for what they simply described as quite a while. They think it initially started from a insect bite. Last night he had a temp of 102 fever improved but he still has discomfort there he is mildly hypotensive on arrival. Patient has some mild cognitive decline and is currently living in assisted living his sister is his POA is at the bedside. He denies any abdominal pain chest pain or shortness of breath Associated symptoms: Reports chills and fever(s) Related Data Home Medications ?Medication ?Instructions ?Recorded ?Confirmed magnesium oxide 400 mg PO DAILY@1500 02/21/20 04/05/25 ewohakqrjoch-quk-yqqfm acid-vit 1 tab PO DAILY@08 01/08/21 04/05/25 K-lycop 400 mcg-20 mcg-370 mcg tablet (Men's 50 Plus Multivitamin) potassium gluconate 595 mg (99 mg) 595 mg PO QAM 07/13/21 04/05/25 tablet oxygen-air delivery systems 04/23/24 04/05/25 pantoprazole 40 mg tablet,delayed 40 mg PO QAM 07/22/24 04/05/25 release tamsulosin 0.4 mg capsule 0.4 mg PO BID 07/22/24 04/05/25 hydroxyzine HCl 25 mg tablet 50 mg PO BID PRN anxiety 01/20/25 04/05/25 clotrimazole-betamethasone 1 1 applic topical BID PRN Rash 04/05/25 04/05/25 %-0.05 % topical cream divalproex 250 mg tablet,delayed 250 mg PO QAM 04/05/25 04/05/25 release (Depakote) divalproex 500 mg tablet,delayed 500 mg PO QPM 04/05/25 04/05/25 release (Depakote) donepezil 23 mg tablet 23 mg PO BEDTIME 04/05/25 04/05/25 empagliflozin 10 mg tablet 10 mg PO QAM 04/05/25 04/05/25 (Jardiance) furosemide 20 mg tablet See Rx Instructions .Route 04/05/25 04/05/25 .COMPLEX PRN Edema ketoconazole 2 % shampoo See Rx Instructions .Route .COMPLEX 04/05/25 04/05/25 memantine 10 mg tablet 10 mg PO BID 04/05/25 04/05/25 potassium gluconate 595 mg (99 mg) See Rx Instructions .Route .COMPLEX 04/05/25 04/05/25 tablet Previous Rx's ?Medication ?Instructions ?Recorded acetaminophen 500 mg tablet 500 mg PO Q6H PRN fever or pain 02/16/23 (Tylenol Extra Strength) #90 tabs buspirone 15 mg tablet 15 mg PO BID #60 tabs 08/02/24 citalopram 40 mg tablet 40 mg PO DAILY@08 #30 tabs 08/02/24 furosemide 20 mg tablet 20 mg PO QAM 90 days #90 tabs 10/24/24 sacubitril 24 mg-valsartan 26 mg 1 tab PO BID #60 tabs 02/03/25 tablet (Entresto) risperidone 0.5 mg tablet 0.5 mg PO BID 30 days #60 tabs 02/14/25 Allergies Allergy/AdvReac Type Severity Reaction Status Date / Time No Known Allergies Allergy Verified 03/25/25 14:58 Review of Systems Const: Reports: fever(s) and chills Card: Denies: chest pain Resp: Denies: dyspnea GI: Denies: abdominal pain : Denies: dysuria, urinary frequency or urinary urgency Musc: Denies: neck pain or back pain Skin/Breast: Reports: erythema, skin tenderness and changing lesions PFSH ED PFSH: Medical History History of colon polyps Schizophrenia Poor compliance with medication Decreased independence with activities of daily living Generalized anxiety disorder Medication management BPH w urinary obs/LUTS Psychiatric care Acute dehydration Acute urinary retention Chronic hypokalemia Dementia in other diseases classified elsewhere without behavioral disturbance Chronic schizophrenia Surgical History Status post colonoscopy (01/26/21) Diverticulosis, transverse and sigmoid colon polyp H/O esophagogastroduodenoscopy (05/04/21) S/P VSD repair Family History Other CAD (coronary artery disease) Cancer Dementia in other diseases classified elsewhere without behavioral disturbance Diabetes Hypertension Psychiatric illness Stroke Social History Smoking and tobacco/nicotine status: never used tobacco/nicotine Second hand smoke exposure: Yes Alcohol intake: never Substance/Drug Use: never Adopted: No Caregiver/support person: Yes Lives independently: No Household members: other Details: assisted living facility - [facility] Housing: Assisted Living Facility Marital status: Single Number of children: 0 Number of grandchildren: 0 Highest education level completed: 10th Grade service: No Current occupational status: disabled Current occupational exposures/hazards: No Pets and animals: No Leisure activites: music, games and other Leisure activities details: watch tv, [employer], simin art, puzzle booksand PSR Sexually active: No Do you think of yourself as: Straight/Heterosexual Current gender identity: Male Monika/Anglican: Mu-Ism Special monika needs: No Agree to transfusion: Yes Physical Exam Const: COMMON NORMALS: no acute distress GENERAL APPEARANCE: cooperative and comfortable ORIENTATION/CONSCIOUSNESS: Yes awake HENMT: COMMON NORMALS: normocephalic, atraumatic and hearing grossly normal bilaterally HEAD & SCALP: normocephalic and atraumatic Resp: COMMON NORMALS: normal respiratory effort, No retractions, No use of accessory muscles and clear to auscultation bilaterally AUSCULTATION: clear to auscultation bilaterally Cardio: COMMON NORMALS: regular rate, regular rhythm and No murmurs present (Cardio) RATE: regular rate RHYTHM: regular rhythm GI: COMMON NORMALS: Soft to palpation and No hepatosplenomegaly present AUSCULTATION: Yes normoactive bowel sounds PALPATION: Yes Soft to palpation, No Tenderness to palpation present (GI), No Guarding due to palpation present (GI) and Yes No hepatosplenomegaly present Extremity: COMMON NORMALS: normal to inspection, capillary refill normal, no clubbing, cyanosis or edema, no calf tenderness and no pedal edema Psych: OTHER: Skin: COMMON NORMALS: no rashes or lesions noted GENERAL SKIN EXAM: no rashes or lesions noted Course Vital Signs: Vital signs: Vital Signs Temperature 98.5 F 04/05/25 08:15 Pulse Rate 62 04/05/25 13:11 Respiratory Rate 16 04/05/25 12:02 Blood Pressure 103/50 04/05/25 13:11 Pulse Oximetry 98 04/05/25 13:11 Oxygen Delivery Me thod Room Air 04/05/25 14:40 MDM - Skin/Abscess/Foreign Bdy Medicial Decision Making Failure of outpatient therapy will admit with vancomycin. Cultures done. Discussed with hospitalist orders written as blood pressure has been somewhat soft he was given sepsis bolus. Medical Records I reviewed the patient's medical records. Lab Data I reviewed the patient's lab results. 04/05/25 08:55 04/05/25 09:39 Radiology Impressions Chest X-Ray 04/05/25 08:35 IMPRESSION: No acute findings. Laboratory Results WBC 8.28 10^3/uL (3.29-11.43) 04/05/25 08:55 RBC 4.76 10^6/uL (3.85-5.65) 04/05/25 08:55 Hgb 13.10 g/dL (11.27-16.99) 04/05/25 08:55 Hct 43.4 % (37-53) 04/05/25 08:55 MCV 91.2 fl (82-101) 04/05/25 08:55 MCH 27.5 pg (27-33) 04/05/25 08:55 MCHC 30.2 g/dL (30-55) 04/05/25 08:55 RDW 14.8 % (12.1-15.1) 04/05/25 08:55 Plt Count 219 10^3/cmm (157-399) 04/05/25 08:55 MPV 9.7 fL (7.4-10.4) 04/05/25 08:55 Neut % (Auto) 73.9 % 04/05/25 08:55 Lymph % (Auto) 15.7 % 04/05/25 08:55 [place] % (Auto) 9.3 % 04/05/25 08:55 Eos % (Auto) 0.5 % 04/05/25 08:55 Baso % (Auto) 0.5 % 04/05/25 08:55 Neut # (Auto) 6.12 10^3/uL (1.8-7.7) 04/05/25 08:55 Lymph # (Auto) 1.3 10^3/uL (0.8-4.8) 04/05/25 08:55 [place] # (Auto) 0.8 10^3/uL (0.2-0.9) 04/05/25 08:55 Eos # (Auto) 0.0 10^3/uL (0.0-0.8) 04/05/25 08:55 Baso # (Auto) 0.0 10^3/uL (0.0-0.1) 04/05/25 08:55 Nucleated RBC % (auto) 0 % 04/05/25 08:55 Nucleated RBCs # 0.0 /100WBC 04/05/25 08:55 ESR 4 mm/hr (0-10) 04/05/25 08:55 Sodium 136 mmol/L (136-145) 04/05/25 09:39 Potassium 3.6 mmol/L (3.5-5.1) 04/05/25 09:39 Chloride 102 mmol/L (98-107) 04/05/25 09:39 Carbon Dioxide 22 mmol/L (22-29) 04/05/25 09:39 Anion Gap 15.6 (5-19) 04/05/25 09:39 BUN 16 mg/dL (8-23) 04/05/25 09:39 Creatinine 1.0 mg/dL (0.7-1.2) 04/05/25 09:39 GFR Calculation 75.7 mL/min (90-130) L 04/05/25 09:39 Glucose 82 mg/dL (65-115) 04/05/25 09:39 Calculated Osmolality 282 mOsm/kg (285-295) L 04/05/25 09:39 Lactic Acid 2.0 mmol/L (0.5-2.2) 04/05/25 08:55 Calcium 8.2 mg/dL (8.5-10.5) L 04/05/25 09:39 Total Bilirubin 0.4 mg/dL (0.15-1.2) 04/05/25 09:39 AST 15 U/L (0-40) 04/05/25 09:39 ALT 12 U/L (0-41) 04/05/25 09:39 Alkaline Phosphatase 70 U/L (40-130) 04/05/25 09:39 C-Reactive Protein 76.1 mg/L (0.0-4.9) H 04/05/25 09:39 Total Protein 6.4 g/dL (6.6-8.7) L 04/05/25 09:39 Albumin 3.4 g/dL (3.5-5.2) L 04/05/25 09:39 Globulin 3.0 g/dL (1.3-4.6) 04/05/25 09:39 Procalcitonin 0.11 ng/mL (0-0.5) 04/05/25 09:39 TSH 1.32 uIU/mL (0.27-4.20) 04/05/25 09:39 Urine Color Yellow (Yellow) 04/05/25 09:47 Urine Appearance Clear (CLEAR) 04/05/25 09:47 Urine pH 5.5 (5-7) 04/05/25 09:47 Ur Specific Pierce 1.016 (1.005-1.030) 04/05/25 09:47 Urine Protein Negative (Negative) 04/05/25 09:47 Urine Glucose (UA) 3+ (Normal) H 04/05/25 09:47 Urine Ketones Negative (Negative) 04/05/25 09:47 Urine Blood Trace (Negative) A 04/05/25 09:47 Urine Nitrate Negative (Negative) 04/05/25 09:47 Urine Bilirubin Negative (Negative) 04/05/25 09:47 Urine Urobilinogen 1.0 mg/dL (Negative) 04/05/25 09:47 Ur Leukocyte Esterase Negative (Negative) 04/05/25 09:47 Urine RBC 0-2 /hpf (0-2) 04/05/25 09:47 Urine WBC 0-5 /hpf (0-5) 04/05/25 09:47 Ur Squamous Epith Cells 0-5 /hpf (0-5) 04/05/25 09:47 Amorphous Sediment Not Reportable 04/05/25 09:47 Urine Bacteria None seen /hpf (NONE) 04/05/25 09:47 Hyaline Casts 0.40 /lpf 04/05/25 09:47 All radiology interpretation(s) finalized by discharge Discharge Plan Discharge Patient Disposition: Admitted As Inpatient Admit Provider: Shashank Martínez Clinical Impression: Cellulitis of buttock, right, Cognitive dysfunction, Chronic schizophrenia, CHF (congestive heart failure), CAD (coronary artery disease) Condition: Stable Coding Level of Care Code ED Slat Pickler for Carla Hyatt
[2025-04-05 09:06] LABS: Hematocrit 43.4 % (37-53); Hemoglobin 13.10 g/dL (11.27-16.99); Mean Corpuscular HGB Conc 30.2 g/dL (30-55); Mean Corpuscular Hemoglobin 27.5 pg (27-33); Mean Corpuscular Volume 91.2 fl (82-101); Nucleated Red Blood Cells % 0 %; Platelet Count 219 10^3/cmm (157-399); Red Blood Count 4.76 10^6/uL (3.85-5.65); White Blood Count 8.28 10^3/uL (3.29-11.43)
--- NOTE | 2025-04-05 09:06 | ECG_ITS ---
[facility] Test Date: 2025-04-05 Pat Name: Bryant Martin Department: Room: Gender: Male [employer] Developer: : 1965 Requested By: Antonio Marie Order Number: [id number] Nathan MD: Ajay Stokes M.D. Measurements Intervals [place] Rate: 62 P: 158 NJ: 155 QRS: 216 QRSD: 157 T: 155 QT: 437 QTc: 447 Interpretive Statements SINUS RHYTHM WITH OCCASIONAL VENTRICULAR PREMATURE COMPLEXES ARM LEADS REVERSED [INVERTED P AND QRS IN I] Compared to ECG 04/23/2024 11:29:20 Ventricular premature complex(es) now present Sinus bradycardia no longer present Left-axis deviation no longer present Right bundle-branch block no longer present T-wave abnormality no longer present Possible ischemia no longer present Electronically Signed On 04-08-2025 10:12:53 CDT by Ajay Stokes M.D. [email or web address]
[2025-04-05] MEDS: VANCOMYCIN ADD-Vantage 1,000 MG in 0.9% NaCl ADD-Vantage 250 ML 250 MG IV (09:18)
[2025-04-05] MEDS: SODIUM CHLORIDE 0.9% 3184.23 ML IV (09:18)
[2025-04-05 09:38] LABS: Lactic Sepsis W/Reflex 2.0 mmol/L (0.5-2.2)
[2025-04-05 09:55] LABS: Glucose Urine UA 3+ (Normal); Nitrate Urine Negative (Negative); Specific Gravity, Urine 1.016 (1.005-1.030)
[2025-04-05 09:57] LABS: Add Urine Microscopic? YES
[2025-04-05 10:02] LABS: Alanine Aminotransferase 12 U/L (0-41); Albumin Level 3.4 g/dL (3.5-5.2); Alkaline Phosphatase 70 U/L (40-130); Anion Gap 15.6 (5-19); Aspartate Amino Transferase 15 U/L (0-40); Blood Urea Nitrogen 16 mg/dL (8-23); Calcium 8.2 mg/dL (8.5-10.5); Carbon Dioxide 22 mmol/L (22-29); Chloride 102 mmol/L (98-107); Creatinine Clr Calc Pharmacy 88.9594; Globulin 3.0 g/dL (1.3-4.6); Glucose 82 mg/dL (65-115); Osmolality Calculated 282 mOsm/kg (285-295); Potassium 3.6 mmol/L (3.5-5.1); Sodium 136 mmol/L (136-145); Total Protein 6.4 g/dL (6.6-8.7)
--- NOTE | 2025-04-05 10:28 | PC.PHAR ---
Pt is from [facility].
--- NOTE | 2025-04-05 14:27 | CTR_ITS ---
PROCEDURE INFORMATION: Exam: CT Pelvis With Contrast Exam date and time: 04/05/2025 4:20 PM Age: 60 years old Clinical indication: Other: Concern for possible gleutal abscess TECHNIQUE: Imaging protocol: Computed tomography of the pelvis with contrast. Radiation optimization: All CT scans at this facility use at least one of these dose optimization techniques: automated exposure control; mA and/or kV adjustment per patient size (includes targeted exams where dose is matched to clinical indication); or iterative reconstruction. Contrast material: OMNI 350; Contrast volume: 100 ml; Contrast route: INTRAVENOUS (IV); COMPARISON: CT abdomen pelvis w con* [id number] 12/18/2020 11:38 AM RADIATION DOSE METRICS: Total DLP (mGy-cm): 867.31 FINDINGS: Intestine: No bowel lesions are identified to the extent included on today's field of view other than some sigmoid diverticulosis. Appendix: No evidence of appendicitis. Intraperitoneal space: Extra pelvic soft tissues show no evidence of abscess or inflammatory change. Lymph nodes: Unremarkable. No enlarged lymph nodes. Reproductive: Prostatomegaly is present. Urinary bladder: Normal. No mass. Bones/joints: Hyperlordotic lumbosacral curvature is identified with a grade 1 spondylolytic spondylolisthesis at L5-S1. Vacuum phenomenon at L5-S1 is noted. Soft tissues: There is a new, large, indirect, right inguinal hernia, containing mesentery and loops of small bowel. The hernia sac extends through a defect measuring 47.4 mm in diameter. The sac measures proximally 18 x 6.3 x 7.4 cm in diameter. No bowel incarceration is evident. CT/CT pelvis w con* [id number] IMPRESSION: 1. No evidence of gluteal soft tissue mass or abscess. 2. New, large indirect right inguinal hernia containing multiple loops of small bowel. There is no bowel incarceration. 3. Grade 1 spondylolytic spondylolisthesis at L5-S1. 4. Sigmoid diverticulosis without diverticulitis
--- NOTE | 2025-04-05 14:31 | PM.HP ---
Providers/Chief Complaint Admitting Physician: Shashank Martínez MD Primary Care Provider: Elizabeth Canchola MD Chief Complaint: wound on right butt check History of Present Illness History taken through chart review, discussion with assisted living home staff and patient Bryant Martin Jr is a 60 year old male with past medical history of congestive heart failure, VSD repair, last cardiac angiogram from December 2028 showing normal coronaries, assisted living resident, history of schizophrenia presents to the ER today because of worsening wound and cellulitis on his right buttock which has been ongoing for last few weeks being treated with localized wound care. As per the nursing staff from assisted living the wound has been worsening hence he was sent to the ER. Patient himself otherwise denies any nausea, vomiting, headache. As per nursing staff he has also been having high-grade fever up to 102 Fahrenheit for last 2 days. On presentation to the ER he was found to be hypotensive with blood pressure down to 90 systolic for which he required septic bolus after which blood pressures improved 200 systolic. Examination patient is awake and alert. Remains on room air. Review of Systems General: Reports: 10 or more systems reviewed and unremarkable except in HPI and below Const: Denies: fever(s), chills, body aches, change in appetite, change in weight, malaise, night sweats, diaphoresis, change in sleep pattern, daytime sleepiness or snoring Eyes: Denies: change in vision, blurry vision, photophobia, eye discomfort or eye discharge ENMT: Denies: throat pain, enlarged tonsils, hoarseness, mouth pain, oral sores, dry mouth, tinnitus, nasal congestion or post nasal drip Card: Denies: chest pain, palpitations, irregular heart rhythm, edema, swelling of feet/ankles, lightheadedness, syncope, pre-syncope, dyspnea on exertion, orthopnea, leg pain with exertion or acrocyanosis Resp: Denies: dyspnea, productive cough, non-productive cough, wheezing, stridor, pain on inspiration, change in phlegm color, hemoptysis or chest congestion GI: Denies: abdominal pain, nausea, vomiting, hematemesis, coffee ground emesis, dysphagia, heartburn, diarrhea, constipation, bloating, GI cramping, change in bowel habits, pain on defecation, hematochezia or melena : Denies: flank pain, difficulty urinating, dysuria, urinary frequency, urinary urgency, urinary hesitancy, urinary dribbling, difficulty starting urination, change in urine stream, nocturia or hematuria Musc: Denies: neck pain, back pain, extremity pain, joint pain, joint swelling, joint redness, joint stiffness or limited range of motion Skin/Breast: Reports: erythema, skin tenderness and changing lesions Neuro: Denies: headache(s), numbness in extremities, weakness in extremities, sensory changes, lack of coordination, difficulty walking, frequent falls, dizziness, vertigo, confusion, Slurred speech present, difficulty communicating thoughts or seizure-like activity Psych: Denies: anxiety, depression, mood swings, panic attacks, hopelessness or irritability Endo: Denies: polyuria, polydipsia, tired all the time, cold intolerance, excessive sweating, flushing or heat intolerance Thomas/Lymph: Denies: easy bruising or easy bleeding All/Imm: Denies: tongue swelling, facial swelling or acute wheezing Medications/Allergies Home Medications ?Medication ?Instructions ?Recorded ?Confirmed ?Last Taken ?Type magnesium oxide 400 mg PO DAILY@1500 02/21/20 04/05/25 04/04/25 History tkcbawbsoscb-ytg-jamae acid-vit 1 tab PO DAILY@08 01/08/21 04/05/25 04/05/25 History K-lycop 400 mcg-20 mcg-370 mcg tablet (Men's 50 Plus Multivitamin) potassium gluconate 595 mg (99 mg) 595 mg PO QAM 07/13/21 04/05/25 04/05/25 History tablet acetaminophen 500 mg tablet 500 mg PO Q6H PRN fever or pain 02/16/23 04/05/25 Unknown Rx (Tylenol Extra Strength) #90 tabs oxygen-air delivery systems 04/23/24 04/05/25 Unknown History pantoprazole 40 mg tablet,delayed 40 mg PO QAM 07/22/24 04/05/25 04/05/25 History release tamsulosin 0.4 mg capsule 0.4 mg PO BID 07/22/24 04/05/25 04/05/25 History buspirone 15 mg tablet 15 mg PO BID #60 tabs 08/02/24 04/05/25 04/05/25 Rx citalopram 40 mg tablet 40 mg PO DAILY@08 #30 tabs 08/02/24 04/05/25 04/05/25 Rx furosemide 20 mg tablet 20 mg PO QAM 90 days #90 tabs 10/24/24 04/05/25 04/05/25 Rx hydroxyzine HCl 25 mg tablet 50 mg PO BID PRN anxiety 01/20/25 04/05/25 Unknown History sacubitril 24 mg-valsartan 26 mg 1 tab PO BID #60 tabs 02/03/25 04/05/25 04/05/25 Rx tablet (Entresto) risperidone 0.5 mg tablet 0.5 mg PO BID 30 days #60 tabs 02/14/25 04/05/25 04/05/25 Rx clotrimazole-betamethasone 1 1 applic topical BID PRN Rash 04/05/25 04/05/25 Unknown History %-0.05 % topical cream divalproex 250 mg tablet,delayed 250 mg PO QAM 04/05/25 04/05/25 04/05/25 History release (Depakote) divalproex 500 mg tablet,delayed 500 mg PO QPM 04/05/25 04/05/25 04/04/25 History release (Depakote) donepezil 23 mg tablet 23 mg PO BEDTIME 04/05/25 04/05/25 04/04/25 History empagliflozin 10 mg tablet 10 mg PO QAM 04/05/25 04/05/25 04/05/25 History (Jardiance) furosemide 20 mg tablet See Rx Instructions .Route 04/05/25 04/05/25 Unknown History .COMPLEX PRN Edema ketoconazole 2 % shampoo See Rx Instructions .Route .COMPLEX 04/05/25 04/05/25 Unknown History memantine 10 mg tablet 10 mg PO BID 04/05/25 04/05/25 04/05/25 History potassium gluconate 595 mg (99 mg) See Rx Instructions .Route .COMPLEX 04/05/25 04/05/25 Unknown History tablet Allergies Allergy/AdvReac Type Severity Reaction Status Date / Time No Known Allergies Allergy Verified 03/25/25 14:58 PFSH Acute PFSH: Medical History (Updated 04/05/25 @ 14:36 by Shashank Martínez MD) Nodule of lower lobe of right lung Seen on CT abdomen pelvis. Follow-up [address] chest recommended, due May. History of CA 125 test History of colon polyps Schizophrenia Poor compliance with medication Decreased independence with activities of daily living Generalized anxiety disorder Medication management BPH w urinary obs/LUTS Psychiatric care Acute dehydration Acute urinary retention Chronic hypokalemia Dementia in other diseases classified elsewhere without behavioral disturbance Chronic schizophrenia Surgical History (Updated 04/05/25 @ 14:36 by Shashank Martínez MD) S/P matrixectomy of toe Status post colonoscopy (01/26/21) Diverticulosis, transverse and sigmoid colon polyp H/O esophagogastroduodenoscopy (01/26/21) S/P VSD repair Family History Other CAD (coronary artery disease) Cancer Dementia in other diseases classified elsewhere without behavioral disturbance Diabetes Hypertension Psychiatric illness Stroke Social History Smoking and tobacco/nicotine status: never used tobacco/nicotine Second hand smoke exposure: Yes Alcohol intake: never Substance/Drug Use: never Adopted: No Caregiver/support person: Yes Lives independently: No Household members: other Details: assisted living facility [facility] Housing: Assisted Living Facility Marital status: Single Number of children: 0 Number of grandchildren: 0 Highest education level completed: 10th Grade service: No Current occupational status: disabled Current occupational exposures/hazards: No Pets and animals: No Leisure activites: music, games and other Leisure activities details: watch tv, [employer], simin art, puzzle booksand P[employer] Sexually active: No Do you think of yourself as: Straight/Heterosexual Current gender identity: Male Monika/Oriental Orthodox: Rastafari Special monika needs: No Agree to transfusion: Yes Vitals/I&O/Wt Last Vital Signs Temp 98.5 F 04/05/25 08:15 Pulse 62 04/05/25 13:11 Resp 16 04/05/25 12:02 BP 103/50 04/05/25 13:11 Pulse Ox 98 04/05/25 13:11 O2 Del Method Room Air 04/05/25 12:02 04/04/25 04/05/25 04/05/25 22:59 06:59 14:59 Intake Total 3434.23 / 3434.23 Balance 3434.23 / 3434.23 Weight last 48 hrs Weight 106.141 kg Physical Exam Narrative: General: No acute distress, AO x3 HEENT: PERRLA, pupils bilaterally equal and reactive Chest: Normal vesicular breath sounds, no added sounds, equal good air entry bilaterally CVS: S1-S2 regular, no murmurs, no tachycardia, no gallops, no rubs Abdomen: Soft, nontender, no organomegaly, bowel sounds present Neuro: No focal deficits, no facial deformity, AO x3, power 5/5 in all limbs Psych: OTHER: Data 04/05/25 08:55 04/05/25 09:39 Micro: Microbiology 04/05/25 09:01 Blood Culture - Preliminary Blood SPECIMEN COLLECTED 04/05/25 08:55 Blood Culture - Preliminary Blood SPECIMEN COLLECTED A&P Assessment and plan 1. Cellulitis of buttock, right: Failure of outpatient treatment with local wound care. Has been getting worse as per nursing staff. Concern for localized cellulitis. Cannot rule out underlying abscess. Check ESR, CRP, blood culture, MRSA swab. Will do CT of the pelvis to rule out any abscess or collection. Start empirically on IV vancomycin and Zosyn. If MRSA swab is negative can discontinue vancomycin. Localized wound care with Optifoam. Frequent repositioning in bed. Some concerns of sepsis on admission due to hypotension and high-grade fever as an outpatient. Received septic bolus in the ER. Check lactic acid. NS at 75 cc/h. Patient does have a history of CHF. Watch for fluid overload. 2. CHF (congestive heart failure): Nonischemic cardiomyopathy. Last EF of 38% with global LV hypokinesia and grade 2 diastolic dysfunction. Patient possibly dehydrated on admission with hypotension. NS as above. Watch for fluid overload. Strict input output charting. 3. S/P VSD repair: 4. Decreased independence with activities of daily living: Plan: Hypertension: Goal blood pressure less than 140/90 mmHg with mean over 65. Hypotensive on admission. Hold off on home dose of Entresto for now. Will restart as per goal blood pressure. Continue other home chronic medications including BuSpar, citalopram, Depakote, donepezil. CODE STATUS: Full code Cardiac diet Protonix for PUD prophylaxis Heparin 5000 every 8 hourly for DVT prophylaxis. PDMP PDMP Reviewed: Not Reviewed Attestations Medical Necessity Statement*: Admission under observation for less than 2 midnights for management of cellulitis of right buttocks with failure to outpatient treatment in a patient with history of congestive heart failure due to nonischemic cardiomyopathy Diagnoses Cellulitis of buttock, right L03.317 CHF (congestive heart failure) I50.9 S/P VSD repair Z87.74 Decreased independence with activities of daily living Z78.9
[2025-04-05 15:07] LABS: Procalcitonin 0.11 ng/mL (0-0.5); Thyroid Stimulating Hormone 1.32 uIU/mL (0.27-4.20)
[2025-04-05 15:13] LABS: Iron 17 ug/dL (59-158); Total Iron Binding Capacity 286 mcg/dl; Unsaturated Iron Binding 269 ug/dL (112-347); Vitamin B12 969 pg/mL (232-1245)
[2025-04-05] MEDS: heparin 5,000 unit/mL INJ 1 mL 5000 UNIT SUBCUT ×2 (15:33→22:55)
[2025-04-05] MEDS: piperacillin-tazobactam 3.375 GM in sodium chloride 0.9% (plus) 50 ML IV ×2 (15:34→22:39)
[2025-04-05 16:00] LABS: Lactic Sepsis W/Reflex 1.2 mmol/L (0.5-2.2)
[2025-04-05] MEDS: iohexol 350 mg/mL 500 mL Btl (per mL) IV (16:25)
[2025-04-05 17:28] LABS: MRSA PCR OZH (swab) NOT DETECTED (Negative)
[2025-04-05] MEDS: divalproex DR 500 mg Tablet PO (17:37)
[2025-04-06] VITALS: BP 110/74; PULSE 59; RESP 16; TEMP 36.7; O2SAT 96
[2025-04-06 02:04] LABS: Hematocrit 35.7 % (37-53); Hemoglobin 11.00 g/dL (11.27-16.99); Mean Corpuscular HGB Conc 30.8 g/dL (30-55); Mean Corpuscular Hemoglobin 26.8 pg (27-33); Mean Corpuscular Volume 86.9 fl (82-101); Nucleated Red Blood Cells % 0 %; Platelet Count 179 10^3/cmm (157-399); Red Blood Count 4.11 10^6/uL (3.85-5.65); White Blood Count 6.35 10^3/uL (3.29-11.43)
[2025-04-06 02:27] LABS: Alanine Aminotransferase 13 U/L (0-41); Albumin Level 3.2 g/dL (3.5-5.2); Alkaline Phosphatase 67 U/L (40-130); Anion Gap 14.2 (5-19); Aspartate Amino Transferase 18 U/L (0-40); Blood Urea Nitrogen 15 mg/dL (8-23); Calcium 7.8 mg/dL (8.5-10.5); Carbon Dioxide 24 mmol/L (22-29); Chloride 110 mmol/L (98-107); Creatinine Clr Calc Pharmacy 88.9594; Globulin 2.5 g/dL (1.3-4.6); Glucose 114 mg/dL (65-115); Magnesium 2.2 mg/dL (1.7-2.3); Osmolality Calculated 300 mOsm/kg (285-295); Potassium 4.2 mmol/L (3.5-5.1); Sodium 144 mmol/L (136-145); Total Protein 5.7 g/dL (6.6-8.7)
[2025-04-06 02:32] LABS: Procalcitonin 0.09 ng/mL (0-0.5)
[2025-04-06 04:00] VITALS: BP 99/62; PULSE 72; RESP 20; TEMP 36.7; O2SAT 93
[2025-04-06] MEDS: heparin 5,000 unit/mL INJ 1 mL 5000 UNIT SUBCUT (05:32)
[2025-04-06] MEDS: piperacillin-tazobactam 3.375 GM in sodium chloride 0.9% (plus) 50 ML IV (06:08)
[2025-04-06 07:52] VITALS: BP 104/61; PULSE 52; RESP 17; TEMP 36.7; O2SAT 96
--- NOTE | 2025-04-06 10:34 | PM.DCS ---
Discharge Providers Date of Admission: 04/05/25 14:22 Date of Discharge: April 06, 2025 Attending Provider at Admission: Shashank Martínez MD Attending Provider at Discharge: Shashank Martínez MD Primary Care Provider: Elizabeth Canchola MD Diagnoses at Discharge Discharge Diagnosis 1. Cellulitis of buttock, right: 2. Chronic diastolic congestive heart failure: 3. S/P VSD repair: 4. Decreased independence with activities of daily living: Reason for Visit Reason for Visit: wound on right butt check Brief History: History taken through chart review, discussion with assisted living home staff and patient Bryant Martin Jr is a 60 year old male with past medical history of congestive heart failure, VSD repair, last cardiac angiogram from December 2028 showing normal coronaries, assisted living resident, history of schizophrenia presents to the ER today because of worsening wound and cellulitis on his right buttock which has been ongoing for last few weeks being treated with localized wound care. As per the nursing staff from the [facility] the wound has been worsening hence he was sent to the ER. Patient himself otherwise denies any nausea, vomiting, headache. As per nursing staff he has also been having high-grade fever up to 102 Fahrenheit for last 2 days. On presentation to the ER he was found to be hypotensive with blood pressure down to 90 systolic for which he required septic bolus after which blood pressures improved to 100 systolic. Examination patient is awake and alert. Remains on room air. Hospital Course Hospital Course Patient was admitted to the hospital further evaluation and management of cellulitis of right buttock. CT pelvis was done which ruled out abscess. He was started on broad-spectrum antibiotics. He remained hemodynamically stable during hospitalization. He was found to have inguinal hernia along with bowel loops without incarceration for which surgery was consulted. Hernia was reduced and he was advised to follow-up as an outpatient. He has been discharged in hemodynamically stable condition back to assisted living on oral Augmentin and Levaquin for 7 days with local wound care with advised to follow-up with primary care team within next 1 week and surgical team in 2 weeks. Physical Exam Narrative: General: No acute distress, AO x3 HEENT: PERRLA, pupils bilaterally equal and reactive Chest: Normal vesicular breath sounds, no added sounds, equal good air entry bilaterally CVS: S1-S2 regular, no murmurs, no tachycardia, no gallops, no rubs Abdomen: Soft, nontender, no organomegaly, bowel sounds present Neuro: No focal deficits, no facial deformity, AO x3, power 5/5 in all limbs Psych: OTHER: Discharge Data Studies Completed and Pending Completed Studies During Hospitalization Category Date Time Status CT pelvis w con* [id number] Routine Cat Scan 04/05/25 14:27 Completed XR chest 1V portable [id number] Stat Exams 04/05/25 08:35 Completed Pending at discharge Category Date Time Status Blood Culture Stat Lab 04/05/25 09:01 Results Complete Blood Count w/Auto AM LABS Lab 04/07/25 04:00 Ordered Complete Blood Count w/Auto AM LABS Lab 04/08/25 04:00 Ordered Comprehensive Metabolic Panel AM LABS Lab 04/07/25 04:00 Ordered Comprehensive Metabolic Panel AM LABS Lab 04/08/25 04:00 Ordered Magnesium AM LABS Lab 04/07/25 04:00 Ordered Magnesium AM LABS Lab 04/08/25 04:00 Ordered Phosphorus AM LABS Lab 04/07/25 04:00 Ordered Phosphorus AM LABS Lab 04/08/25 04:00 Ordered Radiology Impressions Chest X-Ray 04/05/25 08:35 IMPRESSION: No acute findings. Pelvis CT 04/05/25 14:27 IMPRESSION: 1. No evidence of gluteal soft tissue mass or abscess. 2. New, large indirect right inguinal hernia containing multiple loops of small bowel. There is no bowel incarceration. 3. Grade 1 spondylolytic spondylolisthesis at L5-S1. 4. Sigmoid diverticulosis without diverticulitis Microbiology 04/05/25 09:01 Blood Blood Culture - Preliminary NEGATIVE TO DATE 04/05/25 08:55 Blood Blood Culture - Preliminary NEGATIVE TO DATE Laboratory Results WBC 6.35 10^3/uL (3.29-11.43) 04/06/25 01:48 RBC 4.11 10^6/uL (3.85-5.65) 04/06/25 01:48 Hgb 11.00 g/dL (11.27-16.99) L 04/06/25 01:48 Hct 35.7 % (37-53) L 04/06/25 01:48 MCV 86.9 fl (82-101) 04/06/25 01:48 MCH 26.8 pg (27-33) L 04/06/25 01:48 MCHC 30.8 g/dL (30-55) 04/06/25 01:48 RDW 14.6 % (12.1-15.1) 04/06/25 01:48 Plt Count 179 10^3/cmm (157-399) 04/06/25 01:48 MPV 9.5 fL (7.4-10.4) 04/06/25 01:48 Neut % (Auto) 57.8 % 04/06/25 01:48 Lymph % (Auto) 23.3 % 04/06/25 01:48 [place] % (Auto) 14.2 % 04/06/25 01:48 Eos % (Auto) 3.9 % 04/06/25 01:48 Baso % (Auto) 0.6 % 04/06/25 01:48 Neut # (Auto) 3.67 10^3/uL (1.8-7.7) 04/06/25 01:48 Lymph # (Auto) 1.5 10^3/uL (0.8-4.8) 04/06/25 01:48 [place] # (Auto) 0.9 10^3/uL (0.2-0.9) 04/06/25 01:48 Eos # (Auto) 0.3 10^3/uL (0.0-0.8) 04/06/25 01:48 Baso # (Auto) 0.0 10^3/uL (0.0-0.1) 04/06/25 01:48 Nucleated RBC % (auto) 0 % 04/06/25 01:48 Nucleated RBCs # 0.0 /100WBC 04/06/25 01:48 ESR 4 mm/hr (0-10) 04/05/25 08:55 Sodium 144 mmol/L (136-145) 04/06/25 01:48 Potassium 4.2 mmol/L (3.5-5.1) 04/06/25 01:48 Chloride 110 mmol/L (98-107) H 04/06/25 01:48 Carbon Dioxide 24 mmol/L (22-29) 04/06/25 01:48 Anion Gap 14.2 (5-19) 04/06/25 01:48 BUN 15 mg/dL (8-23) 04/06/25 01:48 Creatinine 1.0 mg/dL (0.7-1.2) 04/06/25 01:48 GFR Calculation 75.7 mL/min (90-130) L 04/06/25 01:48 Glucose 114 mg/dL (65-115) 04/06/25 01:48 Calculated Osmolality 300 mOsm/kg (285-295) H 04/06/25 01:48 Lactic Acid 1.2 mmol/L (0.5-2.2) 04/05/25 15:29 Calcium 7.8 mg/dL (8.5-10.5) L 04/06/25 01:48 Phosphorus 3.8 mg/dL (2.5-4.5) 04/06/25 01:48 Magnesium 2.2 mg/dL (1.7-2.3) 04/06/25 01:48 Iron 17 ug/dL (59-158) L 04/05/25 09:39 TIBC 286 mcg/dl 04/05/25 09:39 % Saturation 5.9 % (20-50) L 04/05/25 09:39 Unsat Iron Binding 269 ug/dL (112-347) 04/05/25 09:39 Total Bilirubin 0.3 mg/dL (0.15-1.2) 04/06/25 01:48 AST 18 U/L (0-40) 04/06/25 01:48 ALT 13 U/L (0-41) 04/06/25 01:48 Alkaline Phosphatase 67 U/L (40-130) 04/06/25 01:48 C-Reactive Protein 76.1 mg/L (0.0-4.9) H 04/05/25 09:39 Total Protein 5.7 g/dL (6.6-8.7) L 04/06/25 01:48 Albumin 3.2 g/dL (3.5-5.2) L 04/06/25 01:48 Globulin 2.5 g/dL (1.3-4.6) 04/06/25 01:48 Vitamin B12 969 pg/mL (232-1245) 04/05/25 09:39 Folate > 20.0 ng/mL (4.5-32.2) 04/06/25 01:48 Procalcitonin 0.09 ng/mL (0-0.5) 04/06/25 01:48 TSH 1.32 uIU/mL (0.27-4.20) 04/05/25 09:39 Urine Color Yellow (Yellow) 04/05/25 09:47 Urine Appearance Clear (CLEAR) 04/05/25 09:47 Urine pH 5.5 (5-7) 04/05/25 09:47 Ur Specific [place] 1.016 (1.005-1.030) 04/05/25 09:47 Urine Protein Negative (Negative) 04/05/25 09:47 Urine Glucose (UA) 3+ (Normal) H 04/05/25 09:47 Urine Ketones Negative (Negative) 04/05/25 09:47 Urine Blood Trace (Negative) A 04/05/25 09:47 Urine Nitrate Negative (Negative) 04/05/25 09:47 Urine Bilirubin Negative (Negative) 04/05/25 09:47 Urine Urobilinogen 1.0 mg/dL (Negative) 04/05/25 09:47 Ur Leukocyte Esterase Negative (Negative) 04/05/25 09:47 Urine RBC 0-2 /hpf (0-2) 04/05/25 09:47 Urine WBC 0-5 /hpf (0-5) 04/05/25 09:47 Ur Squamous Epith Cells 0-5 /hpf (0-5) 04/05/25 09:47 Amorphous Sediment Not Reportable 04/05/25 09:47 Urine Bacteria None seen /hpf (NONE) 04/05/25 09:47 Hyaline Casts 0.40 /lpf 04/05/25 09:47 Nasal MRSA (PCR) Not detected (Negative) 04/05/25 15:40 Vitals Last Vital Signs Temp 98.1 F 04/06/25 07:52 Pulse 52 L 04/06/25 07:52 Resp 17 04/06/25 07:52 BP 104/61 04/06/25 07:52 Pulse Ox 96 04/06/25 07:52 O2 Del Method Room Air 04/06/25 07:52 Discharge Plan Discharge Patient Disposition: Home Condition: Stable Prescriptions: New amoxicillin-pot clavulanate 875-125 mg tablet 1 tab PO BID 7 Days Qty: 14 0RF levofloxacin 750 mg tablet 750 mg PO Q24H 7 Days Qty: 7 0RF Continued Men's 50 Plus Multivitamin 400-20-370 mcg tablet 1 tab PO DAILY@08 magnesium oxide 250 mg magnesium tablet 400 mg PO DAILY@1500 buspirone 15 mg tablet 15 mg PO BID Qty: 60 5RF citalopram 40 mg tablet 40 mg PO DAILY@08 Qty: 30 5RF Entresto 24-26 mg tablet 1 tab PO BID Qty: 60 2RF (DME) oxygen-air delivery systems Device See Rx Instructions .Route Rx Instructions: As directed acetaminophen [Tylenol Extra Strength] 500 mg tablet 500 mg PO Q6H PRN (Reason: fever or pain) Qty: 90 0RF risperidone 0.5 mg tablet 0.5 mg PO BID 30 Days Qty: 60 3RF tamsulosin 0.4 mg capsule 0.4 mg PO BID pantoprazole 40 mg tablet,delayed release (DR/EC) 40 mg PO QAM hydroxyzine HCl 25 mg tablet 50 mg PO BID PRN (Reason: anxiety) memantine 10 mg tablet 10 mg PO BID ketoconazole 2 % Shampoo See Rx Instructions .ROUTE .COMPLEX Rx Instructions: Apply shampoo 3 times weekly to daily with shower. Wash abdomen rash and face/lopez due to seborrheic dermatitis. furosemide 20 mg tablet See Rx Instructions .ROUTE .COMPLEX PRN (Reason: Edema) Rx Instructions: Take 1 tablet by mouth daily as needed if weight gain of more than 3lbs in 1 day or 5lbs in 1 week. potassium gluconate 595 mg (99 mg) Tablet See Rx Instructions .ROUTE .COMPLEX Rx Instructions: Take 1 tablet by mouth daily as needed if weight is more than 3lbs in 1 day or 5lbs in 1 week. divalproex [Depakote] 250 mg tablet,delayed release (DR/EC) 250 mg PO QAM divalproex [Depakote] 500 mg tablet,delayed release (DR/EC) 500 mg PO QPM clotrimazole-betamethasone 1-0.05 % cream 1 applic topical BID PRN (Reason: Rash) donepezil 23 mg tablet 23 mg PO BEDTIME Jardiance 10 mg tablet 10 mg PO QAM Discontinued potassium gluconate 595 mg (99 mg) tablet 595 mg PO QAM furosemide 20 mg tablet 20 mg PO QAM 90 Days Qty: 90 2RF Discharge Order = DC NOW: Discharge Order (Routine); Ordered 04/06/25 Ordered By: Shashank Martínez Referrals: Elizabeth Canchola MD [Primary Care Provider, [facility]] - 1 week Referral Note: We have notified your physician's clinic of the need for a follow-up appointment to be scheduled. If you have not heard from them within the next 2 business days, please call them directly. Bryant Ritchie MD [Physician, General Surgery] - 2 weeks Referral Note: right inguinal hernia with bowel loops Discharge Diet: Cardiac Discharge Activity: Resume usual activity and Increase activity as tolerated Patient Instructions: Opioid Safety, Patient Portal & Angelo Instructions Activity Restrictions/Additional Instructions: Continue with local wound care with Optifoam. Frequent repositioning. Take Augmentin and Levaquin which are the antibiotics for 7 days. Follow-up with a primary care provider within next 1 week. He should follow-up with surgical team as an outpatient for further evaluation and management of inguinal hernia Discharge Attestations Time Spent in Discharge Care*: greater than 30 min Specific Discharge Activities: educating patient, discussing with pcp/other providers, discussing with pillowcase cleaner/social workers/dc planners, documenting/other paperwork and evaluating patient/reviewing data Status at Discharge: Cognitive status at discharge: mildly impaired cognition, Behavioral status at discharge: cooperative, Functional status at discharge: uses cane/walker, Overall status at discharge: patient is progressing back to baseline Quality Metrics Clinical Quality Measures [ No reported AMI, CVA or VTE this stay] Coding Level of Care Code 12441 Total time (in minutes) for Discharge: 65 Diagnoses Cellulitis of buttock, right L03.317 Chronic diastolic congestive heart failure I50.32 Heart failure type: diastolic Heart failure chronicity: chronic S/P VSD repair Z87.74 Decreased independence with activities of daily living Z78.9
[2025-04-06 11:15] VITALS: BP 132/79; PULSE 56; RESP 17; TEMP 36.6; O2SAT 96
--- NOTE | 2025-04-06 11:37 | PM.CONSULT ---
Providers/Reason For Consult Consulting Physician/Specialty*: Jes Connor, DO - General Surgery Reason for Consult*: He was found to have inguinal hernia along with bowel loops without incarceration. Requesting Physician: Dr. Pacheco Attending Physician: Shashank Martínez MD Primary Care Provider: Elizabeth Canchola MD History of Present Illness History of Present Illness Bryant Martin Jr is a 60 year old male who was admitted with cellulitis of the right buttock. A right sided scrotal inguinal hernia was found incidentally on CT. The patient stated that he has had the hernia for a long time and that he is able to push it back in. It does not cause him pain or discomfort. He has regular bowel movements. Apparently, he has a history of Schizophrenia and lives in an assisted living center. Review of Systems General: Reports: 10 or more systems reviewed and unremarkable except in HPI and below GI: Denies: abdominal pain, nausea, vomiting or change in bowel habits Medications/Allergies Home Medications ?Medication ?Instructions ?Recorded ?Confirmed ?Last Taken ?Type magnesium oxide 400 mg PO DAILY@1500 02/21/20 04/05/25 04/04/25 History [id number]-slz-[id number] acid-vit 1 tab PO DAILY@08 01/08/21 04/05/25 04/05/25 History K-lycop 400 mcg-20 mcg-370 mcg tablet (Men's 50 Plus Multivitamin) potassium gluconate 595 mg (99 mg) 595 mg PO QAM 07/13/21 04/05/25 04/05/25 History tablet acetaminophen 500 mg tablet 500 mg PO Q6H PRN fever or pain 02/16/23 04/05/25 Unknown Rx (Tylenol Extra Strength) #90 tabs oxygen-air delivery systems 04/23/24 04/05/25 Unknown History pantoprazole 40 mg tablet,delayed 40 mg PO QAM 07/22/24 04/05/25 04/05/25 History release tamsulosin 0.4 mg capsule 0.4 mg PO BID 07/22/24 04/05/25 04/05/25 History buspirone 15 mg tablet 15 mg PO BID #60 tabs 08/02/24 04/05/25 04/05/25 Rx citalopram 40 mg tablet 40 mg PO DAILY@08 #30 tabs 08/02/24 04/05/25 04/05/25 Rx furosemide 20 mg tablet 20 mg PO QAM 90 days #90 tabs 10/24/24 04/05/25 04/05/25 Rx hydroxyzine HCl 25 mg tablet 50 mg PO BID PRN anxiety 01/20/25 04/05/25 Unknown History sacubitril 24 mg-valsartan 26 mg 1 tab PO BID #60 tabs 02/03/25 04/05/25 04/05/25 Rx tablet (Entresto) risperidone 0.5 mg tablet 0.5 mg PO BID 30 days #60 tabs 02/14/25 04/05/25 04/05/25 Rx clotrimazole-betamethasone 1 1 applic topical BID PRN Rash 04/05/25 04/05/25 Unknown History %-0.05 % topical cream divalproex 250 mg tablet,delayed 250 mg PO QAM 04/05/25 04/05/25 04/05/25 History release (Depakote) divalproex 500 mg tablet,delayed 500 mg PO QPM 04/05/25 04/05/25 04/04/25 History release (Depakote) donepezil 23 mg tablet 23 mg PO BEDTIME 04/05/25 04/05/25 04/04/25 History empagliflozin 10 mg tablet 10 mg PO QAM 04/05/25 04/05/25 04/05/25 History (Jardiance) furosemide 20 mg tablet See Rx Instructions .Route 04/05/25 04/05/25 Unknown History .COMPLEX PRN Edema ketoconazole 2 % shampoo See Rx Instructions .Route .COMPLEX 04/05/25 04/05/25 Unknown History memantine 10 mg tablet 10 mg PO BID 04/05/25 04/05/25 04/05/25 History potassium gluconate 595 mg (99 mg) See Rx Instructions .Route .COMPLEX 04/05/25 04/05/25 Unknown History tablet Allergies Allergy/AdvReac Type Severity Reaction Status Date / Time No Known Allergies Allergy Verified 03/25/25 14:58 Current Medications Generic Name Dose Route Start Last Admin Trade Name Freq PRN Reason Stop Dose Admin Buspirone HCl 15 mg 04/05/25 18:00 04/06/25 08:43 Buspirone 10 Mg Tablet PO 15 mg BID SIGRID Administration Citalopram Hydrobromide 40 mg 04/06/25 08:00 04/06/25 08:42 Citalopram 20 Mg Tablet PO 40 mg DAILY@08 SIGRID Administration Divalproex Sodium 250 mg 04/06/25 06:00 04/06/25 05:[address] 250 Mg Tablet PO 250 mg QAM SIGRID Administration Divalproex Sodium 500 mg 04/05/25 18:00 04/05/25 17:[address] 500 Mg Tablet PO 500 mg QPM SIGRID Administration Docusate Sodium 100 mg 04/05/25 18:00 04/06/25 08:42 Docusate Sodium 100 Mg Capsule PO 100 mg BID SIGRID Administration Heparin Sodium (Porcine) 5,000 unit 04/05/25 14:30 04/06/25 05:32 Heparin 5,000 Unit/Ml Inj 1 Ml SUBCUT 5,000 unit Q8H SIGRID Administration Piperacillin Sod/Tazobactam 50 mls @ 12.5 mls/hr 04/05/25 15:00 04/06/25 06:08 Sod 3.375 gm/ Sodium Chloride IV 12.5 mls/hr Q8H SIGRID Administration Memantine 10 mg 04/05/25 18:00 04/06/25 08:43 Memantine 5 Mg Tablet PO 10 mg BID SIGRID Administration Pantoprazole Sodium 40 mg 04/06/25 06:00 04/06/25 05:[address] 40 Mg Tablet PO 40 mg QAM SIGRID Administration Risperidone 0.5 mg 04/05/25 18:00 04/06/25 08:42 Risperidone 0.25 Mg Tablet PO 0.5 mg BID SIGRID Administration Tamsulosin HCl 0.4 mg 04/05/25 18:00 04/06/25 08:42 Tamsulosin 0.4 Mg Capsule PO 0.4 mg BID SIGRID Administration PFSH Acute PFSH: Medical History (Updated 04/06/25 @ 11:51 by Jes Connor MD) Nodule of lower lobe of right lung Seen on CT abdomen pelvis. Follow-up [address] chest recommended, due May. History of CA 125 test History of colon polyps Schizophrenia Poor compliance with medication Decreased independence with activities of daily living Generalized anxiety disorder Medication management BPH w urinary obs/LUTS Psychiatric care Acute dehydration Acute urinary retention Chronic hypokalemia Dementia in other diseases classified elsewhere without behavioral disturbance Chronic schizophrenia Surgical History (Updated 04/05/25 @ 14:36 by Shashank Martínez MD) S/P matrixectomy of toe Status post colonoscopy (01/26/21) Diverticulosis, transverse and sigmoid colon polyp H/O esophagogastroduodenoscopy (01/26/21) S/P VSD repair Family History Other CAD (coronary artery disease) Cancer Dementia in other diseases classified elsewhere without behavioral disturbance Diabetes Hypertension Psychiatric illness Stroke Social History Smoking and tobacco/nicotine status: never used tobacco/nicotine Second hand smoke exposure: Yes Alcohol intake: never Substance/Drug Use: never Adopted: No Caregiver/support person: Yes Lives independently: No Household members: other Details: assisted living facility - [facility] Housing: Assisted Living Facility Marital status: Single Number of children: 0 Number of grandchildren: 0 Highest education level completed: 10th Grade service: No Current occupational status: disabled Current occupational exposures/hazards: No Pets and animals: No Leisure activites: music, games and other Leisure activities details: watch tv, [employer], simin art, puzzle booksand [employer] Sexually active: No Do you think of yourself as: Straight/Heterosexual Current gender identity: Male Monika/Caodaism: Restorationist Special monika needs: No Agree to transfusion: Yes Vitals/I&O/Wt Last Vital Signs Temp 97.8 F 04/06/25 11:15 Pulse 56 L 04/06/25 11:15 Resp 17 04/06/25 11:15 BP 132/79 04/06/25 11:15 Pulse Ox 96 04/06/25 11:15 O2 Del Method Room Air 04/06/25 11:15 04/05/25 04/06/25 04/06/25 22:59 06:59 14:59 Intake Total 770.000 / 4204.230 381 / 4585.230 360 / 360 Balance 770.000 / 4204.230 381 / 4585.230 360 / 360 Weight last 48 hrs Weight 238 lb 8 oz Weight 234 lb Physical Exam Const: COMMON NORMALS: no acute distress, alert and well nourished Chest: COMMONS NORMALS: normal inspection of the chest Resp: COMMON NORMALS: normal respiratory effort and No use of accessory muscles GI: COMMON NORMALS: Soft to palpation and non-tender PALPATION: Yes Soft to palpation : OTHER: Large right sides scrotal hernia - soft, non-tender, non-firm, non-erythematous with no overlying discoloration. The hernia contents were easily manually reducible. Neuro: SENSORIUM/ORIENTATION: Yes alert Data 04/06/25 01:48 04/06/25 01:48 Micro: Microbiology 04/05/25 09:01 Blood Culture - Preliminary Blood NEGATIVE TO DATE 04/05/25 08:55 Blood Culture - Preliminary Blood NEGATIVE TO DATE A&P Assessment and plan 1. Inguinal hernia of right side without obstruction or gangrene: -- Although not noted in a 2020 CT - there was a small fat-containing right inguinal hernia in 2020 per my review of images. -- Per CT yesterday: Soft tissues: There is a new, large, indirect, right inguinal hernia, containing mesentery and loops of small bowel. The hernia sac extends through a defect measuring 47.4 mm in diameter. The sac measures proximally 18 x 6.3 x 7.4 cm in diameter. No bowel incarceration is evident. -- I agree, that the hernia neck/defect is approx. 5 cm in diameter, suggesting that this is a large chronic inguinal hernia. In this scenario, the wide neck of the hernia is in this patient's favor, as it is easy to reduce the hernia contents manually and he does not require emergency surgery. He does not currently have a bowel obstruction or sign of strangulation or bowel ischemia. -- The patient has not sought treatment for the right inguinal hernia and he is not sure why (?). -- I recommend elective/outpatient surgical evaluation of the right inguinal hernia. If the patient has signs of obstruction, severe groin pain, abdominal distension, nausea, vomiting, severe abdominal pain, of course he would need to go to the ED for acute evaluation. PDMP PDMP Reviewed: Not Reviewed Coding Level of Care Code Acute Code for Chg Fwd Diagnoses Inguinal hernia of right side without obstruction or gangrene K40.90
== END 2025-04-06 15:40 | disposition home or self-care (01) ==
LOC: ER 08:48 → MEDSURG 15:14
PROVIDERS: Admitting Provider Student in an Organized Health Care Education/Training Program; Emergency Provider Family Medicine; PCP Family Medicine; Visit Provider Student in an Organized Health Care Education/Training Program
DX: L03.317 Cellulitis of buttock (principal); I50.32 Chronic diastolic (congestive) heart failure; K40.90 Unilateral inguinal hernia, without obstruction or gangrene, not specified as recurrent; Z87.74 Personal history of (corrected) congenital malformations of heart and circulatory system; Z78.9 Other specified health status; K21.9 Gastro-esophageal reflux disease without esophagitis; Z99.81 Dependence on supplemental oxygen; F20.9 Schizophrenia, unspecified; E87.6 Hypokalemia; I50.9 Heart failure, unspecified; I95.9 Hypotension, unspecified; F03.90 Unspecified dementia, unspecified severity, without behavioral disturbance, psychotic disturbance, mood disturbance, and anxiety
CPT/HCPCS: 36415; 71045; 72193; 80053; 81001; 82607; 82746; 83540; 83550; 83605; 83735; 84100; 84145; 84443; 85025; 85651; 86140; 87040; 93005; 94664; 96365; 96366; 96367; 96372; 99285; G0378; J1644; J2543; J3370; J7030; J7050; J9999

== ENCOUNTER → 2025-04-22 13:20 | Outpatient (BNVA) | payer MEDICARE, MEDICAID, SELFPAY ==
[2025-04-04 15:49] VITALS: BP 104/82; BMI 34.4
== END ==
PROVIDERS: PCP Family Medicine; Visit Provider Surgery
DX: K46.9 Unspecified abdominal hernia without obstruction or gangrene (principal)
CPT/HCPCS: 99214

== ENCOUNTER → 2025-04-29 10:44 | Outpatient (BNVA) | payer MEDICARE, MEDICAID, SELFPAY ==
[2025-04-04 15:49] VITALS: BP 104/82; BMI 34.4
== END ==
PROVIDERS: PCP Family Medicine; Visit Provider Family Medicine
DX: R32 Unspecified urinary incontinence (principal)
CPT/HCPCS: 81000; 87086

== ENCOUNTER → 2025-05-27 10:39 | Outpatient (BNVA) | payer MEDICARE, MEDICAID, SELFPAY ==
[2025-04-04 15:49] VITALS: BP 104/82; BMI 34.4
== END ==
PROVIDERS: PCP Family Medicine; Visit Provider Family Medicine
DX: Z12.5 Encounter for screening for malignant neoplasm of prostate (principal); I50.32 Chronic diastolic (congestive) heart failure
CPT/HCPCS: 80048; G0103

== ENCOUNTER → 2025-07-15 14:50 | Outpatient (BNVA) | payer MEDICARE, MEDICAID, SELFPAY ==
[2025-04-04 15:49] VITALS: BP 104/82; BMI 34.4
== END ==
PROVIDERS: PCP Family Medicine; Visit Provider Internal Medicine Cardiovascular Disease
DX: I42.9 Cardiomyopathy, unspecified (principal); R00.1 Bradycardia, unspecified; I08.0 Rheumatic disorders of both mitral and aortic valves; I37.1 Nonrheumatic pulmonary valve insufficiency
CPT/HCPCS: 99214